=== PATIENT | male | born 1945 | race Caucasian/White ===

== ENCOUNTER 2018-10-06 09:46 | Emergency (ER) | payer MEDICARE, OTHER, SELFPAY ==
[2018-10-06 09:54] VITALS: BP 149/76; PULSE 76; RESP 16; TEMP 36.3; O2SAT 97
--- NOTE | 2018-10-06 09:59 | W.ED.GENAD ---
Discharge Plan Disposition Patient Disposition: HOME Condition: Fair Discharge Details Chief Complaint: Sorethroat Clinical Impression: URI (upper respiratory infection), Acute pharyngitis Primary Care Provider: Kei Gonzalez ED Provider: Fidelina Colón Home Meds and New Rx's Prescriptions: New benzonatate [Tessalon Perles] 100 mg capsule 100 mg PO QID PRN (Reason: cough) Qty: 10 RF: 0 Continued aspirin [Aspir-81] 81 MG tablet,delayed release (DR/EC) 81 mg PO DAILY RF: 0 gemfibrozil 600 MG tablet 600 mg PO BID RF: 0 magnesium oxide 250 MG tablet 250 mg PO DAILY RF: 0 cholecalciferol (vitamin D3) [Vitamin D3] 2,000 UNIT capsule 2,000 unit PO DAILY RF: 0 terazosin 5 MG capsule 5 mg PO HS RF: 0 levothyroxine 25 MCG tablet 75 mcg PO DAILY RF: 0 amlodipine 10 MG tablet 10 mg PO DAILY RF: 0 lisinopril-hydrochlorothiazide 1 EACH tablet 1 tab PO DAILY RF: 0 naproxen 500 MG tablet 500 mg PO DAILY RF: 0 Discharge Instructions Instructions: Pharyngitis (ED), Upper Respiratory Infection (ED) Additional Instructions: Encourage hydration. May continue with Aleve to help with discomfort. He may augment this with Tylenol. 500 mg every 6 hours as needed. He may also try warm water and honey to help with sore throat. Tessalon Perles as prescribed to help with cough. Afrin or nasal saline may help with congestion and postnasal drip. If you develop fevers, difficulty breathing, shortness of breath, inability to stay hydrated or other new/worsening symptoms please seek care urgently once again. If you have not improved next week please follow-up with primary care. Referrals: Kei Gonzalez [Primary Care Provider] - Discharge Data Discharge Date/Time-TO BE ENTERED AT DEPARTURE: 10/06/18 10:29 Medical Decision Making Patient 73-year-old male, accompanied by daughter, with chief complaint of sore throat. He reports that he initially began with upper respiratory symptoms such as a cold approximately 1 week ago. He reports that his cough has been improving. Denies any fevers or chills. Denies any shortness of breath. Primary concern at this time is sore throat which began 2 days ago. States that 2 days ago he also began noting more congestion and sinus discomfort. Has tried NyQuil which did help and get rest. Is endorsing postnasal drip. Has been able to hydrate well. On exam, patient appears nontoxic. Breathing comfortably. No respiratory distress. Lungs are clear. Vital signs concerning for slight hypotension which patient has a history of. He is afebrile, pulse is normal. Posterior oropharynx is notable for cobblestoning but no swelling or exudate. Patient has had surgery to remove tonsils and uvula. No lymphadenopathy. No sinus discomfort with palpation peer Advised likely viral etiology. Rapid strep testing was negative. I encouraged hydration. Will prescribe Tessalon Perles as cough seems to greatly exacerbate his sore throat. Advised Afrin or nasal saline to help with sinus congestion. We discussed home remedies and [id number] management of his sore throat and postnasal drip. We discussed new/worsening symptoms when to seek care urgently once again. All his questions and concerns were addressed and he is in agreement this plan. Advised that she not take Afrin more than 3 days HPI General Mode of arrival: ambulatory. Date/Time Provider Initiated Documentation: 10/06/18 09:54. Limitations to Documentation: no limitations. Information obtained by: patient and family (accompanied by daughter). History of Present Illness 73 year old M presents to the emergency department with the chief complaint of sore throat, described as moderate, with intensity rated at 9. Quality is described as burning, Patient reports no radiation. Patient started experiencing this day(s) (2) and it has been constant. No relieving factors improve symptom(s), No exacerbating factors reported . Patient notes cough; denies chest pain, diaphoresis, fever/chills, headaches, loss of appetite, nausea/vomiting, rash, shortness of breath and weakness. Patient did receive the following treatments prior to arrival, other (nyquil) Related Data Home Medications Medication Instructions Recorded Confirmed amlodipine 10 mg PO DAILY 11/18/13 10/06/18 levothyroxine 75 mcg PO DAILY 11/18/13 10/06/18 lisinopril-hydrochlorothiazide 1 tab PO DAILY 11/18/13 10/06/18 naproxen 500 mg PO DAILY 11/18/13 10/06/18 terazosin 5 mg PO HS 11/18/13 07/06/17 aspirin [Aspir-81] 81 mg PO DAILY tab-cap 10/10/16 10/06/18 cholecalciferol (vitamin D3) 2,000 unit PO DAILY tab-cap 10/10/16 10/06/18 [Vitamin D3] gemfibrozil 600 mg PO BID tab-cap 10/10/16 10/06/18 magnesium oxide 250 mg PO DAILY tab-cap 10/10/16 10/06/18 benzonatate [Tessalon Perles] 100 mg PO QID PRN #10 [facility] 10/06/18 Previous Rx's Medication Instructions Recorded benzonatate [Tessalon Perles] 100 mg PO QID PRN #10 [facility] 10/06/18 Allergies Allergy/AdvReac Type Severity Reaction Status Date / Time No Known Allergies Allergy Unverified 10/06/18 09:57 General Stated Complaint: Sorethroat SUE: 5 Review of Systems Constitutional Reports as per HPI, Denies chills, Denies fever(s), Denies headache(s) and Denies poor appetite Eyes Reports as per HPI, Denies eye discharge and Denies irritation ENT Denies ear discharge, Denies otalgia, Denies headache(s), Reports nasal congestion, Reports nasal discharge, Reports post nasal drip, Denies sinus pain, Reports sinus pressure, Reports sore throat and Denies throat swelling Cardiovascular Reports as per HPI, Denies chest pain and Denies dyspnea Respiratory Reports cough, Denies pain on inspiration, Denies pain with cough and Denies dyspnea Gastrointestinal Reports as per HPI, Denies abdominal pain, Denies change in bowel habits, Denies nausea and Denies vomiting Integumentary/Breasts Reports as per HPI and Denies rash Neurologic Denies headache(s) Allergic/Immunologic Denies throat swelling [facility] Social History Smoking/Tobacco Use Status: Never Exam Const General: cooperative, healthy appearing, comfortable, no acute distress, well developed and well groomed Nutritional Appearance: average body habitus and well nourished Orientation: alert and awake [facility] Head: normal to inspection, normocephalic and atraumatic Ears: hearing grossly normal bilaterally, external ears normal and TM's normal bilaterally General nose exam: external nose normal and nares normal Face and sinus: normal facial exam, sinuses nontender and face symmetric Mouth: oral mucosae normal, lip normal, tongue normal, oropharynx normal, moist mucous membranes, no muffled voice, no trismus and No restricted motion Teeth and gingiva: dentition normal Throat: uvula not midline (uvula absent), posterior oropharynx abnormal cobblestoning and tonsils absent Eyes General: appearance normal, both eyes and all related structures Neck Neck: normal visual inspection, full ROM, no lymphadenopathy and no meningeal signs Resp Effort & Inspection: normal respiratory effort, able to speak in complete sentences and no respiratory distress Auscultation: clear to auscultation bilaterally, no rales, no rhonchi and no wheezes Cardio Rate: regular rate Rhythm: regular rhythm Heart Sounds: murmur systolic Skin General skin exam: no rashes or lesions noted Neuro General: alert and awake Cognition: normal cognition Speech: speech normal Gait: normal gait Psych Appearance: grossly normal and well kempt Mental Status: mental status grossly normal Speech and Movement: speech and movement normal Course Vital Signs Temperature 36.3 C L 10/06/18 09:54 Pulse 76 10/06/18 09:54 Respiratory Rate 16 10/06/18 09:54 Blood Pressure 149/76 H 10/06/18 09:54 Pulse Oximetry 97 10/06/18 09:54 Temperature 36.3 C L 10/06/18 09:54 Temperature Source Skin 10/06/18 09:54 Pulse 76 10/06/18 09:54 Respiratory Rate 16 10/06/18 09:54 Respiratory Effort Non-Labored 10/06/18 09:54 Blood Pressure 149/76 H 10/06/18 09:54 Pulse Oximetry 97 10/06/18 09:54 Oxygen Delivery Method Room Air 10/06/18 09:54 Oxygen Flow Rate 0 10/06/18 09:54 Pain Level 9 10/06/18 09:54
--- NOTE | 2018-10-06 10:24 | ED.GENADUL_ITS ---
Discharge Plan Disposition Patient Disposition: HOME Condition: Fair Discharge Details Chief Complaint: Sorethroat Clinical Impression: URI (upper respiratory infection), Acute pharyngitis Primary Care Provider: Kei Gonzalez ED Provider: Fidelina Colón Home Meds and New Rx's Prescriptions: New benzonatate [Tessalon Perles] 100 mg capsule 100 mg PO QID PRN (Reason: cough) Qty: 10 RF: 0 Continued aspirin [Aspir-81] 81 MG tablet,delayed release (DR/EC) 81 mg PO DAILY RF: 0 gemfibrozil 600 MG tablet 600 mg PO BID RF: 0 magnesium oxide 250 MG tablet 250 mg PO DAILY RF: 0 cholecalciferol (vitamin D3) [Vitamin D3] 2,000 UNIT capsule 2,000 unit PO DAILY RF: 0 terazosin 5 MG capsule 5 mg PO HS RF: 0 levothyroxine 25 MCG tablet 75 mcg PO DAILY RF: 0 amlodipine 10 MG tablet 10 mg PO DAILY RF: 0 lisinopril-hydrochlorothiazide 1 EACH tablet 1 tab PO DAILY RF: 0 naproxen 500 MG tablet 500 mg PO DAILY RF: 0 Discharge Instructions Instructions: Pharyngitis (ED), Upper Respiratory Infection (ED) Additional Instructions: Encourage hydration. May continue with Aleve to help with discomfort. He may augment this with Tylenol. 500 mg every 6 hours as needed. He may also try warm water and honey to help with sore throat. Tessalon Perles as prescribed to help with cough. Afrin or nasal saline may help with congestion and postnasal drip. If you develop fevers, difficulty breathing, shortness of breath, inability to stay hydrated or other new/worsening symptoms please seek care urgently once again. If you have not improved next week please follow-up with primary care. Referrals: Kei Gonzalez [Primary Care Provider] - Discharge Data Discharge Date/Time-TO BE ENTERED AT DEPARTURE: 10/06/18 10:29 Medical Decision Making Patient 73-year-old male, accompanied by daughter, with chief complaint of sore throat. He reports that he initially began with upper respiratory symptoms such as a cold approximately 1 week ago. He reports that his cough has been improving. Denies any fevers or chills. Denies any shortness of breath. Primary concern at this time is sore throat which began 2 days ago. States that 2 days ago he also began noting more congestion and sinus discomfort. Has tried NyQuil which did help and get rest. Is endorsing postnasal drip. Has been able to hydrate well. On exam, patient appears nontoxic. Breathing comfortably. No respiratory distress. Lungs are clear. Vital signs concerning for slight hypotension which patient has a history of. He is afebrile, pulse is normal. Posterior oropharynx is notable for cobblestoning but no swelling or exudate. Patient has had surgery to remove tonsils and uvula. No lymphadenopathy. No sinus discomfort with palpation peer Advised likely viral etiology. Rapid strep testing was negative. I encouraged hydration. Will prescribe Tessalon Perles as cough seems to greatly exacerbate his sore throat. Advised Afrin or nasal saline to help with sinus congestion. We discussed home remedies and [id number] management of his sore throat and postnasal drip. We discussed new/worsening symptoms when to seek care u rgently once again. All his questions and concerns were addressed and he is in agreement this plan. Advised that she not take Afrin more than 3 days HPI General Mode of arrival: ambulatory . Date/Time Provider Initiated Documentation: 10/06/18 09:54 . Limitations to Documentation: no limitations . Information obtained by: patient and family (accompanied by daughter) . History of Present Illness 73 year old M presents to the emergency department with the chief complaint of sore throat, described as moderate, with intensity rated at 9. Quality is described as burning, Patient reports no radiation. Patient started experiencing this day(s) (2) and it has been constant. No relieving factors improve symptom(s), No exacerbating factors reported . Patient notes cough; denies chest pain, diaphoresis, fever/chills, headaches, loss of appetite, nausea/vomiting, rash, shortness of breath and weakness. Patient did receive the following treatments prior to arrival, other (nyquil) Related Data Home Medications Medication Instructions Recorded Confirmed amlodipine 10 mg PO DAILY 11/18/13 10/06/18 levothyroxine 75 mcg PO DAILY 11/18/13 10/06/18 lisinopril-hydrochlorothiazide 1 tab PO DAILY 11/18/13 10/06/18 naproxen 500 mg PO DAILY 11/18/13 10/06/18 terazosin 5 mg PO HS 11/18/13 07/06/17 aspirin [Aspir-81] 81 mg PO DAILY tab-cap 10/10/16 10/06/18 cholecalciferol (vitamin D3) 2,000 unit PO DAILY tab-cap 10/10/16 10/06/18 [Vitamin D3] gemfibrozil 600 mg PO BID tab-cap 10/10/16 10/06/18 magnesium oxide 250 mg PO DAILY tab-cap 10/10/16 10/06/18 benzonatate [Tessalon Perles] 100 mg PO QID PRN #10 [facility] 10/06/18 Previous Rx's Medication Instructions Recorded benzonatate [Tessalon Perles] 100 mg PO QID PRN #10 [facility] 10/06/18 Allergies Allergy/AdvReac Type Severity Reaction Status Date / Time No Known Allergies Allergy Unverified 10/06/18 09:57 General Stated Complaint: Sorethroat SUE: 5 Review of Systems Constitutional Reports as per HPI, Denies chills, Denies fever(s), Denies headache(s) and Denies poor appetite Eyes Reports as per HPI, Denies eye discharge and Denies irritation ENT Denies ear discharge, Denies otalgia, Denies headache(s), Reports nasal congestion, Reports nasal discharge, Reports post nasal drip, Denies sinus pain, Reports sinus pressure, Reports sore throat and Denies throat swelling Cardiovascular Reports as per HPI, Denies chest pain and Denies dyspnea Respiratory Reports cough, Denies pain on inspiration, Denies pain with cough and Denies dyspnea Gastrointestinal Reports as per HPI, Denies abdominal pain, Denies change in bowel habits, Denies nausea and Denies vomiting Integumentary/Breasts Reports as per HPI and Denies rash Neurologic Denies headache(s) Allergic/Immunologic Denies throat swelling [facility] Social History Smoking/Tobacco Use Status: Never Exam Const General: cooperative, healthy appearing, comfortable, no acute distress, well developed and well groomed Nutritional Appearance: average body habitus and well nourished Orientation: alert and awake [facility] Head: normal to inspection, normocephalic and atraumatic Ears: hearing grossly normal bilaterally, external ears normal and TM's normal bilaterally General nose exam: external nose normal and nares normal Face and sinus: normal facial exam, sinuses nontender and face symmetric Mouth: oral mucosae normal, lip normal, tongue normal, oropharynx normal, moist mucous membranes, no muffled voice, no trismus and No restricted motion Teeth and gingiva: dentition normal Throat: uvula not midline (uvula absent), posterior oropharynx abnormal cobblestoning and tonsils absent Eyes General: appearance normal, both eyes and all related structures Neck Neck: normal visual inspection, full ROM, no lymphadenopathy and no meningeal signs Resp Effort & Inspection: normal respiratory effort, able to speak in complete sentences and no respiratory distress Auscultation: clear to auscultation bilaterally, no rales, no rhonchi and no wheezes Cardio Rate: regular rate Rhythm: regular rhythm Heart Sounds: murmur systolic Skin General skin exam: no rashes or lesions noted Neuro General: alert and awake Cognition: normal cognition Speech: speech normal Gait: normal gait Psych Appearance: grossly normal and well kempt Mental Status: mental status grossly normal Speech and Movement: speech and movement normal Course Vital Signs Temperature 36.3 C L 10/06/18 09:54 Pulse 76 10/06/18 09:54 Respiratory Rate 16 10/06/18 09:54 Blood Pressure 149/76 H 10/06/18 09:54 Pulse Oximetry 97 10/06/18 09:54 Temperature 36.3 C L 10/06/18 09:54 Temperature Source Skin 10/06/18 09:54 Pulse 76 10/06/18 09:54 Respiratory Rate 16 10/06/18 09:54 Respiratory Effort Non-Labored 10/06/18 09:54 Blood Pressure 149/76 H 10/06/18 09:54 Pulse Oximetry 97 10/06/18 09:54 Oxygen Delivery Method Room Air 10/06/18 09:54 Oxygen Flow Rate 0 10/06/18 09:54 Pain Level 9 10/06/18 09:54
== END 2018-10-06 10:29 | disposition home or self-care (01) ==
PROVIDERS: Emergency Provider Physician Assistant; PCP Family Medicine
DX: J06.9 Acute upper respiratory infection, unspecified (principal)
CPT/HCPCS: 87880; 99283; 87081

== ENCOUNTER 2022-07-20 14:58 | Emergency (ER) | payer OTHER, SELFPAY ==
[2022-07-20] VITALS (64 sets, daily range): BP systolic 147–186; BP diastolic 78–95; PULSE 56–68; RESP 9–27; TEMP 36.6–36.8; O2SAT 98
--- NOTE | 2022-07-20 15:00 | RT.EKG_ITS ---
APPROVED REPORT Exam: Resting ECG Reason for Exam: chest pain Patient Location: E HR:61 bpm ECG Measurements Heart Rate 61 AXIS NE 212 P 47 QRSd 96 QRS 72 QT 425 T 119 QTc 428 Conclusion Sinus rhythm...normal P axis, V-rate 60- 99 Borderline prolonged NE interval...NE >212, V-rate 50- 90 Probable left atrial enlargement...P >50mS, <-0.10mV V1 Probable inferior infarct, age indeterminate...Q>35mS, T neg, II III aVF Nonspecific T abnormalities, lateral leads...T <-0.10mV, I aVL V5 V6 sinus rhtyhm, normal axis, normal intervals, nonischemic
--- NOTE | 2022-07-20 16:00 | DI.RAD_ITS ---
Exam(s) XR PORTABLE CHEST AP EXAM: XR PORTABLE CHEST AP CLINICAL HISTORY: chest pain TECHNIQUE: 2D digital imaging was performed of the chest. One image was obtained. An AP view was ob tained. COMPARISON: CR CHEST 2 VIEWS PA,LAT from 11/18/2013 FINDINGS: MEDIASTINUM: Normal. HEART: Normal. PULMONARY VASCULATURE: Normal. LUNGS: Clear. PLEURAL SPACE: No pleural effusion or pneumothorax. BONE:Within normal limits for the patient's age. OTHER FINDINGS:Normal. IMPRESSION: No acute pulmonary findings. DATA REPOSITORY: RADIATION DOSE DELIVERED:
--- NOTE | 2022-07-20 16:02 | ED.GENADUL_ITS ---
Discharge Plan Disposition Patient Disposition: HOME Condition: Improving Discharge Details Chief Complaint: Chest Pain Clinical Impression: Chest pain, Abnormal liver enzymes, Kidney lesion Primary Care Provider: Chan Martinez ED Provider: Magno Christensen Home Meds and New Rx's Prescriptions: No Action aspirin [Aspir-81] 81 MG tablet,delayed release (DR/EC) 81 mg PO DAILY gemfibrozil 600 MG tablet 600 mg PO BID terazosin 5 MG capsule 5 mg PO HS levothyroxine 25 MCG tablet 75 mcg PO DAILY amlodipine 10 MG tablet 10 mg PO DAILY lisinopril-hydrochlorothiazide 1 EACH tablet 1 tab PO DAILY naproxen 500 MG tablet 500 mg PO PRN PRN tamsulosin 0.4 mg Capsule 0.4 mg PO DAILY finasteride 1 mg Tablet Discharge Instructions Instructions: Chest Pain (ED) Additional Instructions: Please follow-up with your primary care physician. Please follow-up with cardiology referral. Please return to the emergency department for any worsening symptoms Medical Decision Making 77-year-old male presents with exertional chest pain and dyspnea over the several days. Resolved with rest. Currently asymptomatic, hemodynamically stable. No peripheral edema. Lungs clear bilaterally. EKG nonischemic. Consider ACS versus angina versus musculoskeletal inflammation versus less likely GERD versus unlikely PE or aortic pathology. Will obtain screening EKG, x-ray, labs, aspirin close reassessment of symptoms. Disposition pending lab results reassessment of symptoms 19: 21 patient resting intervally no acute distress chest pain-free no respiratory symptoms. Hemodynamically stable. Given LFT elevations and bilirubin elevations, CT abdomen pelvis was ordered which was negative for acute biliary process however incidental kidney cyst found. Counseled patient regarding this incidental finding. Also counseled regarding LFT elevations. Will follow with primary care physician. Will be given cardiology referral given exertional dyspnea and chest pain HPI General Date/Time Provider Initiated Documentation: 07/20/22 16:00 . HPI Narrative: 77-year-old presents with chief of the past several days worse with exertion. Associated with mild shortness of breath. Resolves with rest. Denies leg swelling or leg pain. Denies history of coronary artery disease or intervention. Asymptomatic currently Related Data Home Medications Medication Instructions Recorded Confirmed amlodipine 10 mg tablet 10 mg PO DAILY 11/18/13 07/20/22 levothyroxine 25 mcg tablet 75 mcg PO DAILY 11/18/13 07/20/22 lisinopril 20 1 tab PO DAILY 11/18/13 07/20/22 mg-hydrochlorothiazide 25 mg tablet naproxen 500 mg tablet 500 mg PO PRN PRN 11/18/13 07/20/22 terazosin 5 mg capsule 5 mg PO HS 11/18/13 07/06/17 aspirin 81 mg tablet,delayed 81 mg PO DAILY 10/10/16 07/20/22 release (Aspir-) gemfibrozil 600 mg tablet 600 mg PO BID 10/10/16 07/20/22 finasteride 1 mg tablet mg 07/20/22 tamsulosin 0.4 mg capsule 0.4 mg PO DAILY 07/20/22 07/20/22 Allergies Allergy/AdvReac Type Severity Reaction Status Date / Time No Known Allergies Allergy Unverified 07/20/22 16:00 General Stated Complaint: Chest Pain SUE: 2 Review of Systems Narrative: Review of Systems Constitutional: negative Eyes: negative ENT: negative Cardiovascular: Chest pain Respiratory: negative Gastrointestinal: negative : negative Musculoskeletal: negative Skin: negative Neurologic: negative Psych: negative PFSH All Active Problems (Updated 07/20/22 @ 19:26 by Magno Christensen MD) Chest pain (Acute) Abnormal liver enzymes (Acute) Kidney lesion (Acute) Social History Smoking/Tobacco Use Status: Never Smoking risk assessment performed?: Yes Alcohol Intake: current Alcohol Intake frequency: a few times a month Drug use: Never Substance use type: does not use Do you feel safe at home: Yes Do you feel safe in your relationship?: Yes Additional Social history: at bedside Exam Narrative Exam Narrative: Physical Examination General: alert, awake, cooperative, resting comfortably, no acute distress HEENT: normocephalic, atraumatic; PERRL, EOM intact, conjunctiva normal; no nasal discharge; moist mucous membranes, oral and pharyngeal mucosa normal, tolerating secretions Neck: supple, trachea midline; full ROM Chest: normal to inspection Respiratory: normal respiratory effort, speaking in full sentences, clear to auscultation, no wheezing, rales or rhonchi Cardiac: regular rate, regular rhythm, S1S2 intact, no murmurs rubs or gallops GI: abdomen soft, non-tender, non-distended; no palpable mass or hepatosplenomegaly Skin: no lesions, rashes or trauma appreciated Neuro: AAOx3, normal speech, moving all extremities Extremities: No peripheral edema Psych: Appropriate mood and affect Course Vital Signs Vital signs: Vital Signs Temperature 36.6 C 07/20/22 15:08 Pulse 67 07/20/22 15:08 Respiratory Rate 18 07/20/22 15:08 Blood Pressure 169/83 H 07/20/22 15:08 Pulse Oximetry 98 07/20/22 15:08 Temperature 36.6 C 07/20/22 15:08 Temperature Source Temporal Artery Scan 07/20/22 15:08 Pulse 67 07/20/22 15:08 Respiratory Rate 18 07/20/22 15:08 Blood Pressure 169/83 H 07/20/22 15:08 Blood Pressure Position Sitting 07/20/22 15:08 Pulse Oximetry 98 07/20/22 15:08 Oxygen Delivery Method Room Air 07/20/22 15:08 Oxygen Flow Rate 0 07/20/22 15:08
[2022-07-20] MEDS: Aspirin 81 MG CHEW 243 MG CH (16:08)
[2022-07-20 16:12] LABS: Abs Immature Grans 0.04 10^3/uL (0.0-0.06); Absolute Basophil Count 0.05 10^3/uL (0.0-0.2); Absolute Eosinophil Count 0.27 10^3/uL (0.0-0.7); Absolute Lymphocyte Count 0.92 10^3/uL (1.2-3.4); Absolute Monocyte Count 0.43 10^3/uL (0.1-0.8); Absolute Neutrophil Count 3.79 10^3/uL (1.2-6.7); Basophils % 0.9; Eosinophils % 4.9; HCT 39.1 % (40.0-50.0); HGB 13.7 g/dL (13.5-17.5); Immature Grans % 0.7; Lymphocytes % 16.7; MCH 31.2 pg (27.0-33.0); MCV 89 fL (80-95); MPV 9.9 fL (8.0-11.0); Monocytes % 7.8; Platelet Count 217 10^3/uL (130-400); RBC 4.39 10^6/uL (4.36-5.78); RDW 12.1 % (11.8-14.1); RDW-SD 39.6 fL
[2022-07-20 16:27] LABS: INR 1.1 (0.9-1.1); PTT Activated 25.2 sec (21.0-27.5); Prothrombin Time 10.7 sec (9.3-11.0)
--- NOTE | 2022-07-20 16:30 | DI.CT_ITS ---
Exam(s) CT ABDOMEN PELVIS W EXAM: CT ABDOMEN PELVIS W CLINICAL HISTORY: elevated bili and LFTs, chest pain TECHNIQUE: Imaging Protocol: Axial computed tomography images with coronal and sagittal reformatted images were created and reviewed CONTRAST MATERIAL: Intravenous: Omnipaque 350 Contrast volume:100 mL Oral: No COMPARISON: No exams were available for comparison FINDINGS: ABDOMEN: Lung Bases: Coronary artery calcifications are present. Calcified granuloma are present. Liver: There does appear to be decreased density of the liver suggesting fatty infiltration. No danitza urable mass. Portal, Superior Mesenteric, and Splenic Veins: Unremarkable. Gallbladder and Biliary Tract: Cholelithiasis is present. There is no biliary ductal dilatation. Pancreas: Normal density, no abnormal calcifications or inflammatory process. Spleen: Normal. Adrenals: No masses seen. Kidneys: Normal size, contour and axis. No radiodense stones or obstructive uropathy. There is a 1.2 cm simple cyst in the right kidney. There is a 1.1 cm hyperdense left renal cortical lesion. Abdominal Aorta: Abdominal portion non-dilated. Atherosclerosis is present. Bowel: No obstruction or bowel wall thickening. Appendix is unremarkable. There is colonic diverticul osis, but no evidence of acute diverticulitis. Peritoneal Cavity: There is a small amount of free fluid in the pelvis. No free air. Lymph Nodes: Within normal limits. Bones: Within normal limits for the patient's age. Soft Tissues: There are small bilateral fat containing inguinal hernias. PELVIS: Bladder: There is mild symmetric thickening of the wall of the urinary bladder. Reproductive Organs: There is an enlarged prostate gland. Lymph Nodes: Within normal limits. Bones: Within normal limits for the patient's age. IMPRESSION: 1. Fatty infiltration of the liver. 2. Cholelithiasis. No evidence of acute cholecystitis on this examination. 3. 1.1 cm hyperdense left renal lesion. This may represent a hemorrhagic or proteinaceous cyst versu s a solid lesion. Correlation with ultrasound or MRI is recommended. RADIATION DOSE DELIVERED: 1,331.81mGy.cm Total DLP DATA REPOSITORY: All CT scans at this facility are submitted to the National Radiology Data Registry (NRDR) Dose Index Registry (DIR) with the [employer] (ACR). RADIATION OPTIMIZATION: All CT scans at this facility use at least one of these dose optimization te chniques: automated exposure control; mA and/or kV adjustment per patient size (includes targeted exa ms where dose is matched to clinical indication); or iterative reconstruction.
[2022-07-20 16:31] LABS: ALT 541 U/L (16-63); AST 361 U/L (15-37); Albumin 4.3 g/dL (3.4-5.0); Alkaline Phosphatase 129 U/L (46-116); Anion Gap 7.3 mmol/L (3-11); BUN 21 mg/dL (7-18); Bilirubin, Total 2.9 mg/dL (0.2-1.0); CO2 31.7 mmol/L (21.0-32.0); CREATININE 1.1 mg/dL (0.70-1.30); Calcium 9.4 mg/dL (8.5-10.1); Chloride 102 mmol/L (98-107); Estimated GFR 69.14 (mL/min/1.73m2); Glucose 112 mg/dL (74-106); Potassium 3.6 mmol/L (3.5-5.1); Sodium 141 mmol/L (136-145); Total Protein 7.3 g/dL (6.4-8.2); Troponin I < 50 ng/L (<or=60)
[2022-07-20] MEDS: Omnipaque 350 MG/ML 100 ML BTL IJ (18:01)
[2022-07-20] MEDS: Normal Saline - Diluent 50 ML VIAL IV (18:02)
[2022-07-20 18:55] LABS: Lipase 157 U/L (73-393)
--- NOTE | 2022-07-20 18:55 | DI.VRAD_ITS ---
PROCEDURE INFORMATION: Exam: CT Abdomen And Pelvis With Contrast Exam date and time: 07/20/2022 5:56 PM Age: 77 years old Clinical indication: Other: Elevated bili and lfts, chest pain TECHNIQUE: Imaging protocol: Computed tomography of the abdomen and pelvis with contrast. Contrast material: OMNIPAQUE 350; Contrast volume: 100 ml; Contrast route: INTRAVENOUS (IV); COMPARISON: CR XR PORTABLE CHEST AP 07/20/2022 4:07 PM FINDINGS: Heart: Coronary artery calcifications. Liver: Diffuse decrease in hepatic parenchymal density, consistent with fatty infiltration. Gallbladder and bile ducts: Stones at the gallbladder. Pancreas: Normal. No ductal dilation. Spleen: Normal. No splenomegaly. Adrenal glands: Normal. No mass. Kidneys and ureters: 1.2 cm simple cyst right kidney. No hydronephrosis. No ureteral stones. 11 mm indeterminate hyperdense lesion left kidney, hemorrhagic or proteinaceous cyst versus solid lesion. Stomach and bowel: Colonic diverticula present. No evidence of acute diverticulitis at this time. Appendix: No evidence of appendicitis. Intraperitoneal space: Mild free fluid. Vasculature: Aorta demonstrates mild atherosclerotic calcification. Lymph nodes: Unremarkable. No enlarged lymph nodes. Urinary bladder: Unremarkable as visualized. Reproductive: Hypertrophy of the prostate. Bones/joints: Unremarkable. No acute fracture. Soft tissues: Bilateral fat containing inguinal hernias without incarceration. IMPRESSION: 1. 11 mm indeterminate hyperdense lesion left kidney, hemorrhagic or proteinaceous cyst versus solid lesion. 2. Cholelithiasis. Dictated and Authenticated by: Ronald Alexander MD. Ordering:CHRIS Kiran MD
[2022-07-20 19:03] LABS: Troponin I < 50 ng/L (<or=60)
--- NOTE | 2022-07-20 19:56 | NUR.NOTE ---
Referral to Care Management to help set up [facility] [place] [facility] [place].Nursing Note:
== END 2022-07-20 19:42 | disposition home or self-care (01) ==
PROVIDERS: Emergency Provider Emergency Medicine; PCP Internal Medicine
DX: R07.9 Chest pain, unspecified (principal); R17 Unspecified jaundice; N28.9 Disorder of kidney and ureter, unspecified; R06.00 Dyspnea, unspecified
CPT/HCPCS: 36415; 80053; 83690; 93005; 96360; 99285; 71045; 74177; 84484; 85025; 85610; 85730; 93010; J3490

== ENCOUNTER 2022-12-09 17:16 | Observation (INO) | payer OTHER, SELFPAY ==
[2022-12-09] VITALS (29 sets, daily range): BP systolic 145–190; BP diastolic 71–87; PULSE 59–86; RESP 10–20; TEMP 36.6; O2SAT 80–100
--- NOTE | 2022-12-09 17:26 | W.ED.GENAD ---
Discharge Plan Disposition Patient Disposition: Admit to [facility] Condition: Fair Discharge Details Clinical Impression: Closed head injury with concussion, Hematoma of left parietal scalp, Chest wall contusion Primary Care Provider: Chan Martinez ED Provider: Obinna Lopez [facility] and New Rx's Prescriptions: No Action aspirin [Aspir-81] 81 MG tablet,delayed release (DR/EC) 81 mg PO DAILY levothyroxine 25 MCG tablet 75 mcg PO DAILY amlodipine 10 MG tablet 10 mg PO DAILY lisinopril-hydrochlorothiazide 1 EACH tablet 1 tab PO DAILY tamsulosin 0.4 mg Capsule 0.4 mg PO DAILY Medical Decision Making Patient presents to ED status post trauma related loss of consciousness with no recollection of what actually occurred. His was present and states that his loss of consciousness was short lived. He has evidence of scalp hematoma, small superficial laceration behind the left ear, anterior chest wall pain, neck pain, back pain. He is hemodynamically stable. He is neurologically intact. IV established and CT scans of the head, cervical spine, chest, abdomen, pelvis ordered. Laboratory studies sent. Morphine given for pain. Patient's EKG is sinus rhythm with no acute changes. Laboratory studies are unremarkable. His hemoglobin is normal. CT scans preliminarily read by radiology are all negative for any significant acute traumatic findings. Collar is removed patient with good range of motion of the neck. Complaining of headache, nausea, continued anterior and left shoulder pain. Likely suffered concussion with his fall and loss of consciousness. Will give Zofran for the nausea. We will try lidocaine patch on the anterior chest wall. Will reevaluate for potential discharge. Patient is unable to even sit up in bed without extreme nausea and dizziness. Discussed with surgery, Dr. Torres, for admission for concussion. Patient accepted to surgical service for further observation and management of his closed head injury with concussion, chest wall contusion, scalp hematoma. Lab Data Lab results reviewed: Yes I reviewed the patient's lab results. ECG Data Attestation: I personally reviewed and interpreted this ECG (s) as follows: Prior ECG tracings: available for review Interpretation: see EKG HPI General Mode of arrival: ambulatory. Date/Time Provider Initiated Documentation: 12/09/22 17:26. Limitations to Documentation: no limitations. Information obtained by: patient. HPI Narrative: Patient presents to ED status post presumed fall off a ladder with loss of consciousness. was in the room but was not witness to exactly what happened. He was trying to remove a being and he has no recollection of whether he fell or whether the being struck him. His reports that she found him on the floor unconscious for short period of time. He has significant pain and swelling to the left side of his head with some blood behind his left ear. He has some neck pain. He denies any neurologic symptoms. He denies nausea or vomiting. He complains of left anterior chest pain that is worse with breathing. He does not feel short of breath. He denies abdominal pain but does have low back pain. Denies any extremity injury. Related Data Home Medications Medication Instructions Recorded Confirmed amlodipine 10 mg tablet 10 mg PO DAILY 11/18/13 12/09/22 levothyroxine 25 mcg tablet 75 mcg PO DAILY 11/18/13 12/09/22 lisinopril 20 1 tab PO DAILY 11/18/13 12/09/22 mg-hydrochlorothiazide 25 mg tablet aspirin 81 mg tablet,delayed 81 mg PO DAILY 10/10/16 12/09/22 release (Aspir-) tamsulosin 0.4 mg capsule 0.4 mg PO DAILY 07/20/22 12/09/22 Allergies Allergy/AdvReac Type Severity Reaction Status Date / Time [id number] Reductase AdvReac Unknown Unverified 12/09/22 17:30 Inhibitor General USE: 2 Review of Systems Narrative: per HPI PFSH All Active Problems (Updated 12/09/22 @ 21:23 by Obinna Lopez MD) Closed head injury with concussion (Acute) Hematoma of left parietal scalp (Acute) Chest wall contusion (Acute) Medical History (Updated 12/09/22 @ 21:23 by Obinna Lopez MD) BPH (benign prostatic hyperplasia) HTN (hypertension) Hypercholesterolemia Hypothyroid Social History Smoking/Tobacco Use Status: Never Smoking risk assessment performed?: Yes Alcohol Intake: current Alcohol Intake frequency: a few times a month Drug use: Never Substance use type: does not use Do you feel safe at home: Yes Do you feel safe in your relationship?: Yes Additional Social history: at bedside Exam Narrative Exam Narrative: Const: WDWN elderly male in NAD. HEENT: NC. Large scalp hematoma to left parietal region. Very small laceration behind his left ear presumably from his glasses. Eyes: PERRL and EOMI. Normal conjunctiva and sclera. Neck: Trachea midline. Mild tenderness posterior cervical spine. Collar applied. Lungs: Normal respiratory effort. Lungs are clear. Tenderness left anterior chest. Cor: RRR without murmur/gallop. Good radial pulses. GI: Soft. NT/ND. No guarding or rebound. Back: No spinal tenderness. Neuro: A+O x 3. Normal speech, mentation, gait. Cranial nerves II - XII grossly intact. No gross motor or sensory deficit. Ext: No C/C/E. No deformity or tenderness.
--- NOTE | 2022-12-09 17:30 | RT.EKG_ITS ---
APPROVED REPORT Exam: Resting ECG Reason for Exam: chest pain Patient Location: E HR:77 bpm ECG Measurements Heart Rate 77 AXIS NE 202 P 60 QRSd 90 QRS 46 QT 413 T 49 QTc 468 Conclusion Sinus rhythm...normal P axis, V-rate 60- 99 Probable left atrial enlargement...P >50mS, <-0.10mV V1 There are no significant changes compared to prior EKG performed on 07/20/2022 at 15:19.
--- NOTE | 2022-12-09 17:30 | DI.CT_ITS ---
Exam(s) CT HEAD CERVICAL SPINE WO EXAM: CT HEAD CERVICAL SPINE WO CLINICAL HISTORY: fall from ladder with LOC. TECHNIQUE: Imaging Protocol: Axial computed tomography images with coronal and sagittal reformatted images were created and reviewed COMPARISON: No exams were available for comparison FINDINGS: BRAIN: There is a prominent left side scalp hematoma over the left temporoparietal region. There are no skull fractures. There is almost complete opacification of the left maxillary sinus. N o obvious fracture. Right maxillary sinus is clear. Sphenoid sinuses are clear. Frontal sinuses ar e clear although there is some mucosal thickening at the frontoethmoidal recesses and ethmoid air jose ls bilaterally. Mastoid air cells are clear. No fluid in the middle ear cavities. No basal skull f racture. There is no evidence of intracranial hemorrhage, mass effect, or shift of midline structures. There are no extra-axial fluid collections. The ventricles are not enlarged or shifted and there is no blo od within the ventricular system nor within the basal cisterns. CERVICAL SPINE: There is no evidence of fracture nor listhesis. No significant prevertebral soft tissue swelling. Multilevel chronic multilevel degenerative disc disease as well as prominent anterior bony ridging C3 -4-5-6 levels. Some facet arthropathy. There is no significant facet joint malalignment. No significant osseous lesions evident. IMPRESSION: No acute intracranial findings on this noninfused CT scan of the brain.Large left sided scalp hematom a. No evidence of epidural nor subdural hematoma at this time. Opacified left maxillary sinus. Right maxillary sinus is clear. No evidence of cervical spine fracture, malalignment, nor acute compromise of the cervical spinal can al. First read by [facility]. RADIATION DOSE DELIVERED: 1,630.34mGy.cm Total DLP DATA REPOSITORY: All CT scans at this facility are submitted to the National Radiology Data Registry (NRDR) Dose Index Registry (DIR) with the [employer] (ACR). RADIATION OPTIMIZATION: All CT scans at this facility use at least one of these dose optimization te chniques: automated exposure control; mA and/or kV adjustment per patient size (includes targeted exa ms where dose is matched to clinical indication); or iterative reconstruction.
--- NOTE | 2022-12-09 17:39 | DI.CT_ITS ---
Exam(s) CT CHEST/ABD/PEL W EXAM: CT CHEST/ABD/PEL W CLINICAL HISTORY: fall from ladder with LOC, CP, Back pain. TECHNIQUE: Imaging Protocol: Axial computed tomography images with coronal and sagittal reformatted images were created and reviewed CONTRAST MATERIAL: Intravenous: Omnipaque 350 Contrast volume:100 ml Oral: None COMPARISON: CT CT ABDOMEN PELVIS W from 07/20/2022 FINDINGS: CHEST: LUNGS: No confluent infiltrates nor pleural effusions. No pneumothorax. Some mucus is noted in the posterior right side wall of the trachea. No mucus in the mainstem bronchi.. MEDIASTINUM: No evidence of sternal fracture or mediastinal hematoma. No incidental hilar nor medias tinal adenopathy. Innominate vein and visualized great vessels appear intact. Visualized thyroid un remarkable. CARDIAC: Heart size is normal. There is no pericardial effusion.Intrathoracic aorta appears age-appr opriate. No significant trauma nor dissection of the thoracic aorta evident. OSSEOUS: No rib fractures. No compression fractures of vertebral bodies.. ABDOMEN: There is no ascites. No evidence of mesenteric nor bowel wall hematoma. LIVER: Mild steatosis. No hepatic laceration nor other significant focal findings in the liver. GALLBLADDER/BILIARY: Coli lithiasis. Small gallstones noted. No gallbladder wall edema. CBD not di lated. PANCREAS: No evidence of pancreatic mass nor dilatation of the pancreatic duct. SPLEEN: Normal size. No laceration evident. Splenic and portal veins are patent. Splenic and jonas l veins are patent. ADRENALS: There are no significant adrenal masses. KIDNEYS: No evidence of renal laceration or subcapsular hematoma. No cysts nor solid masses. No vikram culi. No hydronephrosis. No hydroureter. No clots nor other significant focal findings in the urin nick bladder with the exception of enlarged prostate projecting. ABDOMINAL AORTA: Calcified but not enlarged.. Common iliac arteries are also calcified but not enlar ged. No dissection flaps. LYMPH NODES: There is no retroperitoneal nor paraaortic adenopathy. ABDOMINAL WALL: No evidence of significant anterior abdominal wall nor inguinal hernia. No subcutane ous bruising nor subcutaneous fluid collections. GI: There is no evidence of bowel obstruction.No bowel wall hematomas. PELVIS: LYMPH NODES: There is no intrapelvic nor inguinal adenopathy. GI: No evidence of appendicitis.No evidence of sigmoid diverticulitis. URINARY BLADDER: No calculi nor masses evident REPRODUCTIVE: Enlarged and lobulated prostate gland which indents the bladder base. OSSEOUS: Multilevel chronic degenerative disc disease in the lumbar spine. No fractures. No listhes is. Facet degenerative changes. No facet joint malalignment. No sacral fractures. IMPRESSION: 1. No acute posttraumatic findings in the chest, abdomen, and pelvis.. 2. Cholelithiasis. No evidence of acute cholecystitis. 3. Enlarged and lobulated prostate gland. No significant osseous lesions. 4. No acute fractures evident. RADIATION DOSE DELIVERED: 1,561.19mGy.cm Total DLP DATA REPOSITORY: All CT scans at this facility are submitted to the National Radiology Data Registry (NRDR) Dose Index Registry (DIR) with the [employer] (ACR). RADIATION OPTIMIZATION: All CT scans at this facility use at least one of these dose optimization te chniques: automated exposure control; mA and/or kV adjustment per patient size (includes targeted exa ms where dose is matched to clinical indication); or iterative reconstruction.
[2022-12-09 17:59] LABS: Abs Immature Grans 0.04 10^3/uL (0.0-0.06); Absolute Basophil Count 0.04 10^3/uL (0.0-0.2); Absolute Eosinophil Count 0.24 10^3/uL (0.0-0.7); Absolute Lymphocyte Count 1.23 10^3/uL (1.2-3.4); Absolute Monocyte Count 0.53 10^3/uL (0.1-0.8); Absolute Neutrophil Count 4.33 10^3/uL (1.2-6.7); Basophils % 0.6; Eosinophils % 3.7; HCT 41.3 % (40.0-50.0); HGB 14.7 g/dL (13.5-17.5); Immature Grans % 0.6; Lymphocytes % 19.2; MCH 30.8 pg (27.0-33.0); MCHC 35.6 % (32.0-36.0); MCV 87 fL (80-95); MPV 9.8 fL (8.0-11.0); Monocytes % 8.3; Neutrophils % 67.6; Platelet Count 168 10^3/uL (130-400); RBC 4.77 10^6/uL (4.36-5.78); RDW 12.2 % (11.8-14.1); RDW-SD 38.5 fL; WBC 6.41 10^3/uL (4.4-10.8)
[2022-12-09 18:15] LABS: ALT 65 U/L (16-63); AST 34 U/L (15-37); Albumin 4.6 g/dL (3.4-5.0); Alkaline Phosphatase 77 U/L (46-116); Anion Gap 8.3 mmol/L (3-11); BUN 28 mg/dL (7-18); Bilirubin, Total 0.7 mg/dL (0.2-1.0); CO2 28.7 mmol/L (21.0-32.0); Calcium 9.4 mg/dL (8.5-10.1); Chloride 100 mmol/L (98-107); Estimated GFR 77.52 (mL/min/1.73m2); Glucose 115 mg/dL (74-106); Potassium 3.5 mmol/L (3.5-5.1); Sodium 137 mmol/L (136-145); Total Protein 7.5 g/dL (6.4-8.2)
[2022-12-09] MEDS: MORPHine 10 MG/ML VIAL 2 MG IVP (18:23)
[2022-12-09] MEDS: Omnipaque 350 MG/ML 100 ML BTL IJ (18:35)
[2022-12-09] MEDS: Normal Saline - Diluent 50 ML VIAL IJ (18:36)
[2022-12-09] MEDS: MORPHine 10 MG/ML VIAL 6 MG IVP (18:39)
--- NOTE | 2022-12-09 19:12 | DI.VRAD_ITS ---
PROCEDURE INFORMATION: Exam: CT Head Without Contrast Exam date and time: 12/09/2022 6:42 PM Age: 77 years old Clinical indication: Injury or trauma; Fall; Concussion/head injury; Consciousness not specified; Additional info: Fall from ladder with loc, cp, back pain TECHNIQUE: Imaging protocol: Computed tomography of the head without contrast. Radiation optimization: All CT scans at this facility use at least one of these dose optimization techniques: automated exposure control; mA and/or kV adjustment per patient size (includes targeted exams where dose is matched to clinical indication); or iterative reconstruction. COMPARISON: No relevant prior studies available. FINDINGS: Brain: No intracranial hemorrhage or extra-axial fluid collection. No evidence of mass effect or midline shift. Odonnell-white matter differentiation is intact. Cerebral ventricles: No ventriculomegaly. Paranasal sinuses: Near complete opacification of the left maxillary sinus. Mastoid air cells: Unremarkable. Bones/joints: No acute calvarial fracture. Soft tissues: Left lateral scalp hematoma. IMPRESSION: 1. No acute intracranial pathology. 2. Left lateral scalp hematoma. 3. Near complete opacification of the left maxillary sinus. PROCEDURE INFORMATION: Exam: CT Cervical Spine Without Contrast Exam date and time: 12/09/2022 6:42 PM Age: 77 years old Clinical indication: Injury or trauma; Fall; Concussion/head injury; Consciousness not specified; Additional info: Fall from ladder with loc, cp, back pain TECHNIQUE: Imaging protocol: Computed tomography of the cervical spine without contrast. Radiation optimization: All CT scans at this facility use at least one of these dose optimization techniques: automated exposure control; mA and/or kV adjustment per patient size (includes targeted exams where dose is matched to clinical indication); or iterative reconstruction. COMPARISON: CR XR PORTABLE CHEST AP 07/20/2022 4:07 PM FINDINGS: Bones/joints: Vertebral body heights are maintained. No locked or perched facets. Multilevel facet arthropathy. No acute cervical spine fracture. The dens is intact. Atlanto-axial intervals are normal. Multilevel degenerative changes with intervertebral disc height loss and osteophyte formation, with multilevel areas of mild to moderate canal stenosis. Lungs: Lung apices are clear. Soft tissues: Unremarkable. IMPRESSION: No acute cervical spine fracture. Dictated and Authenticated by: Ridge Elizalde MD. Ordering:LAURENCE Yeboah MD
--- NOTE | 2022-12-09 19:30 | DI.VRAD_ITS ---
PROCEDURE INFORMATION: Exam: CT Chest With Contrast; Diagnostic Exam date and time: 12/09/2022 6:58 PM Age: 77 years old Clinical indication: Other: Fall from ladder with loc; Additional info: Fall from ladder with loc, cp, back pain TECHNIQUE: Imaging protocol: Diagnostic computed tomography of the chest with contrast. 3D rendering (Not supervised by radiologist): MIP and/or 3D reconstructed images were created by the technologist. Contrast material: 350; Contrast volume: 100 ml; Contrast route: INTRAVENOUS (IV); COMPARISON: CR XR PORTABLE CHEST AP 07/20/2022 4:07 PM FINDINGS: Lungs: Unremarkable. No consolidation. No masses. Pleural spaces: Unremarkable. No pneumothorax. No pleural effusion. Heart: Unremarkable. No cardiomegaly. No pericardial effusion. Coronary arteries: Moderate coronary artery calcification noted. Lymph nodes: Unremarkable. No enlarged lymph nodes. Vasculature: Moderate atherosclerotic calcification noted throughout the aorta. No evidence of aortic aneurysm or dissection. Bones/joints: Moderate degenerative changes are noted throughout the thoracic spine. Soft tissues: Unremarkable. IMPRESSION: No acute posttraumatic changes in the chest. Chronic osseous and atherosclerotic changes noted. PROCEDURE INFORMATION: Exam: CT Abdomen And Pelvis With Contrast Exam date and time: 12/09/2022 6:58 PM Age: 77 years old Clinical indication: Other: Fall from ladder with loc; Additional info: Fall from ladder with loc, cp, back pain TECHNIQUE: Imaging protocol: Computed tomography of the abdomen and pelvis with contrast. 3D rendering (Not supervised by radiologist): MIP and/or 3D reconstructed images were created by the technologist. Contrast material: 350; Contrast volume: 100 ml; Contrast route: INTRAVENOUS (IV); COMPARISON: CT ABDOMEN PELVIS W 07/20/2022 5:56 PM FINDINGS: Liver: Normal. No mass. Gallbladder and bile ducts: A single small calcified gallstone noted in the gallbladder. Gallbladder is otherwise unremarkable. Pancreas: Normal. No ductal dilation. Spleen: Normal. No splenomegaly. Adrenal glands: Normal. No mass. Kidneys and ureters: Normal. No hydronephrosis. Stomach and bowel: Unremarkable. No obstruction. No mucosal thickening. Appendix: No evidence of appendicitis. Intraperitoneal space: Unremarkable. No free air. No significant fluid collection. Vasculature: Dense atherosclerotic calcification noted in the aorta and its branches. No evidence of aortic aneurysm or dissection. Lymph nodes: Unremarkable. No enlarged lymph nodes. Urinary bladder: Bladder is mildly distended but otherwise unremarkable. Reproductive: Prostate gland is enlarged, measuring 5.5 cm in diameter and producing moderate mass effect upon the bladder base. Bones/joints: Unremarkable. No acute fracture. Soft tissues: Unremarkable. IMPRESSION: 1. No acute posttraumatic changes. 2. Moderate prostatomegaly 3. Mild findings of cholelithiasis 4. Chronic osseous and atherosclerotic changes as described Dictated and Authenticated by: Des Haywood MD. Ordering:LAURENCE Yeboah MD
[2022-12-09] MEDS: Lidocaine 5% Patch 1 PATCH TP (20:11)
[2022-12-09] MEDS: Ondansetron 4 MG/2 ML VIAL IVP (20:12)
[2022-12-09] MEDS: Lactated Ringers 1,000 ML 150 ML IV (20:21)
[2022-12-09] MEDS: ACETAMINOPHEN 1,000 MG/100 ML BTL 400 MG IVPB (21:21)
[2022-12-09 21:50] LABS: Source Nasal/Nares
[2022-12-09 22:21] LABS: COVID-19 PCR Negative (Negative)
[2022-12-10] MEDS: ACETAMINOPHEN 1,000 MG/100 ML BTL 400 MG IVPB ×2 (00:02→08:05)
[2022-12-10] MEDS: Lactated Ringers 1,000 ML 150 ML IV ×2 (03:34→09:51)
[2022-12-10 06:31] VITALS: BP 148/78; PULSE 62; RESP 16; TEMP 36.7; O2SAT 95
--- NOTE | 2022-12-10 10:04 | INITIAL_ITS ---
- If Service Date Differs Date of service: 12/10/22 Time of Service: 10:04 Care Management Initial Assess REASON FOR HOSPITALIZATION:: Concussion, Scalp hematoma, Chest contusion. PAST MEDICAL HISTORY/PAST SURGICAL HISTORY:: All Active Problems: Closed head injury with concussion (Acute),. Hematoma of left parietal scalp (Acute), and Chest wall contusion (Acute). Medical History: BPH (benign prostatic hyperplasia), HTN (hypertension),. Hypercholesterolemia, and Hypothyroid. No surgical history noted in chart. PREVIOUS FUNCTIONAL STATUS/SOCIAL/FAMILY SUPPORTS:: Michael lives in [place] with his , Kasie. Their daughter, Blanca, lives on the property and is supportive of the couple. 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 He drives and is independent with ADLs at baseline. CURRENT FUNCTIONAL STATUS:: Michael is lying in bed when CM comes to meet with him. His Kasie and daughter Blanca are present in the room. He shares he was made NPO upon arrival at the hospital last evening and was quite happy this morning when the kitchen notified him he could have food. ADVANCE DIRECTIVES:: None on file but patient says he has one and believes his is the appointed Health Care Agent. Has patient been provided with info about the portal/API?: Yes Did the patient sign up for the portal?: No CODE STATUS:: Full Code INSURANCE COVER[place] / FINANCIAL [place]UES[place] CURRENT HOME/COMMUNITY SERVICES/EQUIPMENT:: None. PRIMARY CARE PHYSICIAN:: Chan Martinez MD ([place]) POTENTIAL DISCHARGE NEEDS:: Follow up appointment with PCP. PATIENT/FAMILY EDUCATION NEEDS:: Review discharge instructions and discuss Ask Me Three. ANTICIPATED BARRIERS TO DISCHARGE:: None anticipated at this time. TRANSPORTATION:: Via private vehicle with family. PLAN:: Michael will likely discharge home with no services when medically cleared by provider. He will follow up with his PCP and plan of care as instructed. He will be transported home by his daughter via private vehicle when ready. CM will continue to follow.
--- NOTE | 2022-12-10 10:40 | HPE_ITS ---
Date of service: 12/10/22 Time of Service: 10:41 Assessment and Plan Assessment and plan (1) Closed head injury with concussion: Status: Acute Assessment and plan: Patient still with some mild dizziness. Will get PT to see patient and assess to see if he is safe to go home If safe to go home then will D/C with concussion precautions (2) Hematoma of left parietal scalp: Status: Acute (3) Chest wall contusion: Status: Acute Assessment and plan: tender over the left clavicle. No fracture noted on CT scan (4) Shoulder pain: Status: Acute Assessment and plan: Acute on chronic Doing PT already May benefit from Orthopaedic referral. ? MRI prior to referral History of Present Illness Narrative: Mr. Aguilar is a pleasant 77 year old who fell last night from a latter. He doesn't remember the fall itself and his states that he was unconscious for a few seconds. He was brought to the ER were he was mei scanned. He was noted to have a left lateral scalp hematoma. NO other injuries noted on his chest, abdo/pelvis CT scan. Incidentaly noted was near complete opacification of the left maxillary sinus. Patient has no complaints of nasal congestion. He was nauseous and dizzy in the ER so admission was done for observation. This morning he complains of headache, right neck pain and left shoulder pain. He has some mild dizziness if he bends forward. He was able to tolerate a regular breakfast. He has not been up to walk. Patient tells me that he is seeing PT for bilateral shoulder pain. I reviewed the CT scans myself Review of Systems Constitutional Constitutional: Denies fatigue, Denies fever(s), Reports headache(s), Denies weakness and Denies weight loss Eyes Eyes: Denies blurry vision, Denies change in vision, Denies loss of vision and Denies photophobia ENT Ears, Nose, Mouth, and Throat: Denies dysphagia, Reports headache(s), Denies nasal congestion and Denies odynophagia Cardiovascular Cardiovascular: Denies chest pain, Denies chest pain at rest, Denies irregular heart rhythm, Denies dyspnea and Denies dyspnea on exertion Respiratory Respiratory: Denies cough, Denies dyspnea and Denies dyspnea on exertion Gastrointestinal Gastrointestinal: Denies abdominal pain, Denies dysphagia, Denies dyspepsia, Denies heartburn and Denies odynophagia Genitourinary Genitourinary: Denies hematuria, Denies oliguria and Denies dysuria Musculoskeletal Musculoskeletal: Reports arthralgias and Denies muscle weakness Integumentary/Breasts Skin/Breast: Reports system reviewed and no additional complaints, except as documented Neurologic Neurologic: Reports headache(s), Denies loss of vision and Denies weakness Psychiatric Psychiatric: Reports system reviewed and no additional complaints, except as documented Endocrine Endocrine: Reports system reviewed and no additional complaints, except as documented and Denies fatigue Hematologic/Lymphatic Hematologic/Lymphatic: Reports system reviewed and no additional complaints, except as documented Allergic/Immunologic Allergic/Immunologic: Reports system reviewed and no additional complaints, except as documented PFSH All Active Problems (Updated 12/10/22 @ 11:02 by Lou Torres MD) Shoulder pain (Acute) Closed head injury with concussion (Acute) Hematoma of left parietal scalp (Acute) Chest wall contusion (Acute) Medical History BPH (benign prostatic hyperplasia) HTN (hypertension) Hypercholesterolemia Hypothyroid Social History Smoking/Tobacco Use Status: Never Smoking risk assessment performed?: Yes Alcohol Intake: current Alcohol Intake frequency: a few times a month Drug use: Never Substance use type: does not use Do you feel safe at home: Yes Do you feel safe in your relationship?: Yes Additional Social history: at bedside Meds Allergies and Home Medications Allergies Allergy/AdvReac Type Severity Reaction Status Date / Time Patweyy-MOA-NpC Reductase AdvReac Unknown Unverified 12/09/22 17:30 Inhibitor Home Medications Medication Instructions Recorded Confirmed Type amlodipine 10 mg tablet 10 mg PO DAILY 11/18/13 12/09/22 History levothyroxine 25 mcg tablet 75 mcg PO DAILY 11/18/13 12/09/22 History lisinopril 20 1 tab PO DAILY 11/18/13 12/09/22 History mg-hydrochlorothiazide 25 mg tablet aspirin 81 mg tablet,delayed 81 mg PO DAILY 10/10/16 12/09/22 History release (Aspir-) tamsulosin 0.4 mg capsule 0.4 mg PO DAILY 07/20/22 12/09/22 History Exam Const General: cooperative, healthy appearing, comfortable and no acute distress Nutritional Appearance: average body habitus Orientation: alert, awake and oriented x3 [facility] Head: scalp tenderness (left lateral scalp hematoma) Ears: other (some dried blood behind the ear on the left. Small cut.) Mouth: oral mucosae normal, lip normal and tongue normal Eyes Pupils: PERRL Neck Neck: normal visual inspection, no lymphadenopathy, trachea midline and tender (along the right sternocleidomastoid) Chest Chest: normal inspection of the chest Resp Effort & Inspection: normal respiratory effort Auscultation: clear to auscultation bilaterally Cardio Rate: regular rate Rhythm: regular rhythm Heart Sounds: no gallops, no murmurs and no rubs GI Palpation: soft, no hepatosplenomegaly and nontender Auscultation: normal bowel sounds General: deferred Back/Spine/Pelvis Cervical Spine: normal cervical lordosis, cervical muscular tenderness and No cervical spinal tenderness Thoracic/Lumbar Spine: thoracic and lumbar spine normal to inspection and No thoracic spinal tenderness Neuro General: patient alert, patient awake, patient oriented x3, moves all extremities, normal light touch, pain and propioception and no focal motor deficits Extrem Left upper extremity: normal to inspection Other: tenderness over the left clavicle and over the deltoid Results Imaging Abdomen CT scan report/results: report reviewed and image reviewed CT scan - chest: report reviewed and image reviewed CT scan - pelvis: report reviewed and image reviewed Additional studies: CT head and neck- report reviewed and images reviewed Labs 12/09/22 17:15 12/09/22 17:15 Labs: Laboratory Results - last 24 hr 12/09/22 12/09/22 12/09/22 17:15 17:15 21:40 WBC 6.41 RBC 4.77 Hgb 14.7 Hct 41.3 MCV 87 MCH 30.8 MCHC 35.6 RDW 12.2 Plt Count 168 MPV 9.8 Immature Gran % 0.6 Neutrophils % 67.6 Lymphocytes % 19.2 Monocytes % 8.3 Eosinophils % 3.7 Basophils % 0.6 Nucleated RBC % 0.0 Absolute Neutrophils 4.33 Absolute Lymphocytes 1.23 Absolute Monocytes 0.53 Absolute Eosinophils 0.24 Absolute Basophils 0.04 Sodium 137 Potassium 3.5 Chloride 100 Carbon Dioxide 28.7 Anion Gap 8.3 BUN 28 H Creatinine 1.0 Est GFR (CKD-EPI 2020) 77.52 Glucose 115 H Calcium 9.4 Total Bilirubin 0.7 AST 34 ALT 65 H Alkaline Phosphatase 77 Total Protein 7.5 Albumin 4.6 COVID-19 Source Nasal/Nares SARS-CoV-2 (PCR) Negative Last Vital Signs Temp 98.1 F 12/10/22 06:31 Pulse 62 12/10/22 06:31 Resp 16 12/10/22 06:31 BP 148/78 H 12/10/22 06:31 Pulse Ox 95 12/10/22 06:31 Time Spent Time spent with Patient: 40-54 minutes Time was spent: preparing to see the patient(eg.review tests), obtaining and/or reviewing separately otained hiistory, ordering medications,tests, procedures, indepentently interpreting results and counseling the patient
--- NOTE | 2022-12-10 11:06 | W.PM.DS.N ---
Date of service: 12/10/22 Time of Service: 11:06 DS: Diagnosis Discharge Diagnosis (1) Closed head injury with concussion: Status: Acute (2) Hematoma of left parietal scalp: Status: Acute (3) Chest wall contusion: Status: Acute (4) Shoulder pain: Status: Acute Discharge Plan Disposition Patient Disposition: Home Condition: Stable Discharge Details Reason For Visit: Concussion,Scalp hematoma,Chest contusion Admit Date/Time: 12/09/22 22:04 Admit Provider: Lou Torres Attending Provider: Lou Torres Primary Care Provider: Chan Martinez [facility] Course Hospital Course: Mr. Aguilar is a pleasant 77 year old male who suffered a fall. He has a concussion, scalp hematoma. neck pain, headache and shoulder pain. CT scans showed no fractures. His dizziness and Nausea have subsided. He has been able to tolerate a regular diet. PT saw him and he was able to safely get up and ambulate. We will D/C home with concussion precautions. I think he would benefit from Orthopaedic consult for his acute on chronic shoulder pain. He is a [facility] patient so I have asked the patient to ask his PCP down at the [facility] for a referal. Home Meds and New Rx's Prescriptions: Continued aspirin [Aspir-81] 81 MG tablet,delayed release (DR/EC) 81 mg PO DAILY levothyroxine 25 MCG tablet 75 mcg PO DAILY@0600 amlodipine 10 MG tablet 10 mg PO DAILY lisinopril-hydrochlorothiazide 1 EACH tablet 1 tab PO DAILY Rx Instructions: Lisinopril 20mg/HCTZ 25mg tamsulosin 0.4 mg Capsule 0.4 mg PO DAILY Discharge Instructions Instructions: Concussion (GEN), Post Concussion Syndrome (GEN) Additional Instructions: Please take it easy Do not climb ladders Please take Tylenol 1000 mg every 8 hours as needed for pain. May alternate with Ibuprofen 600 mg every 6 hours. Use ice and heat alternating for pain Please go to the ER if you develop: nausea/vomiting Worsening headache Visual changes Stand Alone Forms: Nursing Discharge Form Activity:: Activity as Tolerated Equipment/Supplies:: No Equipment Needed Diet:: As Tolerated Discharge Orders Discharge Orders: Discharge Order (Routine); Ordered 12/10/22 Ordered By: Lou Torres DS: Summary Time Spent with Patient providing and/or coordinating discharge services: Greater than 30 minutes Status at Discharge Functional status at discharge: independent ambulation Overall status at discharge: patient is back to baseline Mental Status: mental status grossly normal Speech and Movement: speech and movement normal Mood: congruent mood Affect: normal affect Exam Psych Mental Status: mental status grossly normal Speech and Movement: speech and movement normal Mood: congruent mood Affect: normal affect DS: Data Vitals/I&O Vitals and I&O: Vital Signs Temperature 98.1 F 12/10/22 06:31 Temperature Source Tympanic 12/10/22 06:31 Pulse 62 12/10/22 06:31 Pulse Rhythm Irregular 12/09/22 22:40 Pulse 79 12/09/22 22:00 Respiratory Rate 16 12/10/22 06:31 Respiratory Effort Normal, Non-Labored 12/09/22 22:40 Respiratory Depth Shallow 12/09/22 22:40 Respiratory Pattern Normal 12/09/22 22:40 Blood Pressure 148/78 H 12/10/22 06:31 Blood Pressure Mean 101 12/09/22 21:46 Blood Pressure Position Sitting 12/09/22 17:21 Pulse Oximetry 95 12/10/22 06:31 Oxygen Delivery Method Room Air 12/10/22 06:31 Oxygen Flow Rate 0 12/10/22 06:31 Pain Level 8 12/10/22 07:25 Intake & Output 12/09/22 12/09/22 12/10/22 11:59 23:59 11:59 Intake Total 100 / 100 2142.5 / 2142.5 Output Total 400 / 400 2550 / 2550 Balance -300 / -300 -407.5 / -407.5 Weight 237 lb 7.005 oz Intake: IV 100 / 100 2142.5 / 2142.5 Output: Urine 400 / 400 2550 / 2550 Other: Urine Color Yellow Yellow Urine Appearance Cloudy Clear Urine Odor Normal Voiding Methods Urinal Urinal Data Completed and Pending Labs on day of discharge: Labs from last 24 hours 12/09/22 12/09/22 12/09/22 21:40 17:15 17:15 WBC 6.41 RBC 4.77 Hgb 14.7 Hct 41.3 MCV 87 MCH 30.8 MCHC 35.6 RDW 12.2 Plt Count 168 MPV 9.8 Immature Gran % 0.6 Neutrophils % 67.6 Lymphocytes % 19.2 Monocytes % 8.3 Eosinophils % 3.7 Basophils % 0.6 Nucleated RBC % 0.0 Absolute Neutrophils 4.33 Absolute Lymphocytes 1.23 Absolute Monocytes 0.53 Absolute Eosinophils 0.24 Absolute Basophils 0.04 Sodium 137 Potassium 3.5 Chloride 100 Carbon Dioxide 28.7 Anion Gap 8.3 BUN 28 H Creatinine 1.0 Est GFR (CKD-EPI 2020) 77.52 Glucose 115 H Calcium 9.4 Total Bilirubin 0.7 AST 34 ALT 65 H Alkaline Phosphatase 77 Total Protein 7.5 Albumin 4.6 COVID-19 Source Nasal/Nares SARS-CoV-2 (PCR) Negative PFSH All Active Problems Shoulder pain (Acute) Closed head injury with concussion (Acute) Hematoma of left parietal scalp (Acute) Chest wall contusion (Acute) Medical History BPH (benign prostatic hyperplasia) HTN (hypertension) Hypercholesterolemia Hypothyroid Social History Smoking/Tobacco Use Status: Never Smoking risk assessment performed?: Yes Alcohol Intake: current Alcohol Intake frequency: a few times a month Drug use: Never Substance use type: does not use Do you feel safe at home: Yes Do you feel safe in your relationship?: Yes Additional Social history: at bedside Time Spent with Patient Time Spent with Patient: <45 minutes Time was spent: obtaining and/or reviewing separately otained hiistory, ordering medications,tests, procedures, indepentently interpreting results and counseling the patient
--- NOTE | 2022-12-10 11:33 | PT.INIE ---
PT Notes Visit Reasons: Concussion,Scalp hematoma,Chest contusion Inpatient Physical Therapy Evaluation Date: December 10, 2022 Referring Doctor: Dr. Lou Torres PT Orders: PT CONSULT: Limited ability, safety eval for home discharge Precautions: Standard Patient Profile/Admitting Diagnosis: Patient is a pleasant 77-year-old male who presented to the ED 12/09/2022 secondary to a fall sustained at home. He was on a ladder approximately 3 feet off the ground working on some home renovations when he fell striking his left shoulder and head with brief loss of consciousness. He doesn't remember the fall itself and his states that he was unconscious for a few seconds. He was noted to have a left lateral scalp hematoma. NO other injuries noted on his chest, abdo/pelvis CT scan.He was nauseous and dizzy in the ER so admission was done for observation. PMHX: PFSH All Active Problems?(Updated 12/10/22 @ 11:02 by Lou Torres MD) Shoulder pain (Acute) Closed head injury with concussion (Acute) Hematoma of left parietal scalp (Acute) Chest wall contusion (Acute) Medical History? BPH (benign prostatic hyperplasia) HTN (hypertension) Hypercholesterolemia Hypothyroid Social History/Home Situation: Lives in a multilevel home with and 1 stair upon entry. Current Functional Limitations: Cervical mobility, bilateral shoulder pain Equipment Owned/DME: None Subjective: Patient states that he is feeling much better today compared to yesterday. Denies any hypersensitivity to light. No nausea. No lightheadedness or dizziness. Does have complaints of left greater than right shoulder pain. Has been receiving physical therapy for both shoulders. Also complaining of cervical pain with active motion particularly left rotation. Does state he has increased headache when he flexes his neck. Objective: General Observation: IV right arm. Very pleasant. No pain behaviors. Sitting up in bed with head of bed 60 degrees. Mental Status: Alert and oriented x3, Ice pack left shoulder, Lidoderm patch left shoulder Pain: 3/10 frontal lobe which increases to 6/10 with cervical flexion. 3/10 left shoulder ROM: Right Upper Extremity: Glenohumeral joint flexion 160 with painful arc. Good initiation. Elbow flexion and extension within normal limits Left Upper Extremity: Glenohumeral joint flexion 150 degrees with pain throughout range. Elbow flexion and extension within normal limits. Right Lower Extremity: Hip, knee and ankle within normal limits Left Lower Extremity: Hip knee and ankle within normal limits Cervical: Rotation left 40 degrees with pain versus 60 degrees right minimal pain. Flexion 25 degrees with pain, extension 20 degrees with pain, sidebending 15 degrees bilaterally. Strength: Right Upper Extremity: 4/5 glenohumeral joint flexion, abduction, internal and external rotation. 5/5 elbow flexion and extension. Good square cutter Left Upper Extremity: 4 -/5 glenohumeral joint flexion and abduction with pain, 4/5 internal rotation and external rotation with mild pain. 5/5 elbow flexion and extension. Good square cutter Right Lower Extremity: 4+/5 throughout Left Lower Extremity: 4+/5 throughout Sensation: Intact light touch bilateral upper and lower extremities] Bed Mobility/Transfers: Patient independent in all bed mobility, transfers sit to stand, stand to sit, bed to chair Gait: Patient ambulated 50 feet with front wheeled walker and contact-guard x1. Ambulated to PT treatment room and perform stair negotiation up and down with use of railing and standby assist. Walked back to his room without assistive device and standby assist. No dizziness, lightheadedness or loss of balance. Balance: Static Sitting: Good Dynamic Sitting: Good Static Standing: good Dynamic Standing: good Special Tests: Mobility Limitations Standardized Measure [facility] AM-PAC 6 clicks Basic Mobility Inpatient Short Form: Raw Score: 0 Standardized Score: 61.14 CMS Score: 0% Informed Consent/Education: Patient instructed in purpose of PT consult and plan of care. Assessment: Patient is a 77year old male referred to physical therapy services with the diagnosis of concussion, chest contusion. Patient presents with clinical signs and symptoms consistent with above diagnosis. Patient independent in all functional mobility, transfers, ambulation and stair negotiation. Safe ambulation with no assistive device. Appropriate from a physical standpoint for discharge. Do recommend discharge from hospital when medically cleared by physician. Patient is assessed as a X low [id number] [] Moderate 78568 [] High 50529 complexity based on the following: History: See above Examination: See above Presentation: Stable Decision Making: Low Goals: Not needed as patient discharged from PT services Plan of Care/Treatment Plan: Discharge to home when cleared medically by physician DISCHARGE RECOMMENDATIONS: X Home with no services [] Home with services [specify] [] Home with outpatient PT [] [] SNF for continued rehabilitation [] [] Licensed Practical Nurse Clinic Nurse Care [] [] SNF versus LTC based on ability to participate and progress [] TREATMENT CODE/TIME: 25 minutes initial evaluation 80147 Thank you for this referral. Chan Farley PT, DPT Disclaimer: This note was created using [employer] voice recognition software. It was reviewed for major content. However, there may be multiple small discrepancies and errors due to the voice recognition aspects of the software.
--- NOTE | 2022-12-10 16:05 | PDOC.CMDIS ---
- If Service Date Differs Date of service: 12/10/22 Time of Service: 16:05 LACE Index Scoring Tool - Questions: Length of Stay (in days): 1 Acuity (Admit via E.D.?): Yes E.D. Visits: 2 - Answers: Total Score: 6 Risk of Readmission: Low Risk Care Management Discharge Reason for Hospitalization: Concussion, Scalp hematoma, Chest contusion. Discharge Plan: Michael is discharged home with no services. He will follow up with his PCP and plan of care as instructed. He is driven home via private vehicle by family. Patient/Family Education Needs: Review of discharge instructions including medications and limitations, and discussion of Ask Me Three.
== END 2022-12-10 14:50 | disposition home or self-care (01) ==
LOC: ER 21:42 → MS 12-10 11:07
PROVIDERS: Admitting Provider Surgery; Emergency Provider Emergency Medicine; PCP Internal Medicine; Visit Provider Surgery
DX: S06.0XAA Concussion with loss of consciousness status unknown, initial encounter (principal); S00.03XA Contusion of scalp, initial encounter; S20.212A Contusion of left front wall of thorax, initial encounter; M25.512 Pain in left shoulder; Z20.822 Contact with and (suspected) exposure to COVID-19; W11.XXXA Fall on and from ladder, initial encounter; M54.2 Cervicalgia; M54.9 Dorsalgia, unspecified; R42 Dizziness and giddiness; R11.0 Nausea; R51.9 Headache, unspecified; N40.0 Benign prostatic hyperplasia without lower urinary tract symptoms; I10 Essential (primary) hypertension; E78.00 Pure hypercholesterolemia, unspecified; E03.9 Hypothyroidism, unspecified
CPT/HCPCS: 36415; 74177; 80053; 87635; 93005; 96361; 96365; 96374; 96375; 97161; 99222; 99285; 70450; 71260; 72125; 85025; 93010; G0378; J0131; J2270; J2405; J3490

== ENCOUNTER 2023-01-04 10:57 | Outpatient (CLI) | payer OTHER, SELFPAY ==
--- NOTE | 2023-01-04 10:44 | DI.RAD_ITS ---
Exam(s) XR SHOULDER LT COMPLETE 2+V XR CLAVICLE LT EXAM: XR SHOULDER LT COMPLETE 2+V CLINICAL HISTORY: Left shoulder pain. TECHNIQUE: 2D digital imaging was performed. Three views. COMPARISON: CR XR CLAVICLE LT from 01/04/2023 FINDINGS: BONES: No acute fracture is present. No bony destructive lesion is seen.Spurring from tip of acromion . Spurring and subchondral cysts at greater and lesser tuberosities. JOINTS: No dislocation present. SOFT TISSUE: Normal. IMPRESSION: Degenerative changes. DATA REPOSITORY: RADIATION DOSE DELIVERED:
== END 2023-01-04 10:58 | disposition home or self-care (01) ==
LOC: DIORS 10:57
PROVIDERS: PCP Internal Medicine; Visit Provider Student in an Organized Health Care Education/Training Program
DX: M25.512 Pain in left shoulder (principal); M25.812 Other specified joint disorders, left shoulder
CPT/HCPCS: 73000; 73030

== ENCOUNTER 2023-12-13 03:20 | Inpatient (IN) | payer OTHER, SELFPAY ==
[2023-12-13] VITALS (88 sets, daily range): BP systolic 113–239; BP diastolic 48–180; PULSE 55–100; RESP 3–28; TEMP 36–37.6; O2SAT 90–100
--- NOTE | 2023-12-13 03:15 | RT.EKG_ITS ---
APPROVED REPORT Exam: Resting ECG Reason for Exam: chest pain Patient Location: E HR:72 bpm ECG Measurements Heart Rate 72 AXIS SC 200 P 43 QRSd 91 QRS 64 QT 440 T 64 QTc 472 Conclusion Sinus rhythm...normal P axis, V-rate 60- 99 Atrial premature complexes...SV complexes w/ short R-R intvls Probable left atrial enlargement...P >50mS, <-0.10mV V1 sinus rhtyhm, normal axis, normal interval, PAC
--- NOTE | 2023-12-13 03:30 | DI.CT_ITS ---
Exam(s) CT THORAX ABD/PEL CTA EXAM: CT THORAX ABD/PEL CTA CLINICAL HISTORY: chest pain to back and abd, concern for aorta. TECHNIQUE: Imaging Protocol: Axial CT angiography was performed with multi-slice acquisition and m ulti-planar and/or 3D reconstructions. CONTRAST MATERIAL: Intravenous: Omnipaque 350 contrast volume:100 mL Oral: No COMPARISON: CT CT CHEST/ABD/PEL W from 12/09/2022 FINDINGS: CHEST: Tracheobronchial tree: Patent where visualized. Pulmonary parenchyma: No consolidation or dominant measurable mass. No architectural distortion. Calc ified granuloma are present. Pulmonary Arteries: Due to the timing of the bolus peripheral pulmonary artery evaluation is suboptim al. No large central pulmonary embolus is present. Mediastinum and Huong: No dominant adenopathy or fluid collection. The esophagus is unremarkable. Visualized thyroid: Unremarkable. Pleura: No effusion or pneumothorax. Heart: The heart is not dilated. Coronary artery calcification and/or stents are present. No pericar dial effusion. Aorta: Thoracic aorta non-dilated. There is no evidence of dissection. Atherosclerotic calcification is present. Soft Tissues: Unremarkable. Bones: Within normal limits for the patient's age. ABDOMEN AND PELVIS: Abdomen: Celiac axis/mesenteric arteries: No evidence of occlusion or significant stenosis. Mild atherosclero tic calcification is present. Renal Arteries: No evidence of occlusion or significant stenosis. Mild atherosclerotic calcification is seen at the origins of the renal arteries. Aorta: No evidence of occlusion or significant stenosis. No aneurysm or dissection. There is ather osclerotic calcification present. Pelvis: Iliac Arteries: No evidence of occlusion or significant stenosis. Atherosclerotic calcification is present. Common Femoral Arteries: No evidence of occlusion or significant stenosis. Atherosclerotic calcific ation is present. ABDOMEN: Liver: Normal density. No measurable mass. Gallbladder and Biliary Tract: Cholelithiasis. No biliary ductal dilatation. Pancreas: Normal density, no abnormal calcifications or inflammatory process. Spleen: Normal. Adrenals: No masses seen. Kidneys: Normal size, contour and axis. No radiodense stones or obstructive uropathy. There is a 1 cm hypodensity in the anterior aspect of the left kidney. Bowel: There is diverticulosis seen in the colon but no evidence of acute diverticulitis. There is n o evidence of bowel obstruction or bowel wall thickening. The stomach is incompletely distended limi ting evaluation. No evidence of appendicitis. Peritoneal Cavity: There is a small amount of perisplenic and perihepatic ascites. There is a small amount of free fluid in the pelvis. No free air. Lymph Nodes: Within normal limits. Bones: Within normal limits for the patient's age. Soft Tissues: There are bilateral fat containing inguinal hernias. PELVIS: Bladder: Symmetric distention, no gross wall thickening. Reproductive Organs: The prostate gland is enlarged. Lymph Nodes: Within normal limits. Bones: Within normal limits for the patient's age. IMPRESSION: 1. No evidence of aortic dissection or aneurysm. 2. Cholelithiasis. No biliary ductal dilatation. 3. Colonic diverticulosis without evidence of acute diverticulitis. 4. Indeterminate 1 cm left renal lesion. Further evaluation with nonemergent MRI of the kidneys shou ld be considered. It does not meet the criteria for simple cyst. Unexpected findings RADIATION DOSE DELIVERED: Total DLP DATA REPOSITORY: All CT scans at this facility are submitted to the National Radiology Data Registry (NRDR) Dose Index Registry (DIR) with the [employer] (ACR). RADIATION OPTIMIZATION: All CT scans at this facility use at least one of these dose optimization te chniques: automated exposure control; mA and/or kV adjustment per patient size (includes targeted exa ms where dose is matched to clinical indication); or iterative reconstruction.
--- NOTE | 2023-12-13 03:37 | ED.GENADUL_ITS ---
Discharge Plan Discharge Details Chief Complaint: Chest Pain Primary Care Provider: Chan Martinez ED Provider: Magno Christensen Home Meds and New Rx's Prescriptions: No Action aspirin [Aspir-81] 81 MG tablet,delayed release (DR/EC) 81 mg PO DAILY ezetimibe 10 mg tablet 10 mg PO DAILY finasteride 5 mg tablet 5 mg PO DAILY tadalafil 20 mg tablet 20 mg PO DAILY PRN Rx Instructions: administer approximately 30min before sexual activity; do not use more than 1 dose per 24hrs levothyroxine 25 MCG tablet 75 mcg PO DAILY@0600 amlodipine 10 MG tablet 10 mg PO DAILY lisinopril-hydrochlorothiazide 1 EACH tablet 1 tab PO DAILY Rx Instructions: Lisinopril 20mg/HCTZ 25mg tamsulosin [Flomax] 0.4 mg capsule 0.4 mg PO QHS HPI General Date/Time Provider Initiated Documentation: 12/13/23 03:30 . HPI Narrative: 78-year-old male history of hypertension presents with acute onset back discomfort that began around 2 AM, and epigastrium. Related Data Home Medications Medication Instructions Recorded Confirmed amlodipine 10 mg tablet 10 mg PO DAILY 11/18/13 12/13/23 levothyroxine 25 mcg tablet 75 mcg PO DAILY@0600 11/18/13 12/13/23 lisinopril 20 1 tab PO DAILY 11/18/13 12/13/23 mg-hydrochlorothiazide 25 mg tablet aspirin 81 mg tablet,delayed 81 mg PO DAILY 10/10/16 12/13/23 release (Aspir-) ezetimibe 10 mg tablet 10 mg PO DAILY 12/27/22 12/13/23 finasteride 5 mg tablet 5 mg PO DAILY 12/27/22 12/13/23 tadalafil 20 mg tablet 20 mg PO DAILY PRN 12/27/22 12/13/23 tamsulosin 0.4 mg capsule (Flomax) 0.4 mg PO QHS 12/13/23 12/13/23 Allergies Allergy/AdvReac Type Severity Reaction Status Date / Time [id number] Reductase AdvReac Unknown Other (See Unverified 12/13/23 03:29 Inhibitor Comment) General Stated Complaint: Chest Pain SUE: 2 Review of Systems Narrative: Review of Systems Constitutional: negative Eyes: negative ENT: negative Cardiovascular: Chest pain Respiratory: negative Gastrointestinal: Abdominal pain : negative Musculoskeletal: negative Skin: negative Neurologic: negative Psych: negative Exam Narrative Exam Narrative: Physical Examination General: alert, awake, cooperative, resting comfortably, no acute distress HEENT: normocephalic, atraumatic; PERRL, EOM intact, conjunctiva normal; no nasal discharge; moist mucous membranes, oral and pharyngeal mucosa normal, tolerating secretions Neck: supple, trachea midline; full ROM Chest: normal to inspection Respiratory: normal respiratory effort, speaking in full sentences, clear to auscultation, no wheezing, rales or rhonchi Cardiac: regular rate, regular rhythm, S1S2 intact, no murmurs rubs or gallops; slightly decreased left radial pulse compared to normal right radial pulse GI: abdomen soft, non-tender, non-distended; no palpable mass or hepatosplenomegaly Skin: no lesions, rashes or trauma appreciated Neuro: AAOx3, normal speech, moving all extremities Extremities: Warm well-perfused Psych: Appropriate mood and affect Course Vital Signs Vital signs: Vital Signs Temperature 36.8 C 12/13/23 03:24 Pulse 85 12/13/23 03:24 Respiratory Rate 20 12/13/23 03:24 Blood Pressure 239/133 H 12/13/23 03:24 Pulse Oximetry 98 12/13/23 03:24 Temperature 36.8 C 12/13/23 03:24 Temperature Source Temporal Artery Scan 12/13/23 03:24 Pulse 85 12/13/23 03:24 Pulse 85 12/13/23 03:25 Respiratory Rate 19 12/13/23 03:30 Respiratory Effort Normal, Non-Labored 12/13/23 03:26 Blood Pressure 239/133 H 12/13/23 03:24 Blood Pressure Position Supine 12/13/23 03:24 Pulse Oximetry 98 12/13/23 03:24 Pain Level 9 12/13/23 03:24 Medical Decision Making 78-year-old male history of hypertension presents with acute onset back pain radiating to his chest and abdomen beginning around 2 AM, noted to be hypertensive on arrival. Slightly diminished left radial pulse compared to right abdomen soft, nonperitoneal. Nausea without vomiting. Must consider aortic dissection versus aortic aneurysm versus ACS lower suspicion for PE, must also consider biliary pathology such as biliary colic versus early cholecystitis v gastritis 4: 45 patient resting comfortably. No evidence of aortic dissection on CTA chest abdomen pelvis. Consider component of gastritis given location in the epigastrium. GI cocktail added. Patient loaded with aspirin. First troponin negative pending second. 7: 03 pain improving, pain in his back has completely resolved, still with epig astric discomfort. No vomiting. No respiratory distress. Blood pressure has normalized. Second troponin negative labs unremarkable. Per family patient had similar episode a couple years ago with inconclusive testing, self resolution of symptoms. 7: 38 will have radiologist review imaging given patient's persistent epigastric discomfort, consider gastritis versus duodenitis versus biliary colic versus early cholecystitis Quality:SDOH Health Related Social Needs: No Data to Display PFSH All Active Problems (Updated 03/01/23 @ 11:21 by PARK Espino) Arthritis of right shoulder region (Acute) Left rotator cuff tear (Acute ~12/09/22) Shoulder pain (Acute) Closed head injury with concussion (Acute) Hematoma of left parietal scalp (Acute) Chest wall contusion (Acute) Medical History BPH (benign prostatic hyperplasia) HTN (hypertension) Hypercholesterolemia Hypothyroid Social History Smoking/Tobacco Use Status: Never Smoking risk assessment performed?: Yes Alcohol Intake: current Alcohol Intake frequency: a few times a month Drug use: Never Substance use type: does not use Current gender identity: male Do you feel safe at home: Yes Do you feel safe in your relationship?: Yes Additional Social history: at bedside
[2023-12-13 03:44] LABS: Abs Immature Grans 0.04 10^3/uL (0.0-0.06); Absolute Basophil Count 0.05 10^3/uL (0.0-0.2); Absolute Eosinophil Count 0.28 10^3/uL (0.0-0.7); Absolute Monocyte Count 0.64 10^3/uL (0.1-0.8); Absolute Neutrophil Count 3.02 10^3/uL (1.2-6.7); Basophils % 0.9; Eosinophils % 4.8; HCT 43.4 % (40.0-50.0); HGB 15.3 g/dL (13.5-17.5); Immature Grans % 0.7; Lymphocytes % 30.9; MCH 30.8 pg (27.0-33.0); MCHC 35.3 % (32.0-36.0); MCV 88 fL (80-95); MPV 9.7 fL (8.0-11.0); Neutrophils % 51.7; Platelet Count 179 10^3/uL (130-400); RBC 4.96 10^6/uL (4.36-5.78); RDW 12.2 % (11.8-14.1); RDW-SD 39.5 fL; WBC 5.83 10^3/uL (4.4-10.8)
[2023-12-13] MEDS: Normal Saline Flush 10 ML SYR IVP ×2 (03:44→20:17)
[2023-12-13] MEDS: Omnipaque 350 MG/ML 100 ML BTL IJ (03:45)
[2023-12-13] MEDS: Normal Saline - Diluent 50 ML VIAL IJ (03:46)
[2023-12-13] MEDS: fentaNYL 100 MCG/2 ML VIAL 50 MCG IVP (03:50)
[2023-12-13] MEDS: Ondansetron 4 MG/2 ML VIAL IVP ×2 (03:52→13:10)
[2023-12-13 04:00] LABS: Lipase 40 U/L (16-77)
[2023-12-13 04:01] LABS: PTT Activated 26.7 sec (23.6-32.8); Prothrombin Time 9.7 sec (9.1-11.1)
[2023-12-13 04:10] LABS: ALT 39 U/L (16-63); AST 22 U/L (15-37); Albumin 4.1 g/dL (3.4-5.0); Alkaline Phosphatase 87 U/L (46-116); Anion Gap 10.2 mmol/L (3-11); BUN 22 mg/dL (7-18); Bilirubin, Total 0.7 mg/dL (0.2-1.0); CO2 28.8 mmol/L (21.0-32.0); CREATININE 1.1 mg/dL (0.70-1.30); Calcium 9.6 mg/dL (8.5-10.1); Chloride 102 mmol/L (98-107); Estimated GFR 68.71 (mL/min/1.73m2); Glucose 129 mg/dL (74-106); NT-proBNP 74 pg/mL (<300); Potassium 3.3 mmol/L (3.5-5.1); Sodium 141 mmol/L (136-145); Total Protein 7.5 g/dL (6.4-8.2); Troponin I < 50 ng/L (< or =60)
--- NOTE | 2023-12-13 04:35 | DI.VRAD_ITS ---
PROCEDURE INFORMATION: Exam: CTA Chest With Contrast CTA Abdomen and Pelvis With Contrast Exam date and time: 12/13/2023 3:48 AM Age: 78 years old Clinical indication: Abdominal pain; Generalized; Patient HX: Chest pain radiating into back and abd, concern for aorta TECHNIQUE: Imaging protocol: Computed tomographic angiography of the chest with contrast. Exam focused on the arteries. Computed tomographic angiography of the abdomen and pelvis with contrast. Exam focused on the arteries. 3D rendering (Not supervised by radiologist): MIP and/or 3D reconstructed images were created by the technologist. Radiation optimization: All CT scans at this facility use at least one of these dose optimization techniques: automated exposure control; mA and/or kV adjustment per patient size (includes targeted exams where dose is matched to clinical indication); or iterative reconstruction. Contrast material: OMNIPAUE 350; Contrast volume: 100 ml; Contrast route: INTRAVENOUS (IV); COMPARISON: CT CHEST/ABD/PEL W 12/09/2022 6:58 PM FINDINGS: VASCULATURE: Pulmonary arteries: No acute pulmonary emboli within the visualized main, lobar, and proximal segmental pulmonary arteries. Evaluation of the subsegmental pulmonary arteries is nondiagnostic, secondary to lack of satisfactory contrast opacification. Aorta: Atherosclerotic disease of the thoracic aorta, without aneurysm or dissection. Atherosclerotic disease of the abdominal aorta and iliac arteries, without aneurysm or dissection. Celiac trunk and mesenteric arteries: No occlusion or significant stenosis. Renal arteries: No occlusion or significant stenosis. Right iliac arteries: No occlusion or significant stenosis. Left iliac arteries: No occlusion or significant stenosis. CHEST: Lungs: Unremarkable. No consolidation. No masses. Pleural spaces: Unremarkable. No pneumothorax. No pleural effusion. Heart: Unremarkable. No cardiomegaly. No pericardial effusion. Coronary arteries: Mild three-vessel coronary artery atherosclerotic disease. ABDOMEN AND PELVIS: Liver: No mass. Gallbladder and bile ducts: Cholelithiasis. Pancreas: Unremarkable. No mass. No ductal dilation. Spleen: Unremarkable. No splenomegaly. Adrenal glands: Unremarkable. No mass. Kidneys and ureters: 10 mm left anterior renal midpole partially exophytic indeterminate hypodense nodule (series 7, image 850). Stomach and bowel: Colonic diverticulosis. Appendix: Appendix normal. Intraperitoneal space: Small amount of intraperitoneal free fluid. Urinary bladder: Unremarkable. No mass. Reproductive: Prostate gland is enlarged, measuring approximately 4.9 cm in AP diameter. Lymph nodes: Unremarkable. No enlarged lymph nodes. Bones/joints: Degenerative changes of the hips and sacroiliac joints. Multilevel lumbar spine degenerative disc space narrowing and osteophyte formation, with associated central canal and neural foraminal narrowing at the L2-L3 through L5-S1 levels. Soft tissues: Unremarkable. IMPRESSION: 1. 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 2. 10 mm left anterior renal midpole partially exophytic indeterminate hypodense nodule (series 7, image 850). Dictated and Authenticated by: Taj Spencer MD. Ordering:CHRIS Kiran MD
[2023-12-13] MEDS: ACETAMINOPHEN 1,000 MG/100 ML BTL 400 MG IVPB (04:48)
[2023-12-13] MEDS: hydrALAZINE 20 MG/ML VIAL 10 MG IVP (04:49)
[2023-12-13] MEDS: Famotidine 20 MG/2 ML VIAL IVP (04:50)
[2023-12-13] MEDS: Aspirin 325 MG TAB PO (04:52)
[2023-12-13] MEDS: HYDROmorphone 2 MG/ML SYR 0.5 MG IVP (06:00)
[2023-12-13 06:50] LABS: Troponin I < 50 ng/L (< or =60)
[2023-12-13] MEDS: LORazepam 2 MG/ML VIAL 0.5 MG IVP (07:16)
[2023-12-13 08:12] LABS: Lactate 1.2 mmol/L (0.6-1.4)
--- NOTE | 2023-12-13 09:30 | RT.EKG_ITS ---
APPROVED REPORT Exam: Resting ECG Reason for Exam: cardiac eval Patient Location: E HR:80 bpm ECG Measurements Heart Rate 80 AXIS OR 190 P 74 QRSd 92 QRS 69 QT 363 T 103 QTc 407 Conclusion Sinus rhythm...normal P axis, V-rate 60- 99 Atrial premature complexes...SV complexes w/ short R-R intvls Probable inferior infarct, age indeterminate...Q>35mS, T neg, II III aVF Nonspecific T abnormalities, lateral leads...T <-0.10mV, I aVL V5 V6
--- NOTE | 2023-12-13 09:46 | W.EDPROG ---
Date of service: 12/13/23 Time of Service: 10:07 Medical Decision Making Care signed out by Dr. Chritsensen with plan to reassess patient, delta troponin and repeat EKG. CT of the abdomen pelvis was interpreted by radiology:1. No evidence of aortic dissection or aneurysm. 2. Cholelithiasis. No biliary ductal dilatation. 3. Colonic diverticulosis without evidence of acute diverticulitis. 4. Indeterminate 1 cm left renal lesion. Further evaluation with nonemergent MRI of the kidneys should be considered. It does not meet the criteria for simple cyst. A bedside [id number] ultrasound of the right upper quadrant was performed by me: No signs of acute cholecystitis, no free fluid in the right upper quadrant. Repeat EKG was reviewed and interpreted by me: Please report, sinus rhythm, atrial premature complexes, subtle ST depression to, V5 V6 which is a subtle change from prior EKG earlier today. Patient has received acetaminophen IV, Dilaudid IV, fentanyl IV, Pepcid IV, and aspirin. He continues to have significant although improved pain. Unclear etiology for pain at this point. ACS remains on the differential. Plan to repeat troponin. Given HEART score, ongoing pain and EKG changes, plan to hospitalize patient for further diagnostic workup. --Will give nitroglycerin sublingual. 1000 --I spoke with Dr. Conrad, on-call hospitalist, discussed ED presentation course, he will admit the patient. Lab Data Lab results reviewed: Yes I reviewed the patient's lab results. Labs: Laboratory Tests Range/Units 12/13/23 12/13/23 12/13/23 03:32 06:25 08:07 WBC (4.4-10.8) 10^3/uL 5.83 RBC (4.36-5.78) 10^6/uL 4.96 Hgb (13.5-17.5) g/dL 15.3 Hct (40.0-50.0) % 43.4 MCV (80-95) fL 88 MCH (27.0-33.0) pg 30.8 MCHC (32.0-36.0) % 35.3 RDW (11.8-14.1) % 12.2 Plt Count (130-400) 10^3/uL 179 MPV (8.0-11.0) fL 9.7 Immature Gran % 0.7 Neutrophils % 51.7 Lymphocytes % 30.9 Monocytes % 11.0 Eosinophils % 4.8 Basophils % 0.9 Nucleated RBC % (0.0-0.3) % 0.0 Absolute Neutrophils (1.2-6.7) 10^3/uL 3.02 Absolute Lymphocytes (1.2-3.4) 10^3/uL 1.80 Absolute Monocytes (0.1-0.8) 10^3/uL 0.64 Absolute Eosinophils (0.0-0.7) 10^3/uL 0.28 Absolute Basophils (0.0-0.2) 10^3/uL 0.05 PT (9.1-11.1) sec 9.7 INR (0.9-1.1) 1.0 APTT (23.6-32.8) sec 26.7 VBG Lactate (0.6-1.4) mmol/L 1.2 Sodium (136-145) mmol/L 141 Potassium (3.5-5.1) mmol/L 3.3 L Chloride (98-107) mmol/L 102 Carbon Dioxide (21.0-32.0) mmol/L 28.8 Anion Gap (3-11) mmol/L 10.2 BUN (7-18) mg/dL 22 H Creatinine (0.70-1.30) mg/dL 1.1 Est GFR (CKD-EPI 2020) (mL/min/1.73m2) 68.71 Glucose (74-106) mg/dL 129 H Calcium (8.5-10.1) mg/dL 9.6 Total Bilirubin (0.2-1.0) mg/dL 0.7 AST (15-37) U/L 22 ALT (16-63) U/L 39 Alkaline Phosphatase (46-116) U/L 87 Troponin I (< or =60) ng/L < 50 < 50 NT-Pro-B Natriuret Pep (<300) pg/mL 74 Total Protein (6.4-8.2) g/dL 7.5 Albumin (3.4-5.0) g/dL 4.1 Lipase (16-77) U/L 40 Patient ABO/Rh O Positive Antibody Screen NEGATIVE Quality:SDOH Health Related Social Needs: No Data to Display Sign Out Sign Out Data: Sign Out Comment: epigastric/chest pain radiating to back; negative CTA chest abd pelvis; consider gastritis v duodenitis v biliary; cardiac workup negative; consider review of images with daytime radiology given persistent discomfort Last updated by Magno Christensen MD at 12/13/23 07:41 Discharge Plan Disposition Patient Disposition: Admit to [facility] Condition: Serious Discharge Details Chief Complaint: Chest Pain Clinical Impression: Chest pain Primary Care Provider: Chan Martinez ED Provider: Paul Mackey Home Meds and New Rx's Prescriptions: No Action aspirin [Aspir-81] 81 MG tablet,delayed release (DR/EC) 81 mg PO DAILY ezetimibe 10 mg tablet 10 mg PO DAILY finasteride 5 mg tablet 5 mg PO DAILY tadalafil 20 mg tablet 20 mg PO DAILY PRN Rx Instructions: administer approximately 30min before sexual activity; do not use more than 1 dose per 24hrs levothyroxine 25 MCG tablet 75 mcg PO DAILY@0600 amlodipine 10 MG tablet 10 mg PO DAILY lisinopril-hydrochlorothiazide 1 EACH tablet 1 tab PO DAILY Rx Instructions: Lisinopril 20mg/HCTZ 25mg tamsulosin [Flomax] 0.4 mg capsule 0.4 mg PO QHS
[2023-12-13] MEDS: nitroGLYcerin 0.4 MG TAB SL ×4 (10:16→12:07)
[2023-12-13 10:31] LABS: Troponin I < 50 ng/L (< or =60)
--- NOTE | 2023-12-13 12:15 | RT.EKG_ITS ---
APPROVED REPORT Exam: Resting ECG Reason for Exam: chest pain Patient Location: I HR:79 bpm ECG Measurements Heart Rate 79 AXIS VA 196 P 63 QRSd 98 QRS 69 QT 422 T 60 QTc 484 Conclusion Sinus rhythm...normal P axis, V-rate 50- 99 Atrial premature complexes...SV complexes w/ short R-R intvls Abnormal inferior Q waves...Qs add to 80 mS in II III aVF Borderline T wave abnormalities...T/QRS ratio < 1/20 or flat T Borderline prolonged QT interval...QTc >475mS
[2023-12-13] MEDS: fentaNYL 100 MCG/2 ML VIAL 25 MCG IVP (12:32)
--- NOTE | 2023-12-13 12:39 | NUR.NOTE ---
Nursing Note: Patient complained of 7/10 substernal chest pain radiating to the back associated with nausea. This RN administered nitroglycerin q5m as directed. ENGRAVER JEWELRY Katiuska Dong was notified. The third dose wass held due to decrease is blood pressure. Patient complained of worsening pain with no relief. EKG was performed and fentanyl was given as directed. Patient reported relief with fentanyl. Katiuska Dong was at bedside and remains at bedside.
--- NOTE | 2023-12-13 12:49 | HPE_ITS ---
Date of service: 12/13/23 Time of Service: 10:30 Assessment and Plan Assessment and plan (1) Chest pain: Status: Acute Assessment and plan: EKG in ED showed ST changes in V5-6, less in EKG repeated on the floor Telemetry Trend troponins Nitroglycerin PRN (2) Epigastric abdominal pain: Status: Acute Assessment and plan: Reproducible pain on palpation with guarding most likely conveying a GI origin GI cocktail pepcid Carafate morphine PRN (3) Nausea: Status: Acute Assessment and plan: Ondansetron PRN (4) On deep vein thrombosis (DVT) prophylaxis: Status: Acute Assessment and plan: Lovenox sc (5) Discharge planning issues: Status: Acute Assessment and plan: CM to F/u History of Present Illness History of Present Illness Chief Complaint: Chest pain Narrative: This 78 years old male patient with a past medical history of hypertension, presented to the ED at [facility] today for evaluation of back pain radiating to his chest and abdomen beginning around 2 PM. On arrival the patient was noted to be hypertensive with slightly diminished left radial pulse compared to the right. The patient abdomen was soft without signs and symptoms of acute peritonitis. A CTA of the chest, abdomen and pelvis was completed without evidence of aortic dissection or aneurysm but showing atherosclerotic disease of the thoracoabdominal aorta and iliac arteries, without bowel obstruction or abdominal wall thickening. The CT also showed evidence of cholelithiasis without biliary dilation. Colonic diverticulosis without acute diverticulitis was observed as well as a 1 cm left renal lesion with further evaluation on a nonemergent MRI suggested. POCUS of the right upper abdominal quadrant performed in the ED showed no evidence of acute cholecystitis and no free fluid. . EKG in the ED showed sinus rhythm with PAC and subtle ST depression to V5 V6 which represented an acute change from the prior EKG completed earlier as per the ED provider interpretation. In the ED the patient was treated with IV Dilaudid, IV fentanyl, IV Pepcid, aspirin and sublingual nitroglycerin. The patient continued to have significant pain despite improvement. Troponins in the ED were negative. The ED provider mentioned that given the heart score, ongoing pain and EKG changes hospitalization was warranted for further diagnostic workup. The hospitalist was consulted and the patient was admitted to the medical surgical floor inpatient with telemetry with the plan to complete a stress test on the following day. When seen on the floor, the patient reported reproducible epigastric pain, guarding on right upper quadrant approach palpation, nausea. The patient denies change in vision, difficulty swallowing, vomiting, hematemesis, constipation, diarrhea, hematochezia or dysuria. Nitroglycerin sublingual was administered on arrival to the floor and SBP around 140 went to 110's while the patient reported increased epigastric pain. EKG was completed and no acute changes were noted. Review of Systems All systems reviewed & are unremarkable except as noted in HPI and below Cardiovascular Cardiovascular: Reports chest pain (more epigastric, no furhter radiation to back ) Gastrointestinal Gastrointestinal: Reports abdominal pain (epigastric ,) [facility] All Active Problems (Updated 12/13/23 @ 13:16 by Katiuska Dong APRN) Nausea (Acute) Epigastric abdominal pain (Acute) Discharge planning issues (Acute) On deep vein thrombosis (DVT) prophylaxis (Acute) Chest pain (Acute) Arthritis of right shoulder region (Acute) Left rotator cuff tear (Acute ~12/09/22) Shoulder pain (Acute) Closed head injury with concussion (Acute) Hematoma of left parietal scalp (Acute) Chest wall contusion (Acute) Medical History BPH (benign prostatic hyperplasia) HTN (hypertension) Hypercholesterolemia Hypothyroid Social History Smoking/Tobacco Use Status: Never Smoking risk assessment performed?: Yes Alcohol Intake: current Alcohol Intake frequency: a few times a month Drug use: Never Substance use type: does not use Housing: house Current gender identity: male Do you feel safe at home: Yes Do you feel safe in your relationship?: Yes Additional Social history: at bedside Meds Allergies and Home Medications Allergies Allergy/AdvReac Type Severity Reaction Status Date / Time [id number] Reductase AdvReac Unknown Other (See Unverified 12/13/23 03:29 Inhibitor Comment) Home Medications Medication Instructions Recorded Confirmed Type amlodipine 10 mg tablet 10 mg PO DAILY 11/18/13 12/13/23 History levothyroxine 25 mcg tablet 75 mcg PO DAILY@0600 11/18/13 12/13/23 History lisinopril 20 1 tab PO DAILY 11/18/13 12/13/23 History mg-hydrochlorothiazide 25 mg tablet aspirin 81 mg tablet,delayed 81 mg PO DAILY 10/10/16 12/13/23 History release (Aspir-) ezetimibe 10 mg tablet 10 mg PO DAILY 12/27/22 12/13/23 History finasteride 5 mg tablet 5 mg PO DAILY 12/27/22 12/13/23 History tadalafil 20 mg tablet 20 mg PO DAILY PRN 12/27/22 12/13/23 History tamsulosin 0.4 mg capsule (Flomax) 0.4 mg PO QHS 12/13/23 12/13/23 History Exam Narrative Exam Narrative: Constitutional The patient is lying in bed uncomfortable but cooperative during the intervie, spouse at bedside. The patient an obese body habitus HENMT: Facial structures with normal appearance Eyes: Well aligned Neuro:alert and oriented to self, person, place., time and situation. No neurological focal deficit Chest:Chest is symmetrical and normal appearance Resp: clear lung bilaterally Cardio: Tele: SR ,HR 79 S1, S2, no murmur, capillary refill<3 sec., bilateral radial and dorsalis pedis pulses are positive GI: Abdomen is not distended, soft w RUQ temderness with epigastric pain w/o radiation to the back, bowel sounds are present : Negative Costovertebral angle tenderness Back/spine/Pelvis: No back tenderness, normal alignment Integumentary: No skin lesions or rash Extremities: strength 5/5 to bilateral lower and upper extremities Psych: RASS 0, congruent mood and normal affect. Results Labs 12/13/23 03:32 12/13/23 03:32 Labs: Laboratory Results - last 24 hr 12/13/23 12/13/23 12/13/23 03:32 06:25 08:07 WBC 5.83 RBC 4.96 Hgb 15.3 Hct 43.4 MCV 88 MCH 30.8 MCHC 35.3 RDW 12.2 Plt Count 179 MPV 9.7 Immature Gran % 0.7 Neutrophils % 51.7 Lymphocytes % 30.9 Monocytes % 11.0 Eosinophils % 4.8 Basophils % 0.9 Nucleated RBC % 0.0 Absolute Neutrophils 3.02 Absolute Lymphocytes 1.80 Absolute Monocytes 0.64 Absolute Eosinophils 0.28 Absolute Basophils 0.05 PT 9.7 INR 1.0 APTT 26.7 VBG Lactate 1.2 Sodium 141 Potassium 3.3 L Chloride 102 Carbon Dioxide 28.8 Anion Gap 10.2 BUN 22 H Creatinine 1.1 Est GFR (CKD-EPI 2020) 68.71 Glucose 129 H Calcium 9.6 Total Bilirubin 0.7 AST 22 ALT 39 Alkaline Phosphatase 87 Troponin I < 50 < 50 NT-Pro-B Natriuret Pep 74 Total Protein 7.5 Albumin 4.1 Lipase 40 Patient ABO/Rh O Positive Antibody Screen NEGATIVE 12/13/23 09:45 WBC RBC Hgb Hct MCV MCH MCHC RDW Plt Count MPV Immature Gran % Neutrophils % Lymphocytes % Monocytes % Eosinophils % Basophils % Nucleated RBC % Absolute Neutrophils Absolute Lymphocytes Absolute Monocytes Absolute Eosinophils Absolute Basophils PT INR APTT VBG Lactate Sodium Potassium Chloride Carbon Dioxide Anion Gap BUN Creatinine Est GFR (CKD-EPI 2020) Glucose Calcium Total Bilirubin AST ALT Alkaline Phosphatase Troponin I < 50 NT-Pro-B Natriuret Pep Total Protein Albumin Lipase Patient ABO/Rh Antibody Screen Last Vital Signs Temp 36 C L 12/13/23 11:46 Pulse 93 H 12/13/23 12:10 Resp 16 12/13/23 12:10 BP 113/74 12/13/23 12:10 Pulse Ox 95 12/13/23 12:10 Time Spent Time spent with Patient: >75 minutes Time was spent: preparing to see the patient(eg.review tests), obtaining and/or reviewing separately otained hiistory, ordering medications,tests, procedures, referring, communicating with other health manager intensive care unit, indepentently interpreting results, counseling the patient and care coordination
[2023-12-13 12:53] LABS: Lab Add On Test DONE
[2023-12-13 13:06] LABS: ALT 40 U/L (16-63); AST 25 U/L (15-37); Albumin 3.8 g/dL (3.4-5.0); Alkaline Phosphatase 70 U/L (46-116); Bilirubin, Direct 0.1 mg/dL (0.0-0.2); Bilirubin, Total 0.6 mg/dL (0.2-1.0); Total Protein 7.2 g/dL (6.4-8.2)
[2023-12-13] MEDS: Magic Mouthwash 119 ML BTL 10 ML MM ×2 (13:08→18:41)
[2023-12-13] MEDS: Lactated Ringers 1,000 ML 100 ML IV (13:24)
[2023-12-13 14:36] LABS: Troponin I < 50 ng/L (< or =60)
[2023-12-13] MEDS: MORPHine 2 MG/ML SYR IVP (15:33)
--- NOTE | 2023-12-13 16:01 | PHA.REVIEW2 ---
Pharmacy Admission Review Admission Clinical Review Admission Pharmacy Review: Nausea (Acute) Epigastric abdominal pain (Acute) Discharge planning issues (Acute) On deep vein thrombosis (DVT) prophylaxis (Acute) Chest pain (Acute) [id number] Reductase Inhibitor Adverse Reaction (Unknown, Unverified 12/13/23 03:29) Other (See Comment) Resuscitation Status Full Code Weight 104.326 kg Pharmacy Admission Review Renal Dosing Renal Dosing: BUN 22 mg/dL (7-18) H 12/13/23 03:32 Creatinine 1.1 mg/dL (0.70-1.30) 12/13/23 03:32 Medications needing adjustments: Reviewed (CrCl 70.2 mL/min) List of meds needing interventions: Current medications are okay. Added patients height to chart using more recent one. Anticoagulation Anticoagulation: Hgb 15.3 g/dL (13.5-17.5) 12/13/23 03:32 Hct 43.4 % (40.0-50.0) 12/13/23 03:32 Plt Count 179 10^3/uL (130-400) 12/13/23 03:32 INR 1.0 (0.9-1.1) 12/13/23 03:32 Creatinine 1.1 mg/dL (0.70-1.30) 12/13/23 03:32 DVT Prophylaxis: Intervened (H+P is still a draft, but does say Lovenox for DVT. No order has been put in yet so I reached out to provider to make them aware.) Opiate Usage Evaluate Pain Scale/Pains Meds: Reviewed (PRN morphine (1 dose given)) Scheduled Bowel Reg ordered if on Opiates?: No Relevant Labs Relevant Labs: Sodium 141 mmol/L (136-145) 12/13/23 03:32 Potassium 3.3 mmol/L (3.5-5.1) L 12/13/23 03:32 Chloride 102 mmol/L (98-107) 12/13/23 03:32 Electrolytes, C-Reactive P, ESR: Reviewed (K 3.3, BUN 22, glucose 129 at 0332 this morning) Cardiac Review Cardiac Review: Troponin I < 50 ng/L (< or =60) 12/13/23 14:12 NT-Pro-B Natriuret Pep 74 pg/mL (<300) 12/13/23 03:32 Blood Pressure 141/79 1305 Blood Pressure 113/74 1210 Blood Pressure 149/83 1146 Blood Pressure 149/83 1145 Blood Pressure 132/49 1101 Blood Pressure 126/53 1046 Blood Pressure 122/48 1036 Blood Pressure 125/52 1032 Blood Pressure 146/67 1026 Blood Pressure 141/72 1023 Blood Pressure 169/74 1017 BP, HR, EF%: Reviewed (HR WNL, BP 141/79) QTc Review QTc: Reviewed (407 from 12/13/23) IV to PO Switch IV Medications: Reviewed (Morphine, ondansetron) Home Meds Home Med List reviewed: Intervened Relevent Home Meds Not ordered & why?: Patient is a new admin, 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 Reached out to provider to make sure they were aware. Current Meds Current Medication Order Review: Reviewed
[2023-12-13] MEDS: FAMOTIDINE 20 MG in Normal Saline 100 ML 400 MG IVPB (18:20)
--- NOTE | 2023-12-13 18:28 | NUR.NOTE ---
Nursing Note: Patient is resting in bed and denies pain at current time. However, patient reports that he has increased pain with movement and has increased pain after eating, from no pain to 5/10 pain. Per patient, the pain resolved without intervention.
[2023-12-13] MEDS: Sucralfate 1 GM TAB PO ×2 (18:46→21:28)
[2023-12-13] MEDS: Tamsulosin 0.4 MG CAPCR PO (20:16)
[2023-12-14] MEDS: Lactated Ringers 1,000 ML 100 ML IV (00:53)
[2023-12-14 03:15] VITALS: BP 138/77; PULSE 88; RESP 16; TEMP 37.4; O2SAT 93
--- NOTE | 2023-12-14 05:59 | W.PM.DS.N ---
Date of service: 12/14/23 Time of Service: 05:59 DS: Diagnosis Discharge Diagnosis (1) Chest pain: Status: Acute (2) Epigastric abdominal pain: Status: Acute (3) Nausea: Status: Acute Discharge Plan Disposition Patient Disposition: Home Condition: Fair Discharge Details Reason For Visit: chest pain Admit Date/Time: 12/13/23 10:17 Admit Provider: Adi Conrad Attending Provider: Adi Conrad Primary Care Provider: Chan Martinez Hospital Course Hospital Course: This 78 years old male patient with a past medical history of hypertension, benign prostatic hypertrophy, arthritis, presented on 12/13/2023 to the ED at [facility] via private vehicle for evaluation of chest pain. On arrival the patient was noted to be hypertensive with slightly diminished left radial pulse compared to the right. The patient abdomen was soft without signs and symptoms of acute peritonitis. The CTA of the chest abdomen and pelvis was completed without evidence of aortic dissection, aneurysm but showed atherosclerotic disease of the thoracoabdominal aorta and iliac arteries. 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 The ED provider performed a POCUS of the right upper abdominal quadrant without evidence of acute cholecystitis or free fluid. The ED provider reported that the EKG in the ED showed sinus rhythm with premature atrial contraction complexes, subtle ST depression in V6 V5n the ED, the patient was treated with IV Dilaudid, IV fentanyl, IV Pepcid, aspirin and sublingual nitro. The patient continued to have significant pain despite improvement. Troponins in the ED were negative. The ED provider mentioned that given the heart score and ongoing pain with EKG changes that hospitalization was warranted for further diagnostic workup. The hospitalist was called and the patient was admitted to the medical surgical floor with telemetry with the plan to complete a stress test on the following day. During the stay, the patient pointed that the chest pain was mostly in the epigastric region with slight tenderness to the right upper quadrant approach on palpation, with slight nausea. The pain was reproducible, and the patient no longer felt the initial radiation to the back reported in the ED. 1 additional nitro was given to the patient on the floor and the pain worsened as blood pressure dropped from 140s to 110's. The patient experienced improvement in pain with the administration of Magic mouthwash, fentanyl 25 mcg IV push as well as as needed IV morphine later on. The patient later experienced postprandial pain. The pain was described as occurring an hour after dinner, was transient and subsided independently. The patient continued to receive IV Pepcid treatment, oral Carafate was added to the treatment plan. The patient continued to receive his home medicine regiment for his chronic conditions. Today the patient had a stress test without evidence of ischemia. Based on this negative stress test, negative troponins, reproducible epigastric pain and resolution of pain after administration of Pepcid Carafate and pain management, the patient will be discharged home. The patient will need to follow-up with gastroenterology (GI) as it is most likely that the patient experience an episode of pain linked to GI pathology. The patient will have to follow-up with his primary care provider within a week of discharge. The patient mentioned that he was [facility]. After discussion with care management, the discharge summary will be [facility] to the [facility] as it is most likely that approval is needed for GI referral. The patient will go home on Pepcid, Carafate, and Colace. Patient is aware that should will return to the emergency room if he was to start to have coffee-ground emesis, pass melena or have hematochezia. Discussed with Dr. Conrad Home Meds and New Rx's Prescriptions: New docusate sodium [Colace] 100 mg Capsule 100 mg PO BID Qty: 30 0RF famotidine 20 mg Tablet 20 mg PO BID Qty: 60 0RF sucralfate 1 gram Tablet 1 g PO AC & HS Qty: 120 0RF Continued aspirin [Aspir-81] 81 MG tablet,delayed release (DR/EC) 81 mg PO DAILY ezetimibe 10 mg tablet 10 mg PO DAILY finasteride 5 mg tablet 5 mg PO DAILY tadalafil 20 mg tablet 20 mg PO DAILY PRN Rx Instructions: administer approximately 30min before sexual activity; do not use more than 1 dose per 24hrs levothyroxine 25 MCG tablet 75 mcg PO DAILY@0600 amlodipine 10 MG tablet 10 mg PO DAILY lisinopril-hydrochlorothiazide 1 EACH tablet 1 tab PO DAILY Rx Instructions: Lisinopril 20mg/HCTZ 25mg tamsulosin [Flomax] 0.4 mg capsule 0.4 mg PO QHS Discharge Instructions Stand Alone Forms: Nursing Discharge Form Referrals: Chan Martinez [Primary Care Provider] - (Office will call you to set up follow up appointment. If you do not hear from them within 24 hours please call to make appointment. ) Activity:: Activity as Tolerated Equipment/Supplies:: No Equipment Needed Diet:: heart healthy Discharge Orders Discharge Orders: Discharge Order (Routine); Ordered 12/14/23 Ordered By: Katiuska Dong DS: Summary Time Spent with Patient providing and/or coordinating discharge services: Greater than 30 minutes Status at Discharge Functional status at discharge: independent ambulation Overall status at discharge: patient is back to baseline Mental Status: mental status grossly normal Speech and Movement: speech and movement normal Mood: congruent mood Affect: normal affect Quality:SDOH Health Related Social Needs: No Data to Display Exam Narrative Exam Narrative: Constitutional The patient is lying in bed comfortable, no acute distress ,no further symptoms HENMT: Facial structures with normal appearance Neuro:alert and oriented to self, person, place., time and situation. No neurological focal deficit Chest:Chest is symmetrical and normal appearance Resp: clear lung bilaterally Cardio: Tele, SR, S1, S2, no murmur, capillary refill<3 sec., GI: Abdomen is soft , non tender, not distended, bowel sounds are present : Negative Costovertebral angle tenderness Back/spine/Pelvis: No back tenderness, normal alignment Integumentary: No skin lesions or rash Extremities: strength 5/5 to bilateral lower and upper extremities Psych: RASS 0, congruent mood and normal affect. Psych Mental Status: mental status grossly normal Speech and Movement: speech and movement normal Mood: congruent mood Affect: normal affect DS: Data Vitals/I&O Vitals and I&O: Vital Signs Temperature 37.4 C 12/14/23 03:15 Temperature Source Tympanic 12/14/23 03:15 Pulse 88 12/14/23 03:15 Pulse Rhythm Regular 12/13/23 20:40 Pulse 92 H 12/13/23 11:01 Respiratory Rate 16 12/14/23 03:15 Respiratory Effort Normal, Non-Labored 12/13/23 20:40 Respiratory Depth Normal 12/13/23 20:40 Respiratory Pattern Normal 12/13/23 20:40 Blood Pressure 138/77 12/14/23 03:15 Blood Pressure Mean 73 12/13/23 11:01 Blood Pressure Position Supine 12/13/23 03:24 Pulse Oximetry 93 12/14/23 03:15 Oxygen Delivery Method Room Air 12/14/23 03:15 Oxygen Flow Rate 0 12/14/23 03:15 Pain Level 0 12/13/23 23:36 Comment BP after second SL nitro 12/13/23 10:32 Intake & Output 12/13/23 12/13/23 12/14/23 11:59 23:59 11:59 Intake Total 100 / 1652 1552 / 1652 Output Total 650 / 650 Balance 100 / 1002 902 / 1002 Weight 104.326 kg 104.326 kg Intake: IV 100 / 1202 1102 / 1202 Oral 450 / 450 Output: Urine 650 / 650 Other: Urine Color Light Ashley Urine Appearance Clear Urine Odor Normal Voiding Methods Urinal Data Completed and Pending Labs on day of discharge: Labs from last 24 hours 12/13/23 12/13/23 12/13/23 14:12 12:53 09:45 VBG Lactate Total Bilirubin 0.6 Conjugated Bilirubin 0.1 AST 25 ALT 40 Alkaline Phosphatase 70 Troponin I < 50 < 50 Total Protein 7.2 Albumin 3.8 Add-On Test Request DONE 12/13/23 12/13/23 08:07 06:25 VBG Lactate 1.2 Total Bilirubin Conjugated Bilirubin AST ALT Alkaline Phosphatase Troponin I < 50 Total Protein Albumin Add-On Test Request PFSH All Active Problems (Updated 12/13/23 @ 13:16 by Katiuska Dong APRN) Nausea (Acute) Epigastric abdominal pain (Acute) Discharge planning issues (Acute) On deep vein thrombosis (DVT) prophylaxis (Acute) Chest pain (Acute) Arthritis of right shoulder region (Acute) Left rotator cuff tear (Acute ~12/09/22) Shoulder pain (Acute) Closed head injury with concussion (Acute) Hematoma of left parietal scalp (Acute) Chest wall contusion (Acute) Medical History BPH (benign prostatic hyperplasia) HTN (hypertension) Hypercholesterolemia Hypothyroid Social History Smoking/Tobacco Use Status: Never Smoking risk assessment performed?: Yes Alcohol Intake: current Alcohol Intake frequency: a few times a month Drug use: Never Substance use type: does not use Housing: house Current gender identity: male Do you feel safe at home: Yes Do you feel safe in your relationship?: Yes Additional Social history: at bedside Time Spent with Patient Time Spent with Patient: >85 minutes Time was spent: preparing to see the patient(eg.review tests), obtaining and/or reviewing separately otained hiistory, ordering medications,tests, procedures, referring, communicating with other health wild animal caretaker, indepentently interpreting results, counseling the patient and care coordination
[2023-12-14] MEDS: FAMOTIDINE 20 MG in Normal Saline 100 ML 400 MG IVPB (06:09)
[2023-12-14] MEDS: Levothyroxine 75 MCG TAB PO (06:10)
[2023-12-14 07:43] VITALS: BP 133/80; PULSE 78; RESP 18; TEMP 36.4; O2SAT 94
[2023-12-14] MEDS: Sucralfate 1 GM TAB PO ×3 (07:43→15:45)
[2023-12-14] MEDS: Lisinopril 20 MG TAB PO (07:43)
[2023-12-14] MEDS: amLODIPine 10 MG TAB PO (07:43)
[2023-12-14] MEDS: hydroCHLOROthiazide 25 MG TAB PO (07:43)
[2023-12-14] MEDS: Finasteride 5 MG TAB PO (07:43)
[2023-12-14] MEDS: Normal Saline Flush 10 ML SYR IVP (07:44)
[2023-12-14] MEDS: Aspirin E.C. 81 MG TABEC PO (07:44)
--- NOTE | 2023-12-14 08:00 | DI.NM_ITS ---
APPROVED REPORT Exam: Exercise Treadmill Patient Location: Out-Patient Room/Bed: Stress Nurse: Anne-Marie Barbosa RN Ordering Provider:DONNA DENIS, Contact Number: BMI: 30.20 Baseline Rhythm: Sinus Rhythm Comment: Occasional PVC's Indications: Chest pain Medical History Medical History: HLD, HTN, chest pain Cardiac Medications: Amlodipine, aspirin, ezetimide, lisinopril, hydrochlorathiazide, pepcid, nitro Allergies: Statins Cardiac Risk Factors: HTN, HLD Previous Cardiac Procedures: None Pretest Chest Pain Characteristics: None Exercise History: Indeterminate Physical Disabilities: Bilat LE's Lung Sounds: Clear to auscultation Heart Sounds: Regular Stress Test Details Test: Pharmacologic stress testing performed using 0.4 mg of regadenoson per 5 mL given IV over 10 s econds. Reason for pharmacologic stress test: physical limitation. Nuclear Acquisition: Rest Tc-99m/Stress Tc-99m 1 day Rest Isotope: Tc-99m Sestamibi. Dose: 10.0 Date: 12/14/2023 Injection Time: 1115 Stress Isotope: Tc-99m Sestamibi. Dose: 31.0 Date: 12/14/2023 Injection Time: 1320 HR Resting HR Supine: 76 bpm Max Heart Rate (APMHR): 142.591527 bpm Target HR (85% APMHR): 120.548744 bpm Max HR Achieved: 105 bpm % of APMHR: 73.94 Recovery HR: 98 bpm BP Resting BP Supine: 160/72 mmHg Max BP: 180/80 mmHg Recovery BP: 170/84 mmHg BP response to stress: Normal blood pressure response to stress. ECG Resting ECG: Sinus Rhythm Ectopy: Occasional PAC's, Occasional PVC's Stress ECG: Sinus Tachycardia ST Change: Nondiagnostic low heart rate, Downsloping ST depression, Horizontal ST depression Lead(s): inferior leads Maximum ST Deviation: 1-2 mm Arrhythmia: Occasional PAC's, occasional PVC's Recovery ECG: Sinus Rhythm Recovery ST Change: Nondiagnostic low heart rate, Downsloping ST depression, Horizontal ST depression Lead(s): inferior leads Recovery ST Deviation: 1-2 mm Recovery Arrhythmia: Occasional PAC's Clinical Stress Symptoms: Mild SOB, 5/10 chest pressure Angina Score: Non-Limiting Rate Pressure Product: 36204 Stress ECG Conclusion 1. Resting EKG showed nondiagnostic ST abnormalities 2. Patient underwent testing using pharmacologic stress with regadenosan 3. Peak heart rate achieved was 74% of predicted for age 4. The electrocardiographic portion of the test was nondiagnostic 5. See MPI report Stress Test Summary STAGE HR BP SpO2 Symptoms NOTES Supine 76 160/76 93 1 min post Lexiscan injection 92 180/80 3 min post Lexiscan injection 94 152/78 98 5/10 chest pain 6 min post Lexiscan injection 92 150/74 9 min post Lexiscan injection 99 178/70 12 min post Lexiscan injection 92 170/84 95 1/[address] depressions noted and not returning to baseline by 12 minutes post lexiscan injection. Patient not es 1/10 chest pressure at this time and is in no apparent distress. Dr. Nicole notified and ok for aracelis ent to proceed to imaging. MPI Conclusion Myocardial perfusion is normal. There is no ischemia or evidence of prior infarction EF is 60%. Wall motion is normal Radiologist Interpretation Radiologist agrees with [employer]'s Interpretation. Radiologist Interpretation by: Sybil Esteban MD Interpretation Date/Time: 12/15/2023 08:21:59
[2023-12-14] MEDS: Ezetimibe 10 MG TAB PO (08:36)
[2023-12-14 11:28] VITALS: BP 135/75; PULSE 79; RESP 18; TEMP 36.8; O2SAT 94
[2023-12-14] MEDS: Regadenoson 0.4 MG/5 ML SYR IVP (14:10)
[2023-12-14] MEDS: Docusate Sodium 100 MG CAP PO (14:23)
--- NOTE | 2023-12-14 15:16 | CHAPLAIN ---
Michael was resting in bed when I visited. I explained my role and offered support. Michael said he'd had some testing done and was waiting to speak with the hospitalists about results and hoping to be discharged home this afternoon.
[2023-12-14 15:21] VITALS: BP 144/90; PULSE 82; RESP 15; TEMP 37.2; O2SAT 97
[2023-12-14 15:34] VITALS: BP 150/80
== END 2023-12-14 17:20 | disposition home or self-care (01) | DRG 392 ==
LOC: ER 10:07 → MS 11:31
PROVIDERS: Emergency Medicine; Nurse Practitioner Acute Care; Admitting Provider Family Medicine; Emergency Provider Student in an Organized Health Care Education/Training Program; PCP Internal Medicine; Visit Provider Family Medicine
DX: R10.13 Epigastric pain (principal); R07.89 Other chest pain; R11.0 Nausea; Z79.899 Other long term (current) drug therapy; Z79.82 Long term (current) use of aspirin; I10 Essential (primary) hypertension; M54.9 Dorsalgia, unspecified; M19.011 Primary osteoarthritis, right shoulder; N40.0 Benign prostatic hyperplasia without lower urinary tract symptoms; E78.00 Pure hypercholesterolemia, unspecified; E03.9 Hypothyroidism, unspecified; K57.30 Diverticulosis of large intestine without perforation or abscess without bleeding; N28.89 Other specified disorders of kidney and ureter
CPT/HCPCS: 00123; 36415; 71275; 78452; 80053; 80076; 83690; 86850; 86900; 86901; 93005; 96365; 96375; 99285; 74174; 83605; 83880; 84484; 85025; 85610; 85730; 93010; 93017; 99223; 99239; J0131; J0360; J1170; J2060; J2270; J2405; J2785; J3010; J3490

== ENCOUNTER 2024-04-21 20:25 | Inpatient (IN) | payer OTHER, SELFPAY ==
[2024-04-21] VITALS (22 sets, daily range): BP systolic 139–167; BP diastolic 53–77; PULSE 56–74; RESP 10–20; TEMP 36.3; O2SAT 84–98
--- NOTE | 2024-04-21 20:15 | RT.EKG_ITS ---
APPROVED REPORT Exam: Resting ECG Reason for Exam: CP Patient Location: E HR:59 bpm ECG Measurements Heart Rate 59 AXIS VT 184 P 27 QRSd 95 QRS 71 QT 448 T 106 QTc 445 Conclusion Sinus bradycardia...rate< 60 Probable inferior infarct, old...Q>35mS, II III aVF Abnrm T, consider ischemia, anterolateral lds...T <-0.20mV, I aVL V2-V6 Narrow complex sinus bradycardia rate of 59. Normal axis. Intervals within normal limits. New inve rted T wave in V2 and in aVL and lead I. New compared to prior dated earlier this year. No ST segme nt abnormalities. Inferior Q waves similar to prior.
[2024-04-21] MEDS: Mylanta Suspension 30 ML CUP (20:48)
[2024-04-21] MEDS: Lidocaine 2% Viscous 15 ML CUP (20:48)
--- NOTE | 2024-04-21 21:00 | DI.RAD_ITS ---
Exam(s) XR PORTABLE CHEST AP EXAM: XR PORTABLE CHEST AP CLINICAL HISTORY: Chest pain. TECHNIQUE: 2D digital imaging was performed. COMPARISON: CR XR PORTABLE CHEST AP from 07/20/2022 FINDINGS: Single AP portable view. Heart size is upper normal. The mediastinum is not widened. Lungs are clear. No infiltrates nor obvious pleural effusions. IMPRESSION: No acute pulmonary findings on this single AP portable view of the chest. DATA REPOSITORY: RADIATION DOSE DELIVERED:
--- NOTE | 2024-04-21 21:10 | ED.GENADUL_ITS ---
Discharge Plan Discharge Details Chief Complaint: Abd Prob Primary Care Provider: Chan Martinez ED Provider: Michael Martin Home Meds and New Rx's Prescriptions: No Action aspirin [Aspir-81] 81 MG tablet,delayed release (DR/EC) 81 mg PO DAILY ezetimibe 10 mg tablet 10 mg PO DAILY finasteride 5 mg tablet 5 mg PO DAILY tadalafil 20 mg tablet 20 mg PO DAILY PRN Rx Instructions: administer approximately 30min before sexual activity; do not use more than 1 dose per 24hrs levothyroxine 25 MCG tablet 75 mcg PO DAILY@0600 amlodipine 10 MG tablet 10 mg PO DAILY lisinopril-hydrochlorothiazide 1 EACH tablet 1 tab PO DAILY Rx Instructions: Lisinopril 20mg/HCTZ 25mg tamsulosin [Flomax] 0.4 mg capsule 0.4 mg PO QHS docusate sodium [Colace] 100 mg Capsule 100 mg PO BID Qty: 30 0RF famotidine 20 mg Tablet 20 mg PO BID Qty: 60 0RF gabapentin 100 mg capsule 100 mg PO DAILY HPI General Date/Time Provider Initiated Documentation: 04/21/24 21:09 . HPI Narrative: MDM This is an uncomfortable appearing afebrile and not tachycardic 78-year-old male with risk factors of hypertension hyperlipidemia concerning possibility of ACS versus pancreatitis versus aortic dissection for which patient will receive ECG lipase assessment CT angiogram of his chest abdomen pelvis. No pain out of pr oportion to suggest necrotizing soft tissue infection. Given tearing we will assess for dissection. No rash to chest to suggest zoster. No right upper quadrant tenderness to suggest acute cholecystitis. No recent vomiting to suggest increased risk for esophageal rupture. No fevers nor cough to suggest pneumonia. Not hypotensive nor dialysis patient so doubt tamponade. No trauma and equal breath sounds without pneumothorax. 10:30 PM Markedly elevated lipase consistent with pancreatitis. Normal reassuring magnesium. CBC lacks anemia thrombocytopenia and leukocytosis. Negative reassuring troponin. Negative reassuring proBNP. Comprehensive metabolic panel showing markedly elevated LFTs. No MATEO. No anion gap. 12 AM Patient is improved pain. He was found to have pancreatitis on imaging but no acute complications- no pseudocysts and no necrotizing features nor abscess. On CT angiogram patient had no signs of aortic dissection. 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 No history of atrial fibrillation nor pain out of proportion to I was not concerned for mesenteric ischemia. Patient will benefit from right upper quadrant ultrasound given cholelithiasis. I started him on maintenance fluids. Will keep him n.p.o. He will likely benefit from repeat assessment of his lipids given his elevated BMI. Chronic conditions affecting the care of the patient: Elevated BMI hypertension hyperlipidemia History obtained from an outside historian: N/A External record review: N/A Diagnostic interpretations performed by me: Per my independent interpretation chest x-ray shows: No acute cardiopulmonary process No acute cardiopulmonary process. Per my independent interpretation EKG shows: Narrow complex sinus bradycardia rate of 59. Normal axis. Intervals within normal limits. New inverted T wave in V2 and in aVL and lead I. New compared to prior dated earlier this year. No ST segment abnormalities. Inferior Q waves similar to prior. ]Medications: Morphine Social determinants of health affecting disposition: N/A Management discussed with: Overnight ED attending Treatment/interventions considered: N/A Response to therapies provided: Improved symptoms in the ED HPI This is a 78-year-old male with history of hypertension hyperlipidemia arrived to the emergency department via private vehicle in setting of abdominal pain. Patient describes a ripping sensation in his epigastrium that radiates into his chest. He has a prior history of gastric ulcer reports that symptoms feel similar. He denies black or bloody stools. No dysuria nor frequency. No loss of consciousness. No shortness of breath. Patient denies routine ethanol use. He has never had any surgeries to his abdomen. He has never had a PE nor DVT. No recent cough nor diarrhea. Patient has no history of known coronary artery disease nor history of diabetes. He has not taken any recent falls. Patient is nauseous but has not been vomiting. Exam General: Well-appearing in no acute distress speaking in complete sentences. Head: Normocephalic, atraumatic. Eye: Extraocular eye movements intact. No conjunctival injection. No scleral icterus. Ear, nose, mouth, throat: Grossly normal inspection. Normal voice, handling secretions normally. Neck: Trachea midline. Cardiovascular: Well-perfused distal extremities. Regular rate and rhythm. Respiratory: Nonlabored respiration. Clear lungs bilaterally. Gastrointestinal: Nondistended abdomen. Soft. Epigastric tenderness. No rebound. No guarding. Musculoskeletal: No significant lower extremity pitting edema. Moving all 4 extremities spontaneously. Skin: Normal for age and race, grossly normal temperature and turgor. No acute rash. Neurologic: Alert and appropriate, no apparent acute deficits. Psychiatric: Mood and manner are appropriate. Grooming and personal hygiene are appropriate. Related Data Home Medications ?Medication ?Instructions ?Recorded ?Confirmed amlodipine 10 mg tablet 10 mg PO DAILY 11/18/13 04/21/24 levothyroxine 25 mcg tablet 75 mcg PO DAILY@0600 11/18/13 04/21/24 lisinopril 20 1 tab PO DAILY 11/18/13 04/21/24 mg-hydrochlorothiazide 25 mg tablet aspirin 81 mg tablet,delayed 81 mg PO DAILY 10/10/16 04/21/24 release (Aspir-) ezetimibe 10 mg tablet 10 mg PO DAILY 12/27/22 04/21/24 finasteride 5 mg tablet 5 mg PO DAILY 12/27/22 04/21/24 tadalafil 20 mg tablet 20 mg PO DAILY PRN 12/27/22 04/21/24 tamsulosin 0.4 mg capsule (Flomax) 0.4 mg PO QHS 12/13/23 04/21/24 docusate sodium 100 mg capsule 100 mg PO BID #30 caps 12/14/23 04/21/24 (Colace) famotidine 20 mg tablet 20 mg PO BID #60 tabs 12/14/23 04/21/24 gabapentin 100 mg capsule 100 mg PO DAILY 04/21/24 04/21/24 Previous Rx's ?Medication ?Instructions ?Recorded docusate sodium 100 mg capsule 100 mg PO BID #30 caps 12/14/23 (Colace) famotidine 20 mg tablet 20 mg PO BID #60 tabs 12/14/23 Allergies Allergy/AdvReac Type Severity Reaction Status Date / Time [id number] Reductase AdvReac Unknown Other (See Unverified 04/21/24 20:37 Inhibitor Comment) General Stated Complaint: Abd Prob SUE: 3 Course Vital Signs Vital signs: Vital Signs Temperature 36.3 C L 04/21/24 20:28 Pulse 63 04/21/24 20:28 Respiratory Rate 18 04/21/24 20:28 Blood Pressure 165/66 H 04/21/24 20:28 Pulse Oximetry 98 04/21/24 20:28 Temperature 36.3 C L 04/21/24 20:28 Temperature Source Temporal Artery Scan 04/21/24 20:28 Pulse 63 04/21/24 20:28 Respiratory Rate 18 04/21/24 20:28 Blood Pressure 165/66 H 04/21/24 20:28 Blood Pressure Position Sitting 04/21/24 20:28 Pulse Oximetry 98 04/21/24 20:28 Oxygen Delivery Method Room Air 04/21/24 20:28 Oxygen Flow Rate 0 04/21/24 20:28 Pain Level 10 04/21/24 20:28 Medical Decision Making Quality:SDOH Health Related Social Needs: No Data to Display PFSH All Active Problems (Updated 01/12/24 @ 00:05 by AMARI FINN) Epigastric abdominal pain (Acute) Arthritis of right shoulder region (Acute) Left rotator cuff tear (Acute ~12/09/22) Shoulder pain (Acute) Closed head injury with concussion (Acute) Hematoma of left parietal scalp (Acute) Chest wall contusion (Acute) Medical History BPH (benign prostatic hyperplasia) HTN (hypertension) Hypercholesterolemia Hypothyroid Social History Smoking/Tobacco Use Status: Never Smoking risk assessment performed?: Yes Alcohol Intake: current Alcohol Intake frequency: a few times a month Drug use: Never Substance use type: does not use Housing: house Current gender identity: male Do you feel safe at home: Yes Do you feel safe in your relationship?: Yes Additional Social history: at bedside
[2024-04-21] MEDS: nitroGLYcerin 0.4 MG TAB SL (21:34)
[2024-04-21] MEDS: Aspirin 81 MG CHEW 324 MG CH (21:34)
[2024-04-21 21:36] LABS: Abs Immature Grans 0.05 10^3/uL (0.0-0.06); Absolute Basophil Count 0.06 10^3/uL (0.0-0.2); Absolute Eosinophil Count 0.08 10^3/uL (0.0-0.7); Absolute Lymphocyte Count 0.77 10^3/uL (1.2-3.4); Absolute Monocyte Count 0.57 10^3/uL (0.1-0.8); Absolute Neutrophil Count 9.14 10^3/uL (1.2-6.7); Basophils % 0.6 %; Eosinophils % 0.7 %; HCT 43.2 % (40.0-50.0); HGB 15.2 g/dL (13.5-17.5); Immature Grans % 0.5 %; Lymphocytes % 7.2 %; MCH 31.3 pg (27.0-33.0); MCHC 35.2 % (32.0-36.0); MCV 89 fL (80-95); MPV 9.9 fL (8.0-11.0); Monocytes % 5.3 %; Neutrophils % 85.7 %; Platelet Count 172 10^3/uL (130-400); RBC 4.85 10^6/uL (4.36-5.78); RDW 12.1 % (11.8-14.1); RDW-SD 39.6 fL; WBC 10.67 10^3/uL (4.4-10.8)
--- NOTE | 2024-04-21 21:45 | DI.CT_ITS ---
Exam(s) CT THORAX ABD/PEL CTA EXAM: CT THORAX ABD/PEL CTA CLINICAL HISTORY: Tearing epigastric pain. TECHNIQUE: Imaging Protocol: Axial CT angiography was performed with multi-slice acquisition and m ulti-planar and/or 3D reconstructions. CONTRAST MATERIAL: Intravenous: Omnipaque 350 contrast volume:100 mL Oral: No COMPARISON: CT CT THORAX ABD/PEL CTA from 12/13/2023 CT,NM,TMT NM MPI REST STRESS GRP from 12/14/2023 FINDINGS: CHEST: Tracheobronchial tree: Patent where visualized. Pulmonary parenchyma: Atelectasis is seen in the lung bases. No architectural distortion. Pulmonary Arteries: No evidence of filling defect to suggest pulmonary emboli. Mediastinum and Huong: No dominant adenopathy or fluid collection. Visualized thyroid: Unremarkable. Pleura: No effusion or pneumothorax. Heart: Mild cardiomegaly. Coronary artery calcifications are present. No coronary artery calcificat ions are seen. No pericardial effusion. Aorta: Thoracic aorta non-dilated. No evidence of dissection. Atherosclerotic calcification is prese nt. Soft Tissues: Unremarkable. Bones: Within normal limits for the patient's age. ABDOMEN AND PELVIS: Abdomen: Celiac axis/mesenteric arteries: On the lateral view, there is severe stenosis seen at the origin of the celiac artery adjacent to a large calcification. There is also severe stenosis 1 cm distally in t he celiac artery. Atherosclerotic calcification is present. Renal Arteries: No evidence of occlusion or significant stenosis. Atherosclerotic calcification is p resent. Aorta: No evidence of occlusion or significant stenosis. No aneurysm or dissection. Atheroscleroti c calcification is present. Pelvis: Iliac Arteries: No evidence of occlusion or significant stenosis. Atherosclerotic calcification is present. Common Femoral Arteries: No evidence of occlusion or significant stenosis. Atherosclerotic calcific ation is present. ABDOMEN: Liver: Normal density. No measurable mass. Gallbladder and Biliary Tract: Cholelithiasis. No biliary ductal dilatation. Splenic, portal and superior mesenteric veins: Unremarkable. Pancreas: There is stranding seen around the pancreas. The findings are suspicious for acute pancrea titis. No focal fluid collection is seen to suggest an abscess. Spleen: Normal. Adrenals: No masses seen. Kidneys: Normal size, contour and axis. No radiodense stones or obstructive uropathy. No masses seen. Bowel: There is mild wall thickening seen in the horizontal portion of the duodenum likely secondary to the adjacent pancreatitis. There is no evidence of bowel obstruction. There is diverticulosis of t he colon without evidence of acute diverticulitis. Appendix is unremarkable. Peritoneal Cavity: There is a small amount of pelvic and abdominal ascites. No free air. Lymph Nodes: Within normal limits. Bones: Within normal limits for the patient's age. Soft Tissues: Bilateral fat containing inguinal hernias are present. PELVIS: Bladder: The urinary bladder is incompletely distended. Reproductive Organs: The prostate gland is mildly enlarged. Lymph Nodes: Within normal limits. Bones: Within normal limits for the patient's age. IMPRESSION: 1. No evidence of aortic dissection. 2. 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 3. Findings of acute pancreatitis. 4. Cholelithiasis. No biliary ductal dilatation. RADIATION DOSE DELIVERED: Total DLP DATA REPOSITORY: All CT scans at this facility are submitted to the National Radiology Data Registry (NRDR) Dose Index Registry (DIR) with the [employer] (ACR). RADIATION OPTIMIZATION: All CT scans at this facility use at least one of these dose optimization te chniques: automated exposure control; mA and/or kV adjustment per patient size (includes targeted exa ms where dose is matched to clinical indication); or iterative reconstruction.
[2024-04-21 21:48] LABS: Prothrombin Time 10.4 sec (9.1-11.1)
[2024-04-21 22:05] LABS: ALT 378 U/L (16-63); AST 399 U/L (15-37); Albumin 3.8 g/dL (3.4-5.0); Alkaline Phosphatase 90 U/L (46-116); BUN 22 mg/dL (7-18); Bilirubin, Total 2.39 mg/dL (0.2-1.0); CREATININE 1.2 mg/dL (0.70-1.30); Calcium 9.4 mg/dL (8.5-10.1); Chloride 101 mmol/L (98-107); Glucose 211 mg/dL (74-106); Lipase > 375 U/L (16-77); Magnesium 1.9 mg/dL (1.8-2.4); NT-proBNP 45 pg/mL (<300); Potassium 3.4 mmol/L (3.5-5.1); Sodium 141 mmol/L (136-145); Troponin I < 50 ng/L (< or =60)
[2024-04-21] MEDS: MORPHine 4 MG/ML SYR IVP (22:07)
[2024-04-21] MEDS: Normal Saline 500 ML IV (22:33)
[2024-04-21] MEDS: Omnipaque 350 MG/ML 100 ML BTL IJ (22:43)
[2024-04-21] MEDS: Normal Saline - Diluent 50 ML VIAL IJ (22:50)
--- NOTE | 2024-04-21 23:37 | DI.VRAD_ITS ---
PROCEDURE INFORMATION: Exam: XR Chest Exam date and time: 04/21/2024 10:02 PM Age: 78 years old Clinical indication: Other: Unspecified; Patient HX: Chest pain TECHNIQUE: Imaging protocol: Radiologic exam of the chest. Views: 1 view. COMPARISON: CT THORAX ABD/PEL CTA 12/13/2023 3:48 AM FINDINGS: Lungs: Unremarkable. No consolidation. Pleural spaces: Unremarkable. No pleural effusion. No pneumothorax. Heart/Mediastinum: Unremarkable. No cardiomegaly. Bones/joints: Unremarkable. IMPRESSION: 1. No acute findings. 2. Clear lungs and pleural space bilaterally. 3. Normal cardiac contour and mediastinal silhouette. Dictated and Authenticated by: Kenny Alamo MD. Ordering:MARIBEL Rodriguez MD
--- NOTE | 2024-04-21 23:49 | DI.VRAD_ITS ---
PROCEDURE INFORMATION: Exam: CTA Chest With Contrast CTA Abdomen and Pelvis With Contrast Exam date and time: 04/21/2024 10:42 PM Age: 78 years old Clinical indication: Pain; Other: Epigastric tearing TECHNIQUE: Imaging protocol: Computed tomographic angiography of the chest with contrast. Exam focused on the arteries. Computed tomographic angiography of the abdomen and pelvis with contrast. Exam focused on the arteries. 3D rendering (Not supervised by radiologist): MIP and/or 3D reconstructed images were created by the technologist. Contrast material: OMNIPAQUE 350; Contrast volume: 100 ml; Contrast route: INTRAVENOUS (IV); COMPARISON: CT THORAX ABD/PEL CTA 12/13/2023 3:48 AM FINDINGS: VASCULATURE: Pulmonary arteries: Pulmonary arterial opacification is of good technical quality. No embolism. Aorta: Thoracic aorta atherosclerotic calcium. No aneurysm. No dissection. Atherosclerotic abdominal aorta. No aneurysm. Celiac trunk and mesenteric arteries: Atherosclerotic calcium at the origin of the celiac artery with severe stenosis. There is also a non osteal proximal celiac artery severe stenosis which has an appearance consistent with median arcuate ligament crossing. See series 6: Image 44. Superior mesenteric artery origin is widely patent. Renal arteries: Right renal artery origin with mild atherosclerotic stenosis at 30% diameter. Left renal artery proximal mild atherosclerotic stenosis at 20% diameter. Right iliac arteries: No occlusion or significant stenosis. Left iliac arteries: No occlusion or significant stenosis. CHEST: Lungs: Lungs are clear bilaterally. No consolidation. No edema. Minimal posterior dependent atelectasis. Pleural spaces: No pleural effusion. No pneumothorax. Heart: Normal heart size. No pericardial effusion. Severe right and left coronary artery atherosclerotic calcium. ABDOMEN AND PELVIS: Liver: Diffuse moderate fatty liver change. Gallbladder and biliary ducts: Gallstone. No acute biliary tract findings. Pancreas: Pancreatic edema and peripancreatic inflammatory features consistent with acute pancreatitis. No necrotizing features. No pseudocyst or abscess evident. Spleen: The spleen is normal in size, contour and attenuation. Adrenal glands: The adrenal glands are normal in size and contour bilaterally. Kidneys and ureters: The kidneys bilaterally are unremarkable. Normal attenutation. No hydronephrosis. No calculi. Right renal lateral cortical 10 x 5 mm hyperdense focus most consistent with a cyst. This is also present 12/13/2023 on prior study without interval change. Anterior left renal cortical cyst measuring 12 mm. Stomach and bowel: Gastric morphology is unremarkable. No edema. No gastric outlet obstruction. Small bowel loops are normal in course. There is mild distension of the duodenal sweep and proximal to mid jejunum without distinct obstructing lesion. This may represent a developing ileus related to the pancreatitis. Large bowel is unremarkable in course and caliber. No obstructive features. No edema. Scattered diverticulosis without acute diverticulitis. Appendix: No evidence of appendicitis. Intraperitoneal space: Small volume free fluid in the abdomen and pelvis. Urinary bladder: Urinary bladder is unremarkable in appearance. No wall thickening. No intravesicular calculi. No intravesicular gas. Reproductive: Moderate prostate enlargement. Recommend clinical correlation. Lymph nodes: Unremarkable. No enlarged lymph nodes. Bones/joints: Degenerative thoracic spine changes. No acute skeletal findings. Lumbar spine degenerative disease. Soft tissues: Chest wall soft tissues are unremarkable. IMPRESSION: 1. Acute pancreatitis. 2. Gallstones. No acute biliary tract findings. 3. Fatty liver features. 4. Mild distension of duodenal sweep and proximal jejunal loops may represent a developing ileus secondary to the intra-abdominal inflammation. There is no distinct obstructing focus. 5. Small volume free fluid in the abdomen. 6. Prostate enlargement. 7. Degenerative thoracic and lumbar spine changes. 8. No evidence of aortic dissection or aneurysm. 9. Severe coronary artery atherosclerotic calcium. 10. Minor posterior lung base atelectasis. No acute infiltrates or edema. 11. No acute pleural change. 12. 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 See above. Dictated and Authenticated by: Kenny Alamo MD. Ordering:MARIBEL Rodriguez MD
[2024-04-22] VITALS (22 sets, daily range): BP systolic 163–206; BP diastolic 72–94; PULSE 58–87; RESP 14–20; TEMP 36.6–37.5; O2SAT 91–99
--- NOTE | 2024-04-22 | DI.MRI_ITS ---
Exam(s) MR ABDOMEN WO EXAM: MR ABDOMEN WO CLINICAL HISTORY: acute pancreatitis TECHNIQUE: Multiplanar multisequence MRI was performed. MRCP also performed. No IV contrast COMPARISON: CT CT THORAX ABD/PEL CTA from 04/21/2024 FINDINGS: VISUALIZED LUNG BASES: No pleural effusions evident. There is some ascites both sides of the abdomen which is related to pancreatitis evident on yesterday 's CT scan. The amount of fluid appears increased from yesterday's CT scan. LIVER: Normal size. No focal hepatic lesions nor obvious dilatation of intrahepatic ducts evident. BILIARY/MRCP: There are very many the calculi in the gallbladder lumen which are more evident than on CT scan. Some fluid is seen around the gallbladder but difficult to determine if this is from the p ancreatitis or gallbladder pathology. The CBD is not dilated but appears to contain multiple tiny ca lculi. The maximum diameter of the CBD is 5 mm. PANCREAS: Peripancreatic fluid noted, consistent with acute pancreatitis. The pancreatic duct is not dilated. There is no pancreatic mass evident. No evidence of obvious pancreatic necrosis. No form ed pseudocyst within the pancreas and surrounding tissues at this time. SPLEEN: Spleen is not enlarged and there are no intrasplenic lesions. ADRENALS: There are no significant adrenal masses. KIDNEYS: No solid renal masses. No hydronephrosis.There is a 2 cm septated cyst in the anterior aspe ct of the right kidney. Tiny cyst in the inferior pole of the right kidney noted. Small nodule ante riorly in the left kidney noted which is probably hemorrhagic cyst. ABDOMINAL AORTA: Not enlarged and there is no significant para-aortic adenopathy. ANTERIOR ABDOMINAL WALL/GI: There is no evidence of significant anterior abdominal wall hernia in the field of view of this study.Is no evidence of obvious bowel obstruction. OSSEOUS: There are no lytic osseous lesions in the field of view of this study. IMPRESSION: 1. Findings are consistent with acute pancreatitis in the setting of cholelithiasis. There are multi ple tiny calculi in the gallbladder lumen which are better seen on MRI than on CT scan, and indeed th ere appear to be tiny calculi in the nondistended CBD, as seen on the MRCP images. Therefore suspect gallstone pancreatitis. 2. Pancreatic duct is not dilated. There is no pancreatic mass. There is increasing peripancreatic fluid but no evidence of intrapancreatic pseudocyst and there is no formed pseudocyst in the adjacent soft tissues at this time. Also no evidence of obvious pancreatic necrosis evident on this noninfus ed MRI study. DATA REPOSITORY:
[2024-04-22] MEDS: Normal Saline 1,000 ML 150 ML IV (00:10)
--- NOTE | 2024-04-22 00:12 | W.EDPROG ---
Date of service: 04/22/24 Time of Service: 00:12 Medical Decision Making I spoke with Dr. Posey who agreed graciously to accept the patient for hospitalization. Quality:SDOH Health Related Social Needs: No Data to Display Sign Out Sign Out Data: Sign Out Comment: 78-year-old male with hypertension hyperlipidemia found to have acute pancreatitis with cholelithiasis and LFT abnormalities. Please follow-up repeat troponin. Hospitalist has been paged but has not yet been made aware of this patient's need for MedSur level hospitalization for IV fluids and likely a upper quadrant ultrasound tomorrow. CT angiogram reassuring against aortic dissection. Last updated by Michael Martin MD at 04/22/24 00:06 Discharge Plan Disposition Patient Disposition: Admit to [facility] Discharge Details Chief Complaint: Abd Prob Clinical Impression: Acute pancreatitis Primary Care Provider: Chan Martinez ED Provider: Michael Martin Home Meds and New Rx's Prescriptions: No Action aspirin [Aspir-81] 81 MG tablet,delayed release (DR/EC) 81 mg PO DAILY ezetimibe 10 mg tablet 10 mg PO DAILY finasteride 5 mg tablet 5 mg PO DAILY tadalafil 20 mg tablet 20 mg PO DAILY PRN Rx Instructions: administer approximately 30min before sexual activity; do not use more than 1 dose per 24hrs levothyroxine 25 MCG tablet 75 mcg PO DAILY@0600 amlodipine 10 MG tablet 10 mg PO DAILY lisinopril-hydrochlorothiazide 1 EACH tablet 1 tab PO DAILY Rx Instructions: Lisinopril 20mg/HCTZ 25mg tamsulosin [Flomax] 0.4 mg capsule 0.4 mg PO QHS docusate sodium [Colace] 100 mg Capsule 100 mg PO BID Qty: 30 0RF famotidine 20 mg Tablet 20 mg PO BID Qty: 60 0RF gabapentin 100 mg capsule 100 mg PO DAILY
[2024-04-22] MEDS: MORPHine 4 MG/ML SYR (00:33)
--- NOTE | 2024-04-22 00:45 | HPE_ITS ---
Date of service: 04/22/24 Time of Service: 00:45 Assessment and Plan Assessment and plan (1) Acute pancreatitis: Start date: 04/22/24 Status: Acute Assessment and plan: This is a 78-year-old gentleman who presented to the ED with acute onset of abdominal epigastric pain radiating into his chest with negative troponins and no evidence of ischemic heart disease but acute pancreatitis with cholelithiasis and probable gallstone pancreatitis though there does not appear to be ongoing common bile duct obstruction. Patient will have ultrasound of the gallbladder being n.p.o. with IV hydration and potassium repletion through the IV hydration. 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 He does have elevated glucose on lab with no history of diabetes and will be followed with glucometer measurements ACHS and sensitive sliding scale coverage with insulin. Surgical consultation will be sought in the morning after ultrasound of the abdomen. Patient is a full code. Qualifiers: Acute pancreatitis complication: no infection or necrosis Pancreatitis type: biliary Qualified Code(s): K85.10 - Biliary acute pancreatitis without necrosis or infection (2) Elevated liver function tests: Start date: 04/22/24 Status: Acute Assessment and plan: Alkaline phosphatase is normal with elevated liver enzymes and total bilirubin with no evidence of common bile duct obstruction or dilated hepatic tree. Patient does have a fatty liver. (3) Cholelithiasis: Start date: 04/22/24 Status: Acute Assessment and plan: Patient will have ultrasound the gallbladder and abdomen in the morning with surgical consultation and follow-up. Consider MRCP if indicated. Qualifiers: Biliary obstruction: with biliary obstruction Cholecystitis presence: w ithout cholecystitis Cholelithiasis location: gallbladder Qualified Code(s): K 80.21 - Calculus of gallbladder without cholecystitis with obstruction (4) Hypokalemia: Status: Acute Assessment and plan: Replete with IV potassium while IV hydration is taking place overnight. Recheck in the morning and adjust supplement accordingly. Patient is n.p.o. and will not be given oral potassium. He is on chronic hydrochlorothiazide. (5) Hypertriglyceridemia: Status: Chronic Assessment and plan: By history with patient not on treatment and lipid profile will be checked in the morning. Hypertriglyceridemia could cause acute pancreatitis the patient does have gallstones and this is more likely gallstone pancreatitis. (6) HTN (hypertension): Assessment and plan: Slightly elevated with outpatient medical therapy to be continued the same. Patient may need daily oral potassium supplementation long-term been on hydrochlorothiazide with lisinopril. An option would be having increased potassium in his diet. Qualifiers: Hypertension type: primary hypertension Qualified Code(s): I10 - Essential (primary) hypertension (7) Hypothyroid: Assessment and plan: Continue supplement and follow-up TSH. Qualifiers: Hypothyroidism type: acquired Qualified Code(s): E03.9 - Hypothyroidism, unspecified (8) BPH (benign prostatic hyperplasia): Assessment and plan: Continue outpatient medical therapy. 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 Check lipid profile and initiate statins if needed and patient may need vascular follow-up. General surgery can comment on this finding. History of Present Illness History of Present Illness Chief Complaint: Acute onset epigastric abdominal pain radiating into chest Narrative: This is a 78-year-old male patient who presented to the ED with an acute onset epigastric pain just after lunch which eventually radiated up into his chest retrosternally but at the time I saw the patient was mostly abdominal discomfort over the epigastrium. This similar episode December 13, 2023 and was not hospitalized but did note by CT exam at that time that he had cholelithiasis. At that time he did not have elevation of his liver function test and CTA did not reveal celiac artery stenosis as today. He denies any colicky type pain in between these visits. He is overweight. He has had previous episodes but this was years ago. He does speak with a raspy hoarse voice which is an intermittent since a severe viral pharyngitis a couple years ago. He is a non-smoker but does have an occasional beer. He goes to the [facility] for his chronic care. He has never had a heart event and has had no abdominal surgery. Evaluation in ED at this time reveals cholelithiasis with acute pancreatitis by imaging and increased lipase. His white count is not elevated and is not febrile. There is no evidence of cholecystitis by CT exam. CT did reveal severe stenosis of the celiac artery may be causing some ischemic bowel disease would need to be further investigated. At the time I saw the patient was having persistent abdominal discomfort but no chest pain. His troponin was negative. He was not jaundiced. Patient was admitted to remain n.p.o. with pain management and consider surgical consultation morning. Ultrasound the gallbladder and consideration of MRCP if recommended by surgery. Labs will be trended. Patient is a full code. Review of Systems Narrative: 13 point review of systems otherwise unrevealing or stable. PFSH All Active Problems (Updated 04/22/24 @ 01:29 by Ronald Posey) Arteriosclerotic vascular disease (Chronic) Hypokalemia (Acute) Hypertriglyceridemia (Chronic) Cholelithiasis (Acute) Elevated liver function tests (Acute) Acute pancreatitis (Acute) Epigastric abdominal pain (Acute) Arthritis of right shoulder region (Acute) Left rotator cuff tear (Acute ~12/09/22) Shoulder pain (Acute) Closed head injury with concussion (Acute) Hematoma of left parietal scalp (Acute) Chest wall contusion (Acute) Medical History Hypercholesterolemia Hypothyroid HTN (hypertension) BPH (benign prostatic hyperplasia) Social History Smoking/Tobacco Use Status: Never Smoking risk assessment performed?: Yes Alcohol Intake: current Alcohol Intake frequency: a few times a month Drug use: Never Substance use type: does not use Housing: house Current gender identity: male Do you feel safe at home: Yes Do you feel safe in your relationship?: Yes Additional Social history: at bedside Meds Allergies and Home Medications Allergies Allergy/AdvReac Type Severity Reaction Status Date / Time [id number] Reductase AdvReac Unknown Other (See Unverified 04/21/24 20:37 Inhibitor Comment) Home Medications ?Medication ?Instructions ?Recorded ?Confirmed ?Type amlodipine 10 mg tablet 10 mg PO DAILY 11/18/13 04/21/24 History levothyroxine 25 mcg tablet 75 mcg PO DAILY@0600 11/18/13 04/21/24 History lisinopril 20 1 tab PO DAILY 11/18/13 04/21/24 History mg-hydrochlorothiazide 25 mg tablet aspirin 81 mg tablet,delayed 81 mg PO DAILY 10/10/16 04/21/24 History release (Aspir-) ezetimibe 10 mg tablet 10 mg PO DAILY 12/27/22 04/21/24 History finasteride 5 mg tablet 5 mg PO DAILY 12/27/22 04/21/24 History tadalafil 20 mg tablet 20 mg PO DAILY PRN 12/27/22 04/21/24 History tamsulosin 0.4 mg capsule (Flomax) 0.4 mg PO QHS 12/13/23 04/21/24 History docusate sodium 100 mg capsule 100 mg PO BID #30 caps 12/14/23 04/21/24 Rx (Colace) famotidine 20 mg tablet 20 mg PO BID #60 tabs 12/14/23 04/21/24 Rx gabapentin 100 mg capsule 100 mg PO DAILY 04/21/24 04/21/24 History Exam Narrative Exam Narrative: General: Patient appears appropriate for age, slightly anxious, alert and oriented x 3 and in no acute distress. HEENT: Normocephalic, eyes with pupils equal and react to light symmetrically, extraocular movement intact and sclera anicteric. Oropharynx with moist mucosa and fair dentition. Patient does speak with a hoarse voice. Neck: Supple without JVD. Back: Stooped posture without CVA tenderness. Heart: Regular rate and rhythm with quiet systolic murmur left sternal border, otherwise no gallops or rubs. Abdomen: Obese contour, soft but tender to palpation diffusely of the epigastrium with positive Carr sign but no palpable hepatosplenomegaly. Severe guarding epigastrium without rebound. Bowel sounds decreased but positive in all quadrants. Genitalia/rectal: Exam deferred. Extremities: Without clubbing, cyanosis or grossly pitting edema. Good capillary refill. Skin: Normal color, warm and dry. Neuro: Cranial 2 to focal status, no focalizing motor deficits. No tremor. Psych: Normal affect and mood. No abnormal thought processes. Remote and recent memory intact. Results Imaging Imaging Studies: Exam: XR Chest Exam date and time: 04/21/2024 10:02 PM Age: 78 years old Clinical indication: Other: Unspecified; Patient HX: Chest pain TECHNIQUE: Imaging protocol: Radiologic exam of the chest. Views: 1 view. COMPARISON: CT THORAX ABD/PEL CTA 12/13/2023 3:48 AM FINDINGS: Lungs: Unremarkable. No consolidation. Pleural spaces: Unremarkable. No pleural effusion. No pneumothorax. Heart/Mediastinum: Unremarkable. No cardiomegaly. Bones/joints: Unremarkable. IMPRESSION: 1. No acute findings. 2. Clear lungs and pleural space bilaterally. 3. Normal cardiac contour and mediastinal silhouette. Exam: CTA Chest With Contrast CTA Abdomen and Pelvis With Contrast Exam date and time: 04/21/2024 10:42 PM Age: 78 years old Clinical indication: Pain; Other: Epigastric tearing will likely COMPARISON: CT THORAX ABD/PEL CTA 12/13/2023 3:48 AM FINDINGS: VASCULATURE: Pulmonary arteries: Pulmonary arterial opacification is of good technical quality. No embolism. Aorta: Thoracic aorta atherosclerotic calcium. No aneurysm. No dissection. Atherosclerotic abdominal aorta. No aneurysm. Celiac trunk and mesenteric arteries: Atherosclerotic calcium at the origin of the celiac artery with severe stenosis. There is also a non osteal proximal celiac artery severe stenosis which has an appearance consistent with median arcuate ligament crossing. See series 6: Image 44. Superior mesenteric artery origin is widely patent. Renal arteries: Right renal artery origin with mild atherosclerotic stenosis at 30% diameter. Left renal artery proximal mild atherosclerotic stenosis at 20% diameter. Right iliac arteries: No occlusion or significant stenosis. Left iliac arteries: No occlusion or significant stenosis. CHEST: Lungs: Lungs are clear bilaterally. No consolidation. No edema. Minimal posterior dependent atelectasis. Pleural spaces: No pleural effusion. No pneumothorax. Heart: Normal heart size. No pericardial effusion. Severe right and left coronary artery atherosclerotic calcium. ABDOMEN AND PELVIS: Liver: Diffuse moderate fatty liver change. Gallbladder and biliary ducts: Gallstone. No acute biliary tract findings. Pancreas: Pancreatic edema and peripancreatic inflammatory features consistent with acute pancreatitis. No necrotizing features. No pseudocyst or abscess evident. Spleen: The spleen is normal in size, contour and attenuation. Adrenal glands: The adrenal glands are normal in size and contour bilaterally. Kidneys and ureters: The kidneys bilaterally are unremarkable. Normal attenutation. No hydronephrosis. No calculi. Right renal lateral cortical 10 x 5 mm hyperdense focus most consistent with a cyst. This is also present 12/13/2023 on prior study without interval change. Anterior left renal cortical cyst measuring 12 mm. Stomach and bowel: Gastric morphology is unremarkable. No edema. No gastric outlet obstruction. Small bowel loops are normal in course. There is mild distension of the duodenal sweep and proximal to mid jejunum without distinct obstructing lesion. This may represent a developing ileus related to the pancreatitis. Large bowel is unremarkable in course and caliber. No obstructive features. No edema. Scattered diverticulosis without acute diverticulitis. Appendix: No evidence of appendicitis. Intraperitoneal space: Small volume free fluid in the abdomen and pelvis. Urinary bladder: Urinary bladder is unremarkable in appearance. No wall thickening. No intravesicular calculi. No intravesicular gas. Reproductive: Moderate prostate enlargement. Recommend clinical correlation. Lymph nodes: Unremarkable. No enlarged lymph nodes. Bones/joints: Degenerative thoracic spine changes. No acute skeletal findings. Lumbar spine degenerative disease. Soft tissues: Chest wall soft tissues are unremarkable. IMPRESSION: 1. Acute pancreatitis. 2. Gallstones. No acute biliary tract findings. 3. Fatty liver features. 4. Mild distension of duodenal sweep and proximal jejunal loops may represent a developing ileus secondary to the intra-abdominal inflammation. There is no distinct obstructing focus. 5. Small volume free fluid in the abdomen. 6. Prostate enlargement. 7. Degenerative thoracic and lumbar spine changes. 8. No evidence of aortic dissection or aneurysm. 9. Severe coronary artery atherosclerotic calcium. 10. Minor posterior lung base atelectasis. No acute infiltrates or edema. 11. No acute pleural change. 12. 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 See above. Labs 04/22/24 06:33 04/22/24 06:33 Labs: Laboratory Results - last 24 hr 04/21/24 21:32 WBC 10.67 RBC 4.85 Hgb 15.2 Hct 43.2 MCV 89 MCH 31.3 MCHC 35.2 RDW 12.1 Plt Count 172 MPV 9.9 Immature Gran % 0.5 Neutrophils % 85.7 Lymphocytes % 7.2 Monocytes % 5.3 Eosinophils % 0.7 Basophils % 0.6 Nucleated RBC % 0.0 Absolute Neutrophils 9.14 H Absolute Lymphocytes 0.77 L Absolute Monocytes 0.57 Absolute Eosinophils 0.08 Absolute Basophils 0.06 PT 10.4 INR 1.0 Sodium 141 Potassium 3.4 L Chloride 101 Carbon Dioxide 33.0 H Anion Gap 7.0 BUN 22 H Creatinine 1.2 Est GFR (CKD-EPI 2020) 61.90 Glucose 211 H Calcium 9.4 Magnesium 1.9 Total Bilirubin 2.39 H AST 399 H ALT 378 H Alkaline Phosphatase 90 Troponin I < 50 NT-Pro-B Natriuret Pep 45 Total Protein 7.0 Albumin 3.8 Lipase > 375 H Last Vital Signs Temp 36.3 C L 04/21/24 20:28 Pulse 58 L 04/22/24 00:01 Resp 18 04/22/24 00:10 BP 165/75 H 04/22/24 00:01 Pulse Ox 98 04/22/24 00:10 Time Spent Time spent with Patient: >75 minutes Time was spent: preparing to see the patient(eg.review tests), obtaining and/or reviewing separately otained hiistory, ordering medications,tests, procedures, indepentently interpreting results, counseling the patient and care coordination
[2024-04-22 00:50] LABS: Troponin I < 50 ng/L (< or =60)
[2024-04-22 01:36] LABS: Lipase > 375 U/L (16-77)
--- NOTE | 2024-04-22 01:57 | W.PC.ACHO ---
Registration Status: Primary Language: Preferred Language: ED Information & Data Chief Complaint Abd Prob 04/21/24 21:56 Chief Complaint Abd Prob 04/21/24 21:10 Triage Note Pt reports it feels like 04/21/24 20:28 someone is trying to rip my guts out. Pt states this feels the same as a previous episode when he was dx with a gastric ulcer. Denies black/tarry stools, denies urinary sx. Pain localized to epigastric area with some c/o abd bloating. Medical / Surgical History (Last Reviewed 04/22/24 @ 00:50 by Roanld Posey) Hypercholesterolemia Hypothyroid HTN (hypertension) BPH (benign prostatic hyperplasia) Most Recent Vital Signs Temperature 36.3 C L 04/21/24 20:28 Temperature Source Tympanic 04/21/24 22:32 Pulse 72 04/22/24 01:31 Pulse 80 04/22/24 01:40 Respiratory Rate 20 04/22/24 01:40 Respiratory Effort Normal 04/21/24 21:56 Blood Pressure 163/78 H 04/22/24 01:31 Blood Pressure Mean 106 04/22/24 01:31 Blood Pressure Position Sitting 04/21/24 20:28 Pulse Oximetry 97 04/22/24 01:40 Oxygen Delivery Method Room Air 04/21/24 20:28 Oxygen Flow Rate 0 04/21/24 20:28 Pain Level 5 04/22/24 00:33 Allergies [id number] Reductase Inhibitor Adverse Reaction (Unknown, Unverified 04/21/24 20:37) Other (See Comment) Active Medications Generic Name Dose Route Start Last Admin Trade Name Leleq PRN Reason Stop Dose Admin Iohexol 100 ml 04/21/24 22:45 04/21/24 22:43 Omnipaque 350 Mg/Ml 100 Ml Btl IJ 05/21/24 23:59 100 ml DIRECTED MARCELINO Administration Sodium Chloride 50 ml 04/21/24 23:00 04/21/24 22:50 Normal Saline - Diluent 50 Ml Vial IJ 50 ml .FOR DI USE MARCELINO Administration IV IV Catheter Type [Right Peripheral IV Antecubital] IV Catheter Gauge [Right 18 Antecubital] Diet Orders Category Date Time Status Nothing Per Oral [DIET] Nutrition 04/22/24 Breakfast Active Diagnostics 04/22/24 04/22/24 04/22/24 Range/Units 05:35 01:04 00:22 WBC Pending (4.4-10.8) 10^3/uL RBC Pending (4.36-5.78) 10^6/uL Hgb Pending (13.5-17.5) g/dL Hct Pending (40.0-50.0) % MCV Pending (80-95) fL MCH Pending (27.0-33.0) pg MCHC Pending (32.0-36.0) % RDW Pending (11.8-14.1) % Plt Count Pending (130-400) 10^3/uL MPV Pending (8.0-11.0) fL Immature Gran % % Neutrophils % % Lymphocytes % % Monocytes % % Eosinophils % % Basophils % % Nucleated RBC % (0.0-0.3) % Absolute Neutrophils (1.2-6.7) 10^3/uL Absolute Lymphocytes (1.2-3.4) 10^3/uL Absolute Monocytes (0.1-0.8) 10^3/uL Absolute Eosinophils (0.0-0.7) 10^3/uL Absolute Basophils (0.0-0.2) 10^3/uL PT Pending (9.1-11.1) sec INR Pending (0.9-1.1) Sodium Pending (136-145) mmol/L Potassium Pending (3.5-5.1) mmol/L Chloride Pending (98-107) mmol/L Carbon Dioxide Pending (21.0-32.0) mmol/L Anion Gap Pending (3-11) mmol/L BUN Pending (7-18) mg/dL Creatinine Pending (0.70-1.30) mg/dL Est GFR (CKD-EPI 2020) Pending (mL/min/1.73m2) Glucose Pending (74-106) mg/dL Calcium Pending (8.5-10.1) mg/dL Magnesium Pending (1.8-2.4) mg/dL Total Bilirubin Pending (0.2-1.0) mg/dL Conjugated Bilirubin Pending AST Pending (15-37) U/L ALT Pending (16-63) U/L Alkaline Phosphatase Pending (46-116) U/L Troponin I Pending < 50 (< or =60) ng/L NT-Pro-B Natriuret Pep (<300) pg/mL Total Protein Pending (6.4-8.2) g/dL Albumin Pending (3.4-5.0) g/dL Triglycerides Pending Total Cholesterol Pending LDL Cholesterol, Calc Pending HDL Cholesterol Pending Lipase Pending (16-77) U/L TSH Pending 04/21/24 04/21/24 Range/Units 21:32 21:32 WBC 10.67 (4.4-10.8) 10^3/uL RBC 4.85 (4.36-5.78) 10^6/uL Hgb 15.2 (13.5-17.5) g/dL Hct 43.2 (40.0-50.0) % MCV 89 (80-95) fL MCH 31.3 (27.0-33.0) pg MCHC 35.2 (32.0-36.0) % RDW 12.1 (11.8-14.1) % Plt Count 172 (130-400) 10^3/uL MPV 9.9 (8.0-11.0) fL Immature Gran % 0.5 % Neutrophils % 85.7 % Lymphocytes % 7.2 % Monocytes % 5.3 % Eosinophils % 0.7 % Basophils % 0.6 % Nucleated RBC % 0.0 (0.0-0.3) % Absolute Neutrophils 9.14 H (1.2-6.7) 10^3/uL Absolute Lymphocytes 0.77 L (1.2-3.4) 10^3/uL Absolute Monocytes 0.57 (0.1-0.8) 10^3/uL Absolute Eosinophils 0.08 (0.0-0.7) 10^3/uL Absolute Basophils 0.06 (0.0-0.2) 10^3/uL PT 10.4 (9.1-11.1) sec INR 1.0 (0.9-1.1) Sodium 141 (136-145) mmol/L Potassium 3.4 L (3.5-5.1) mmol/L Chloride 101 (98-107) mmol/L Carbon Dioxide 33.0 H (21.0-32.0) mmol/L Anion Gap 7.0 (3-11) mmol/L BUN 22 H (7-18) mg/dL Creatinine 1.2 (0.70-1.30) mg/dL Est GFR (CKD-EPI 2020) 61.90 (mL/min/1.73m2) Glucose 211 H (74-106) mg/dL Calcium 9.4 (8.5-10.1) mg/dL Magnesium 1.9 (1.8-2.4) mg/dL Total Bilirubin 2.39 H (0.2-1.0) mg/dL Conjugated Bilirubin AST 399 H (15-37) U/L ALT 378 H (16-63) U/L Alkaline Phosphatase 90 (46-116) U/L Troponin I < 50 (< or =60) ng/L NT-Pro-B Natriuret Pep 45 (<300) pg/mL Total Protein 7.0 (6.4-8.2) g/dL Albumin 3.8 (3.4-5.0) g/dL Triglycerides Total Cholesterol LDL Cholesterol, Calc HDL Cholesterol Lipase > 375 H > 375 H (16-77) U/L TSH Intake and Output - 24 Hour Total 04/21/24 20:25 thru 04/21/24 23:22 Intake Total 500 Balance 500 Weight 104.326 kg Intake: IV 500 Falls Risk Assessment History of Falls No History 04/21/24 21:56 Contributing Factors No Factors 04/21/24 21:56 Ambulatory Aids Independent 04/21/24 21:56 Tubes/Lines None 04/21/24 21:56 Gait Evaluation No gait disturbance 04/21/24 21:56 Cognition No cognitive impairment 04/21/24 21:56 Fall Total Score 0 04/21/24 21:56 Level of Risk Standard/Low Risk 04/21/24 21:56 Problems (Last Reviewed 04/22/24 @ 00:50 by Ronald Posey) Arteriosclerotic vascular disease (Chronic) Hypokalemia (Acute) Hypertriglyceridemia (Chronic) Cholelithiasis (Acute) Elevated liver function tests (Acute) Acute pancreatitis (Acute) v v v v v v v v v Sending and/or Receiving Nurses: Please use comment section below to note any information pertinent to the patient hand-off not included above. Information / Comments: Pt presented to ED in severe pain 8/10 radiating to his back and chest; nauseated, no vomiting. LBM 04/21/24, current pain is 4/10 following morphine administration and fluid bolus. Report received from:Grayson Brooks RN
[2024-04-22] MEDS: POTASSIUM CHLORIDE/0.9% NACL 1,000 ML 150 MEQ IV ×3 (02:58→21:42)
[2024-04-22] MEDS: MORPHine 4 MG/ML SYR IVP ×3 (02:58→07:53)
[2024-04-22] MEDS: Heparin 5,000 UNITS/ML VIAL 5000 UNITS SC ×2 (05:48→21:49)
[2024-04-22 06:42] LABS: HGB 14.3 g/dL (13.5-17.5); MCH 31.4 pg (27.0-33.0); MCHC 35.8 % (32.0-36.0); MCV 88 fL (80-95); MPV 10.5 fL (8.0-11.0); Platelet Count 174 10^3/uL (130-400); RBC 4.56 10^6/uL (4.36-5.78); RDW 12.3 % (11.8-14.1); RDW-SD 39.5 fL; WBC 7.98 10^3/uL (4.4-10.8)
[2024-04-22 06:51] LABS: Prothrombin Time 10.5 sec (9.1-11.1)
[2024-04-22 07:01] LABS: BUN 21 mg/dL (7-18); Calcium 8.7 mg/dL (8.5-10.1); Chloride 105 mmol/L (98-107); Estimated GFR 77.04 (mL/min/1.73m2); Glucose 166 mg/dL (74-106); Magnesium 1.9 mg/dL (1.8-2.4); Potassium 3.6 mmol/L (3.5-5.1); Sodium 142 mmol/L (136-145); Troponin I < 50 ng/L (< or =60)
[2024-04-22 07:04] LABS: ALT 727 U/L (16-63); AST 561 U/L (15-37); Albumin 3.5 g/dL (3.4-5.0); Alkaline Phosphatase 97 U/L (46-116); Bilirubin, Direct 2.3 mg/dL (0.0-0.2); Bilirubin, Total 3.17 mg/dL (0.2-1.0); Total Protein 6.4 g/dL (6.4-8.2)
[2024-04-22 07:06] LABS: Calculated LDL 74 mg/dL (<100); Cholesterol 138 mg/dL (<200); HDL Cholesterol 51 mg/dL (40-60); Triglyceride 66 mg/dL (<150)
[2024-04-22 07:08] LABS: TSH (W/Ref FT4) 4.23 uIU/mL (0.36-3.74)
[2024-04-22 07:11] LABS: Anion Gap 10.2 mmol/L (3-11); CO2 26.8 mmol/L (21.0-32.0)
[2024-04-22 07:44] LABS: FREE T4 1.31 ng/dL (0.76-1.46)
[2024-04-22] MEDS: Normal Saline Flush 10 ML SYR IVP ×2 (07:53→17:25)
[2024-04-22 07:55] LABS: Lipase > 375 U/L (16-77)
--- NOTE | 2024-04-22 08:00 | DI.US_ITS ---
Exam(s) US ABDOMEN LIMITED EXAM: US ABDOMEN LIMITED CLINICAL HISTORY: Cholelithiasis with acute pancreatitis TECHNIQUE: Ultrasound abdomen performed using standard protocol. COMPARISON: CT CT THORAX ABD/PEL CTA from 04/21/2024 FINDINGS: Some perihepatic ascites is noted. LIVER: Uniformly hyperechoic indicating steatosis. There no discrete focal hepatic lesions. No obvi ous dilated intrahepatic ducts. GALLBLADDER/BILIARY: There are calculi and sludge in the gallbladder lumen. Mild wall thickening is noted and there is a small amount of pericholecystic fluid. The common hepatic duct isupper normal diameter, measuring 6mm at the level of jonas hepatis. No obv ious calculi seen within the CBD although the lower part of the CBD is obscured by bowel gas. PANCREAS: Incompletely visualized due to overlying bowel gas. No evidence of pancreatic mass. No ob vious dilatation of the pancreatic duct. No formed peripancreatic fluid collection. RIGHT KIDNEY:No evidence of solid mass, calculus, nor hydronephrosis. Small benign 1.2 cm cyst noted which does not require follow-up. IMPRESSION: 1. Cholelithiasis and evidence of acute cholecystitis. CBD diameter is upper normal. There are no obvious calculi seen in the upper-mid CBD. Lower CBD is not able to be seen due to overlying bowel g as. 2. In this patient who as pancreatitis on recent CT scan there is no evidence of formed pseudocyst w ithin nor around the pancreas. The pancreatic duct is not dilated. 3. There is some perihepatic ascites which is most probably related to the acute pancreatitis. DATA REPOSITORY:
--- NOTE | 2024-04-22 10:50 | INITIAL_ITS ---
Date of service: 04/22/24 Time of Service: 10:50 Care Management Initial Assmt Initial Assessment Reason for Hospitalization: Acute pancreatitis Functional Status/Living Situation Patient Presentation: Michael was lying in bed visiting with his and daughter when CM met with him. Michael was very sleepy and kept dozing off during the conversation. He was admitted with pancreatitis and also has cholelithiasis and cholecystitis. At this time his plan of care is unclear and a surgical consult has been requested. Michael remains NPO and is receiving prn pain medication as needed. Town of Residence: [place] Resides with: Spouse (Kasie) Significant Other/Family: Local (daughter and son angelika) Employment Status: Retired Medications Medication Management: No Issues/Barriers identified Advance Directives Advance Directives: Do you have an Advance Directive: Y 11/18/13 20:29 AD On File at [facility]: N 11/18/13 20:29 Date Asked 04/22/24 04/22/24 01:35 AD Date Reviewed COLST On File at [facility] COLST Date Scanned Code Status Resuscitation Status Full Code Portal Pt does not currently have a portal and education provided: No Insurance Coverage/Financial Issues Insurance: [facility] Care Team Visit Care Team Role Provider Type Chan Martinez Primary Care Provider [facility] STAFF PHYSICIAN Dina Cobian, DO Other Providers OSTEOPATHIC DOCTOR Michael Martin MD Emergency Provider [facility] STAFF PHYSICIAN Ronald Posey Admit Provider [facility] STAFF PHYSICIAN Attending Provider Discharge Potential Discharge Needs: PCP F/U Appt Anticipated Barriers to Discharge: None Identified Patient/Family Education Needs: Review discharge instructions, discuss Ask Me Three Transportation: Private vehicle Plan: Anticipate Michael will be discharged home, possibly with new home health services, when medically cleared. He will follow up with his PCP and plan of care and transport with family. PFSH All Active Problems (Updated 04/22/24 @ 01:29 by Ronald Posey) Arteriosclerotic vascular disease (Chronic) Hypokalemia (Acute) Hypertriglyceridemia (Chronic) Cholelithiasis (Acute) Elevated liver function tests (Acute) Acute pancreatitis (Acute) Epigastric abdominal pain (Acute) Arthritis of right shoulder region (Acute) Left rotator cuff tear (Acute ~12/09/22) Shoulder pain (Acute) Closed head injury with concussion (Acute) Hematoma of left parietal scalp (Acute) Chest wall contusion (Acute) Medical History Hypercholesterolemia Hypothyroid HTN (hypertension) BPH (benign prostatic hyperplasia) Social History Smoking/Tobacco Use Status: Never Smoking risk assessment performed?: Yes Alcohol Intake: current Alcohol Intake frequency: a few times a month Drug use: Never Substance use type: does not use Housing: house Current gender identity: male Do you feel safe at home: Yes Do you feel safe in your relationship?: Yes Additional Social history: at bedside SDOH(Care Management) Screening Will the Patient Participate in the Screening?: Yes Do you worry about having a steady place to live?: no Problems where you live: no known problems In the past 12 months, have you had to go without electric, gas, oil or water in your home?: no Have you or anyone in your house had to go without enough food to eat?: no Has lack of transportation kept you from medical appointments or from doing things needed for daily living?: no Has anyone in your support network made you feel unsafe for any reason?: no
[2024-04-22] MEDS: Finasteride 5 MG TAB PO (11:19)
[2024-04-22] MEDS: Aspirin E.C. 81 MG TABEC PO (11:19)
[2024-04-22] MEDS: amLODIPine 10 MG TAB PO (11:19)
[2024-04-22] MEDS: Lisinopril 20 MG TAB PO (11:19)
[2024-04-22] MEDS: Gabapentin 100 MG CAP PO (11:20)
[2024-04-22] MEDS: LORazepam 1 MG TAB PO (14:35)
--- NOTE | 2024-04-22 15:46 | W.SURGCON ---
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 I believe this issue should be addressed with an arteriogram and intervention prior to any abdominal surgical procedures. The patient may need to be transferred to a center of higher level of care for this type of workup and intervention. (2) Acute pancreatitis: Status: Acute Assessment and plan: The patient's history, physical exam and imaging studies are suspicious for gallstone pancreatitis. MRCP is pending to evaluate the bile ducts for obstruction with biliary stones. If biliary stones in the common bile duct are present the patient will need ERCP at a center at high level of care. If stones are not present the patient should still be evaluated at a higher level center of care for possible intervention of severe celiac artery stenosis prior to cholecystectomy. Continue medical management at this time with IV fluid resuscitation and pain control. We added IV Zosyn for possible biliary tract obstruction. It was noted on today's labs that the patient total bilirubin, conjugated bilirubin and liver function enzymes are elevated compared to admission suggestive of biliary tract obstruction. Maintain n.p.o. Gentle IV fluid resuscitation. Qualifiers: Pancreatitis type: biliary Acute pancreatitis complication: no infection or necrosis Qualified Code(s): K85.10 - Biliary acute pancreatitis without necrosis or infection History of Present Illness Narrative: This patient is a 78-year-old male with past medical history of hypertension, hypothyroidism and close head injury and arthritis of the right shoulder. He presented to the emergency department overnight with complaints of postprandial abdominal pain that radiated to the chest. Cardiac workup was negative. The patient did have a CTA scan of the abdomen pelvis which was suggestive of severe celiac artery stenosis and gallbladder pancreatitis. White cell count on presentation was 10. AST ALT 399 and 378. Bilirubin total 2.3. Lipase greater than 375. As of note the patient was also found to have a hypokalemia. The patient was subsequently admitted with IV fluid resuscitation, potassium replacement, n.p.o. and ultrasound of the abdomen. Ultrasound the abdomen today demonstrated dilated common bile duct of 6 mm, gallbladder wall thickening with pericholecystic fluid. There was sludge and gallstones within the lumen of the gallbladder. There is an MRCP pending. Today, the patient is resting in bed. He states that the pain comes and goes and is only minimally alleviated with pain medication the patient denies any vomiting.. Review of Systems Gastrointestinal Gastrointestinal: Reports system reviewed and no additional complaints, except as documented PFSH All Active Problems (Updated 04/22/24 @ 01:29 by Ronald Posey) Arteriosclerotic vascular disease (Chronic) Hypokalemia (Acute) Hypertriglyceridemia (Chronic) Cholelithiasis (Acute) Elevated liver function tests (Acute) Acute pancreatitis (Acute) Epigastric abdominal pain (Acute) Arthritis of right shoulder region (Acute) Left rotator cuff tear (Acute ~12/09/22) Shoulder pain (Acute) Closed head injury with concussion (Acute) Hematoma of left parietal scalp (Acute) Chest wall contusion (Acute) Medical History Hypercholesterolemia Hypothyroid HTN (hypertension) BPH (benign prostatic hyperplasia) Social History Smoking/Tobacco Use Status: Never Smoking risk assessment performed?: Yes Alcohol Intake: current Alcohol Intake frequency: a few times a month Drug use: Never Substance use type: does not use Housing: house Current gender identity: male Do you feel safe at home: Yes Do you feel safe in your relationship?: Yes Additional Social history: at bedside Exam Const General: cooperative and no acute distress Nutritional Appearance: well nourished Eyes General: appearance normal, both eyes and all related structures Sclera: sclerae normal Resp Effort & Inspection: normal respiratory effort and able to speak in complete sentences Auscultation: clear to auscultation bilaterally Cardio Jugular venous pressure: no JVD Rate: regular rate Rhythm: regular rhythm GI Inspection: visible herniation Palpation: soft Percussion: normal to percussion Auscultation: normal bowel sounds Other: Small diastases recti present the patient has generalized nonspecific abdominal tenderness with palpation Extrem General: normal to inspection, no calf tenderness and edema (No edema) Results Last Vital Signs Temp 98.2 F 04/22/24 11:25 Pulse 70 04/22/24 11:25 Resp 19 04/22/24 11:25 BP 206/90 H 04/22/24 11:25 Pulse Ox 97 04/22/24 11:25 Labs 04/22/24 06:33 04/22/24 06:33 Labs: Laboratory Results - last 24 hr 04/21/24 04/21/24 04/22/24 21:32 21:32 00:22 WBC 10.67 RBC 4.85 Hgb 15.2 Hct 43.2 MCV 89 MCH 31.3 MCHC 35.2 RDW 12.1 Plt Count 172 MPV 9.9 Immature Gran % 0.5 Neutrophils % 85.7 Lymphocytes % 7.2 Monocytes % 5.3 Eosinophils % 0.7 Basophils % 0.6 Nucleated RBC % 0.0 Absolute Neutrophils 9.14 H Absolute Lymphocytes 0.77 L Absolute Monocytes 0.57 Absolute Eosinophils 0.08 Absolute Basophils 0.06 PT 10.4 INR 1.0 Sodium 141 Potassium 3.4 L Chloride 101 Carbon Dioxide 33.0 H Anion Gap 7.0 BUN 22 H Creatinine 1.2 Est GFR (CKD-EPI 2020) 61.90 Glucose 211 H Calcium 9.4 Magnesium 1.9 Total Bilirubin 2.39 H Conjugated Bilirubin AST 399 H ALT 378 H Alkaline Phosphatase 90 Troponin I < 50 < 50 NT-Pro-B Natriuret Pep 45 Total Protein 7.0 Albumin 3.8 Triglycerides Total Cholesterol LDL Cholesterol, Calc HDL Cholesterol Lipase > 375 H > 375 H TSH Free T4 04/22/24 06:33 WBC 7.98 RBC 4.56 Hgb 14.3 Hct 40.0 MCV 88 MCH 31.4 MCHC 35.8 RDW 12.3 Plt Count 174 MPV 10.5 Immature Gran % Neutrophils % Lymphocytes % Monocytes % Eosinophils % Basophils % Nucleated RBC % Absolute Neutrophils Absolute Lymphocytes Absolute Monocytes Absolute Eosinophils Absolute Basophils PT 10.5 INR 1.0 Sodium 142 Potassium 3.6 Chloride 105 Carbon Dioxide 26.8 Anion Gap 10.2 BUN 21 H Creatinine 1.0 Est GFR (CKD-EPI 2020) 77.04 Glucose 166 H Calcium 8.7 Magnesium 1.9 Total Bilirubin 3.17 H Conjugated Bilirubin 2.3 H AST 561 H ALT 727 H Alkaline Phosphatase 97 Troponin I < 50 NT-Pro-B Natriuret Pep Total Protein 6.4 Albumin 3.5 Triglycerides 66 Total Cholesterol 138 LDL Cholesterol, Calc 74 HDL Cholesterol 51 Lipase > 375 H TSH 4.23 H Free T4 1.[address] scan - chest: report reviewed CT scan - pelvis: report reviewed and other (I personally reviewed the CTA of the abdomen pelvis with the radiologist Dr. Lozoya. He pointed out to me significant atherosclerosis at the origin of the celiac artery. He also noted 1 cm distal to the atherosclerosis narrowing of the celiac artery with the artery being less than 15% patent) Abdominal ultrasound report/results: report reviewed
[2024-04-22] MEDS: PIPERACILLIN/TAZO 3.375 GM in Normal Saline 50 ML IVPB ×2 (16:59→22:45)
[2024-04-22] MEDS: HYDROmorphone 2 MG/ML SYR 1 MG IVP (17:25)
[2024-04-22] MEDS: Tamsulosin 0.4 MG CAPCR PO (20:30)
[2024-04-23] VITALS (7 sets, daily range): BP systolic 164–183; BP diastolic 74–102; PULSE 84–99; RESP 17–20; TEMP 37.3–38.2; O2SAT 92–98
[2024-04-23] MEDS: HYDROmorphone 2 MG/ML SYR 1 MG IVP ×3 (01:41→17:52)
[2024-04-23] MEDS: PIPERACILLIN/TAZO 3.375 GM in Normal Saline 50 ML IVPB ×4 (04:50→22:28)
[2024-04-23] MEDS: Heparin 5,000 UNITS/ML VIAL 5000 UNITS SC ×3 (05:32→22:27)
[2024-04-23] MEDS: Levothyroxine 75 MCG TAB PO (05:34)
[2024-04-23 07:04] LABS: HCT 42.9 % (40.0-50.0); HGB 14.8 g/dL (13.5-17.5); MCH 31.4 pg (27.0-33.0); MCHC 34.5 % (32.0-36.0); MCV 91 fL (80-95); MPV 10.4 fL (8.0-11.0); Platelet Count 150 10^3/uL (130-400); RBC 4.72 10^6/uL (4.36-5.78); RDW 12.7 % (11.8-14.1); RDW-SD 41.3 fL; WBC 10.34 10^3/uL (4.4-10.8)
[2024-04-23] MEDS: POTASSIUM CHLORIDE/0.9% NACL 1,000 ML 150 MEQ IV ×3 (07:10→22:28)
[2024-04-23 07:24] LABS: ALT 566 U/L (16-63); AST 210 U/L (15-37); Albumin 3.2 g/dL (3.4-5.0); Alkaline Phosphatase 114 U/L (46-116); BUN 17 mg/dL (7-18); Calcium 8.5 mg/dL (8.5-10.1); Chloride 105 mmol/L (98-107); Estimated GFR 77.04 (mL/min/1.73m2); Glucose 134 mg/dL (74-106); Potassium 3.4 mmol/L (3.5-5.1); Sodium 142 mmol/L (136-145); Total Protein 6.2 g/dL (6.4-8.2)
[2024-04-23] MEDS: Normal Saline Flush 10 ML SYR IVP ×4 (07:42→17:51)
--- NOTE | 2024-04-23 08:42 | PDOC.CMPRO ---
Date of service: 04/23/24 Time of Service: 08:42 Care Management Progress Note Progress Note Text Progress Note Text: Michael was lying in bed visiting with his when CM met with him. He was much more awake than yesterday although he stated he is still sleepy. Michael is waiting for transfer to a tertiary care center, likely [facility], for an ERCP. He has stenosis of the celiac artery and, per the surgeon, it may need to be addressed before any abdominal surgical interventions are undertaken. Michael informed CM that he has not eaten since Monday and requested at least a popsicle. CM discussed with the provider, but based on the degree of abdominal pain he has and the fact he may get transferred for an ERCP, he will remain NPO. Discharge Potential Discharge Needs: Other (transfer to tertiary care) Anticipated Barriers to Discharge: Bed availability Patient/Family Education Needs: Review discharge instructions, discuss Ask Me Three Transportation: Other (to be determined by disposition) Plan: Michael likely needs surgery for the cholecystitis and cholelithiasis. Because he has been found to have significant stenosis of his celiac artery, the providers feel he should be transferred to a tertiary care center. Since [facility], [facility] to determine bed availability. CM will follow and continue to assess for discharge needs. SDOH(Care Management) Screening Will the Patient Participate in the Screening?: Yes Do you worry about having a steady place to live?: no Problems where you live: no known problems In the past 12 months, have you had to go without electric, gas, oil or water in your home?: no Have you or anyone in your house had to go without enough food to eat?: no Has lack of transportation kept you from medical appointments or from doing things needed for daily living?: no Has anyone in your support network made you feel unsafe for any reason?: no
--- NOTE | 2024-04-23 09:12 | W.PM.PROGNOT ---
Date of Service Date of service: 04/23/24 Time of Service: 09:13 Assessment and Plan Assessment and plan (1) Arteriosclerotic vascular disease: Status: Chronic Assessment and plan: I personally reviewed the CTA with the radiologist. He demonstrated on the films a moderate plaque at the celiac artery origin. there is narrowing of the lumen of the celiac artery one cm distal to it's origin. the lumen is less than 15% patent. We recommend evaluation at a center of higher care by vascular surgery or interventional radiology for possible intervention prior to cholecystectomy. (2) Choledocholithiasis with acute cholecystitis: Status: Acute Assessment and plan: MRI demonstrated multiple stones in the common bile duct. This appears to be causing a partial obstruction. We recommend patient by evaluated at higher center of care for ERCP by GI specialist. (3) Acute pancreatitis: Status: Acute Assessment and plan: Gallstone pancreatitis. Transfer to higher center of care for ERCP and intervention for celiac artery stenosis. medical management for gallstone pancreatitis and cholecystectomy when appropriate. Qualifiers: Pancreatitis type: biliary Acute pancreatitis complication: no infection or necrosis Qualified Code(s): K85.10 - Biliary acute pancreatitis without necrosis or infection Subjective Subjective Patient reports: no new complaints and still having pain Interval history since last seen: pain unchanged. no acute events overnight Exam GI Inspection: distended Palpation: firm Auscultation: hypoactive bowel sounds Other: no percussion or rebound tenderness Objective Last Vital Signs Temp 99.1 F 04/23/24 03:12 Pulse 85 04/23/24 03:12 Resp 17 04/23/24 03:12 BP 167/79 H 04/23/24 03:12 Pulse Ox 95 04/23/24 03:12 Laboratory Results - last 24 hr 04/23/24 06:13 WBC 10.34 RBC 4.72 Hgb 14.8 Hct 42.9 MCV 91 MCH 31.4 MCHC 34.5 RDW 12.7 Plt Count 150 MPV 10.4 Sodium 142 Potassium 3.4 L Chloride 105 Carbon Dioxide 25.0 Anion Gap 12.0 H BUN 17 Creatinine 1.0 Est GFR (CKD-EPI 2020) 77.04 Glucose 134 H Calcium 8.5 Total Bilirubin 3.70 H AST 210 H ALT 566 H Alkaline Phosphatase 114 Total Protein 6.2 L Albumin 3.2 L Time Spent with Patient Time Spent with Patient: 25-34 minutes Time was spent: preparing to see the patient(eg.review tests), indepentently interpreting results and counseling the patient
[2024-04-23] MEDS: Lisinopril 20 MG TAB PO (10:06)
[2024-04-23] MEDS: Finasteride 5 MG TAB PO (10:06)
[2024-04-23] MEDS: Gabapentin 100 MG CAP PO (10:07)
[2024-04-23] MEDS: Aspirin E.C. 81 MG TABEC PO (10:07)
[2024-04-23] MEDS: amLODIPine 10 MG TAB PO (10:07)
[2024-04-23 13:14] LABS: Lab Add On Test DONE
[2024-04-23 13:34] LABS: Magnesium 1.8 mg/dL (1.8-2.4)
[2024-04-23] MEDS: POTASSIUM CHLORIDE 10 MEQ/100 ML BAG 100 MEQ IVINF ×2 (13:34→14:48)
[2024-04-23] MEDS: Acetaminophen 325 MG TAB PO ×2 (15:04→20:52)
[2024-04-23] MEDS: Ondansetron 4 MG/2 ML VIAL IVP (15:07)
--- NOTE | 2024-04-23 15:23 | W.PM.PROGNOT ---
Date of Service Date of service: 04/23/24 Time of Service: 15:23 Assessment and Plan Assessment and plan (1) Acute pancreatitis: Status: Acute Assessment and plan: Gallstone pancreatitis. attemps to transfer to [facility] for ERCP and intervention for celiac artery stenosis. Calls placed to [facility] and [facility] both who have declined patient. Also [facility]. Also discussed case with covering surgeon to help facilitate transfer to [facility] will continue to try to find tertiary care center to transfer to continue medical management for gallstone pancreatitis and cholecystectomy when appropriate. on zosyn no white count, fever or evidence of abscess. continue NPO, clears only if tolerated pain management pulmonary toilet and ambulate IV fluids. Qualifiers: Acute pancreatitis complication: no infection or necrosis Pancreatitis type: biliary Qualified Code(s): K85.10 - Biliary acute pancreatitis without necrosis or infection (2) Choledocholithiasis with acute cholecystitis: Status: Acute Assessment and plan: MRI demonstrated multiple stones in the common bile duct. This appears to be causing a partial obstruction. Surgery following and recommends patient by evaluated at [facility] for ERCP by GI specialist. (3) Arteriosclerotic vascular disease: Status: Chronic Assessment and plan: Surgeon reviewed the CTA with the radiologist. He demonstrated on the films a moderate plaque at the celiac artery origin. there is narrowing of the lumen of the celiac artery one cm distal to it's origin. the lumen is less than 15% patent. recommendation for evaluation at a center of higher care by vascular surgery or interventional radiology for possible intervention prior to cholecystectomy. Subjective Subjective Patient reports: still having pain, voiding w/o difficulty and afebrile; denies tolerating liquids well or shortness of breath Exam Const General: cooperative and ill appearing acutely Nutritional Appearance: overweight Orientation: alert, awake and oriented x3 HENMT Head: normal to inspection, normocephalic and atraumatic Face and sinus: normal facial exam Mouth: oral mucosae normal Eyes General: appearance normal, both eyes and all related structures Neck Neck: normal visual inspection and full ROM Chest Chest: normal inspection of the chest Resp Effort & Inspection: normal respiratory effort Cardio Rate: regular rate Rhythm: regular rhythm GI Inspection: distended Palpation: firm and tender Auscultation: hypoactive bowel sounds Skin General skin exam: no rashes or lesions noted Neuro General: patient alert, patient awake and patient oriented x3 Cognition: normal cognition Speech: speech normal Motor: muscle tone normal throughout Extrem General: normal to inspection, full ROM and no pedal edema Objective Last Vital Signs Temp 38.2 C H 04/23/24 15:04 Pulse 99 H 04/23/24 15:03 Resp 20 04/23/24 15:03 BP 170/102 H 04/23/24 15:03 Pulse Ox 97 04/23/24 15:03 Laboratory Results - last 24 hr 04/23/24 06:13 WBC 10.34 RBC 4.72 Hgb 14.8 Hct 42.9 MCV 91 MCH 31.4 MCHC 34.5 RDW 12.7 Plt Count 150 MPV 10.4 Sodium 142 Potassium 3.4 L Chloride 105 Carbon Dioxide 25.0 Anion Gap 12.0 H BUN 17 Creatinine 1.0 Est GFR (CKD-EPI 2020) 77.04 Glucose 134 H Calcium 8.5 Magnesium 1.8 Total Bilirubin 3.70 H AST 210 H ALT 566 H Alkaline Phosphatase 114 Total Protein 6.2 L Albumin 3.2 L Add-On Test Request DONE Time Spent with Patient Time Spent with Patient: >50 minutes Time was spent: preparing to see the patient(eg.review tests), obtaining and/or reviewing separately otained hiistory, ordering medications,tests, procedures, referring, communicating with other health career consultant and indepentently interpreting results
[2024-04-23] MEDS: Tamsulosin 0.4 MG CAPCR PO (20:43)
[2024-04-24] VITALS (7 sets, daily range): BP systolic 132–180; BP diastolic 73–104; PULSE 79–91; RESP 17–22; TEMP 37.1–37.6; O2SAT 92–96
[2024-04-24] MEDS: HYDROmorphone 2 MG/ML SYR 1 MG IVP ×7 (01:14→22:53)
[2024-04-24] MEDS: Polyethylene Glycol 3350 17 GM PACKET PO (01:19)
[2024-04-24] MEDS: PIPERACILLIN/TAZO 3.375 GM in Normal Saline 50 ML IVPB ×4 (03:56→22:39)
[2024-04-24] MEDS: Acetaminophen 325 MG TAB PO ×4 (03:56→20:23)
[2024-04-24] MEDS: Heparin 5,000 UNITS/ML VIAL 5000 UNITS SC ×3 (05:47→22:40)
[2024-04-24] MEDS: Levothyroxine 75 MCG TAB PO (05:48)
[2024-04-24] MEDS: POTASSIUM CHLORIDE/0.9% NACL 1,000 ML 150 MEQ IV ×3 (05:48→22:40)
[2024-04-24 06:55] LABS: Abs Immature Grans 0.08 10^3/uL (0.0-0.06); Absolute Basophil Count 0.03 10^3/uL (0.0-0.2); Absolute Eosinophil Count 0.06 10^3/uL (0.0-0.7); Absolute Lymphocyte Count 0.62 10^3/uL (1.2-3.4); Absolute Neutrophil Count 7.79 10^3/uL (1.2-6.7); Basophils % 0.3 %; Eosinophils % 0.6 %; HCT 37.2 % (40.0-50.0); Immature Grans % 0.8 %; Lymphocytes % 6.5 %; MCH 31.3 pg (27.0-33.0); MCHC 33.9 % (32.0-36.0); MCV 92 fL (80-95); Monocytes % 9.5 %; Neutrophils % 82.3 %; Platelet Count 140 10^3/uL (130-400); RBC 4.03 10^6/uL (4.36-5.78); RDW 12.7 % (11.8-14.1); RDW-SD 43.2 fL; WBC 9.48 10^3/uL (4.4-10.8)
[2024-04-24 06:58] LABS: HGB 12.6 g/dL (13.5-17.5)
[2024-04-24] MEDS: Gabapentin 100 MG CAP PO (08:21)
[2024-04-24] MEDS: Lisinopril 20 MG TAB PO (08:21)
[2024-04-24] MEDS: amLODIPine 10 MG TAB PO (08:21)
[2024-04-24] MEDS: Aspirin E.C. 81 MG TABEC PO (08:21)
[2024-04-24] MEDS: Finasteride 5 MG TAB PO (08:21)
--- NOTE | 2024-04-24 08:39 | PDOC.CMPRO ---
Date of service: 04/24/24 Time of Service: 08:39 Care Management Progress Note Progress Note Text Progress Note Text: Michael was sitting up in bed visiting with his and daughter when CM met with him. He is still waiting for a bed at a [place] tertiary care hospital for an ERCP and possible surgery to remove his GB. CM contacted the [place] hospitals in [place], [place] and [facility]. The [place] in [facility] has no beds and CM needed to leave a message at the other facilities. Michael's diet order has been changed from NPO to clear liquids, which he is tolerating. His LFTs and lipase are coming down however he still has pain ands is requiring IV Dialudid to control it. Discharge Potential Discharge Needs: Other (transfer to tertiary care) Anticipated Barriers to Discharge: Bed availability Patient/Family Education Needs: Review discharge instructions, discuss Ask Me Three Transportation: EMS Plan: Michael is waiting to be transferred to a tertiary care facility for further evaluation and treatment of his pancreatitis and biliary disease. Dr. Robb attempted transfer to [facility] but was unable to get an accepting physician. CM also reached out to several [place] hospitals with no success. CM will follow and continue to assess for discharge planning needs. SDOH(Care Management) Screening Will the Patient Participate in the Screening?: Yes Do you worry about having a steady place to live?: no Problems where you live: no known problems In the past 12 months, have you had to go without electric, gas, oil or water in your home?: no Have you or anyone in your house had to go without enough food to eat?: no Has lack of transportation kept you from medical appointments or from doing things needed for daily living?: no Has anyone in your support network made you feel unsafe for any reason?: no
[2024-04-24] MEDS: Docusate Sodium 100 MG CAP PO (08:42)
[2024-04-24] MEDS: Milk of Magnesia 30 ML CUP PO (08:43)
[2024-04-24] MEDS: Normal Saline Flush 10 ML SYR IVP ×3 (09:44→20:25)
[2024-04-24 10:50] LABS: ALT 330 U/L (16-63); AST 79 U/L (15-37); Albumin 2.9 g/dL (3.4-5.0); Alkaline Phosphatase 97 U/L (46-116); Anion Gap 8.2 mmol/L (3-11); BUN 19 mg/dL (7-18); Bilirubin, Total 2.53 mg/dL (0.2-1.0); CO2 25.8 mmol/L (21.0-32.0); CREATININE 0.9 mg/dL (0.70-1.30); Calcium 8.1 mg/dL (8.5-10.1); Chloride 108 mmol/L (98-107); Estimated GFR 87.42 (mL/min/1.73m2); Glucose 132 mg/dL (74-106); Potassium 3.7 mmol/L (3.5-5.1); Sodium 142 mmol/L (136-145); Total Protein 5.5 g/dL (6.4-8.2)
--- NOTE | 2024-04-24 11:28 | W.PM.PROGNOT ---
Date of Service Date of service: 04/24/24 Time of Service: 10:00 Assessment and Plan Assessment and plan (1) Adynamic ileus: Status: Acute Assessment and plan: suspect patient as an ileus secondary to acute pancreatitis and associated inflammation patient was given stool softener this am per nursing (2) Arteriosclerotic vascular disease: Status: Chronic Assessment and plan: appears stable requires further evaluation by vascular surgery request to [facility] requested for this (3) Choledocholithiasis with acute cholecystitis: Status: Acute Assessment and plan: Total bilirubin andLFTs are trending downwards. perhaps the stones are passing or only a partial obstruction is present patient should be evaluated by GI team for possible ERCP. transfer to [facility] pending. cholecystectomy when appropriate (4) Acute pancreatitis: Status: Acute Assessment and plan: continue medical management Qualifiers: Pancreatitis type: biliary Acute pancreatitis complication: no infection or necrosis Qualified Code(s): K85.10 - Biliary acute pancreatitis without necrosis or infection Subjective Subjective Patient reports: no new complaints, still having pain and no bowel movement Exam GI Inspection: distended Palpation: firm Auscultation: abnormal bowel sounds Objective Last Vital Signs Temp 98.8 F 04/24/24 08:01 Pulse 91 H 04/24/24 08:01 Resp 17 04/24/24 08:01 BP 160/91 H 04/24/24 08:01 Pulse Ox 96 04/24/24 08:01 Laboratory Results - last 24 hr 04/23/24 04/24/24 06:13 06:29 WBC 9.48 RBC 4.03 L Hgb 12.6 L D Hct 37.2 L MCV 92 MCH 31.3 MCHC 33.9 RDW 12.7 Plt Count 140 MPV 10.0 Immature Gran % 0.8 Neutrophils % 82.3 Lymphocytes % 6.5 Monocytes % 9.5 Eosinophils % 0.6 Basophils % 0.3 Nucleated RBC % 0.0 Absolute Neutrophils 7.79 H Absolute Lymphocytes 0.62 L Absolute Monocytes 0.90 H Absolute Eosinophils 0.06 Absolute Basophils 0.03 Sodium 142 Potassium 3.7 Chloride 108 H Carbon Dioxide 25.8 Anion Gap 8.2 BUN 19 H Creatinine 0.9 Est GFR (CKD-EPI 2020) 87.42 Glucose 132 H Calcium 8.1 L Magnesium 1.8 Total Bilirubin 2.53 H AST 79 H ALT 330 H Alkaline Phosphatase 97 Total Protein 5.5 L Albumin 2.9 L Add-On Test Request DONE Time Spent with Patient Time Spent with Patient: 25-34 minutes Time was spent: preparing to see the patient(eg.review tests), ordering medications,tests, procedures, indepentently interpreting results and counseling the patient
--- NOTE | 2024-04-24 12:28 | W.PM.PROGNOT ---
Date of Service Date of service: 04/24/24 Time of Service: 12:28 Assessment and Plan Assessment and plan (1) Acute pancreatitis: Status: Acute Assessment and plan: Gallstone pancreatitis. attemps to transfer to higher center of care for ERCP and intervention for celiac artery stenosis. Calls placed to [facility] and [facility] both who have declined patient. [facility] On zosyn Surgery following no white count, fever or evidence of abscess. continue NPO, clears only if tolerated pain management pulmonary toilet and ambulate IV fluids. Qualifiers: Pancreatitis type: biliary Acute pancreatitis complication: no infection or necrosis Qualified Code(s): K85.10 - Biliary acute pancreatitis without necrosis or infection (2) Choledocholithiasis with acute cholecystitis: Status: Acute Assessment and plan: MRI demonstrated multiple stones in the common bile duct. This appears to be causing a partial obstruction. Surgery following and recommends patient by evaluated at higher center of care for ERCP by GI specialist. (3) Arteriosclerotic vascular disease: Status: Chronic Assessment and plan: [facility] not concerned with artery compression Subjective Subjective Patient reports: still having pain, voiding w/o difficulty and afebrile; denies tolerating liquids well or shortness of breath Exam Const General: cooperative and ill appearing acutely Nutritional Appearance: overweight Orientation: alert, awake and oriented x3 HENAR Head: normal to inspection, normocephalic and atraumatic Face and sinus: normal facial exam Mouth: oral mucosae normal Eyes General: appearance normal, both eyes and all related structures Neck Neck: normal visual inspection and full ROM Chest Chest: normal inspection of the chest Resp Effort & Inspection: normal respiratory effort Cardio Rate: regular rate Rhythm: regular rhythm GI Inspection: distended Palpation: firm and tender Auscultation: hypoactive bowel sounds Skin General skin exam: no rashes or lesions noted Neuro General: patient alert, patient awake and patient oriented x3 Cognition: normal cognition Speech: speech normal Motor: muscle tone normal throughout Extrem General: normal to inspection, full ROM and no pedal edema Objective Last Vital Signs Temp 37.3 C 04/24/24 11:30 Pulse 89 04/24/24 11:30 Resp 20 04/24/24 11:30 BP 168/80 H 04/24/24 11:30 Pulse Ox 96 04/24/24 11:30 Laboratory Results - last 24 hr 04/23/24 04/24/24 06:13 06:29 WBC 9.48 RBC 4.03 L Hgb 12.6 L D Hct 37.2 L MCV 92 MCH 31.3 MCHC 33.9 RDW 12.7 Plt Count 140 MPV 10.0 Immature Gran % 0.8 Neutrophils % 82.3 Lymphocytes % 6.5 Monocytes % 9.5 Eosinophils % 0.6 Basophils % 0.3 Nucleated RBC % 0.0 Absolute Neutrophils 7.79 H Absolute Lymphocytes 0.62 L Absolute Monocytes 0.90 H Absolute Eosinophils 0.06 Absolute Basophils 0.03 Sodium 142 Potassium 3.7 Chloride 108 H Carbon Dioxide 25.8 Anion Gap 8.2 BUN 19 H Creatinine 0.9 Est GFR (CKD-EPI 2020) 87.42 Glucose 132 H Calcium 8.1 L Magnesium 1.8 Total Bilirubin 2.53 H AST 79 H ALT 330 H Alkaline Phosphatase 97 Total Protein 5.5 L Albumin 2.9 L Add-On Test Request DONE Time Spent with Patient Time Spent with Patient: 25-34 minutes Time was spent: preparing to see the patient(eg.review tests), ordering medications,tests, procedures, referring, communicating with other health rn patient care, indepentently interpreting results, counseling the patient and care coordination
--- NOTE | 2024-04-24 13:05 | PHA.REVIEW2 ---
Pharmacy Admission Review Admission Clinical Review Admission Pharmacy Review: Adynamic ileus (Acute) Choledocholithiasis with acute cholecystitis (Acute) Hypokalemia (Acute) Cholelithiasis (Acute) Elevated liver function tests (Acute) Acute pancreatitis (Acute) Gcfumub-MOQ-HfT Reductase Inhibitor Adverse Reaction (Unknown, Unverified 04/21/24 20:37) Other (See Comment) Resuscitation Status Full Code Height 6 ft Weight 106.3 kg Comments Comments/Follow Ups: Patient needs to be transferred but currently can't find a bed. [facility] and [facility] both declined patient per progress note. Pharmacy Admission Review Renal Dosing Renal Dosing: BUN 19 mg/dL (7-18) H 04/24/24 06:29 Creatinine 0.9 mg/dL (0.70-1.30) 04/24/24 06:29 Medications needing adjustments: Reviewed (CrCl 76.7 mL/min, BUN increased from 17) List of meds needing interventions: Current medications are okay Anticoagulation Anticoagulation: Hgb 12.6 g/dL (13.5-17.5) L D 04/24/24 06:29 Hct 37.2 % (40.0-50.0) L 04/24/24 06:29 Plt Count 140 10^3/uL (130-400) 04/24/24 06:29 INR 1.0 (0.9-1.1) 04/22/24 06:33 Creatinine 0.9 mg/dL (0.70-1.30) 04/24/24 06:29 DVT Prophylaxis: Reviewed (Hgb decreased from 14.8) Medications: Heparin (q8h) Opiate Usage Evaluate Pain Scale/Pains Meds: Reviewed (PRN hydromorphone - 4 doses given in last 24 hours) Scheduled Bowel Reg ordered if on Opiates?: No (PRN docusate/Miralax) Relevant Labs Relevant Labs: Sodium 142 mmol/L (136-145) 04/24/24 06:29 Potassium 3.7 mmol/L (3.5-5.1) 04/24/24 06:29 Chloride 108 mmol/L (98-107) H 04/24/24 06:29 Magnesium 1.8 mg/dL (1.8-2.4) 04/23/24 06:13 Electrolytes, C-Reactive P, ESR: Reviewed (AST/ALT decreased from 210/566 to 79/330, glucose 132) Cardiac Review Cardiac Review: Troponin I < 50 ng/L (< or =60) 04/22/24 06:33 NT-Pro-B Natriuret Pep 45 pg/mL (<300) 04/21/24 21:32 Blood Pressure 168/80 1130 Blood Pressure 160/91 0801 Blood Pressure 164/78 0351 BP, HR, EF%: Reviewed (HR WNL) QTc Review QTc: Reviewed (445 from 04/21/24) IV to PO Switch IV Medications: Reviewed (hydromorphone, ondansetron, Zosyn and potassium infusion. Patient is NPO.) Home Meds Home Med List reviewed: Reviewed Relevent Home Meds Not ordered & why?: ezetimibe, famotidine, HCTZ and tadalafil (PRN) Patient is currently NPO - if status changes then will reach out to provider about putting in orders Current Meds Current Medication Order Review: Reviewed Pharmacy Antibiotic Review Relevant Labs: WBC 9.48 10^3/uL (4.4-10.8) 04/24/24 06:29 Temperature 37.3 C 1130 Temperature 37.1 C 0801 Temperature 37.6 C 0356 Temperature 37.6 C 0351 Pharmacy Antibiotic Activity: Reviewed, no change Comments: Patient is on Zosyn, day 2, for cholelithiasis. Elevated temperature early this morning. Comments Comments/Follow Ups: Patient needs to be transferred but currently can't find a bed. [facility] and [facility] both declined patient per progress note.
--- NOTE | 2024-04-24 16:33 | CHAPLAIN ---
Michael was resting in bed when I visited. His nurse had just give him a shot. He said he's had a busy day with many people coming into his room. His and daughter were with him. He is waiting to be transferred to a tertiary center. I explained my role and offered support.
--- NOTE | 2024-04-24 17:08 | NUR.NOTE ---
Nursing Note: Charted in error under wrong patient
[2024-04-24] MEDS: Ondansetron 4 MG/2 ML VIAL IVP (19:19)
[2024-04-24] MEDS: Tamsulosin 0.4 MG CAPCR PO (20:23)
[2024-04-25] VITALS (7 sets, daily range): BP systolic 131–164; BP diastolic 64–98; PULSE 70–83; RESP 16–19; TEMP 36.8–37.6; O2SAT 92–93
[2024-04-25] MEDS: Normal Saline Flush 10 ML SYR IVP ×5 (02:00→16:28)
[2024-04-25] MEDS: HYDROmorphone 2 MG/ML SYR 1 MG IVP ×6 (02:00→16:27)
[2024-04-25] MEDS: Acetaminophen 325 MG TAB PO ×2 (04:48→14:11)
[2024-04-25] MEDS: PIPERACILLIN/TAZO 3.375 GM in Normal Saline 50 ML IVPB ×2 (04:50→09:46)
[2024-04-25] MEDS: POTASSIUM CHLORIDE/0.9% NACL 1,000 ML 150 MEQ IV (06:03)
[2024-04-25] MEDS: Levothyroxine 75 MCG TAB PO (06:03)
[2024-04-25] MEDS: Heparin 5,000 UNITS/ML VIAL 5000 UNITS SC (06:03)
[2024-04-25 06:45] LABS: HCT 34.1 % (40.0-50.0); HGB 11.8 g/dL (13.5-17.5); MCH 31.9 pg (27.0-33.0); MCHC 34.6 % (32.0-36.0); MCV 92 fL (80-95); MPV 10.2 fL (8.0-11.0); Platelet Count 136 10^3/uL (130-400); RDW 12.8 % (11.8-14.1); RDW-SD 43.1 fL; WBC 7.69 10^3/uL (4.4-10.8)
[2024-04-25 07:27] LABS: ALT 219 U/L (16-63); AST 45 U/L (15-37); Albumin 2.7 g/dL (3.4-5.0); Alkaline Phosphatase 90 U/L (46-116); Anion Gap 9.5 mmol/L (3-11); BUN 20 mg/dL (7-18); Bilirubin, Total 1.68 mg/dL (0.2-1.0); CO2 24.5 mmol/L (21.0-32.0); CREATININE 0.9 mg/dL (0.70-1.30); Calcium 8.4 mg/dL (8.5-10.1); Chloride 107 mmol/L (98-107); Estimated GFR 87.42 (mL/min/1.73m2); Glucose 111 mg/dL (74-106); Potassium 3.8 mmol/L (3.5-5.1); Sodium 141 mmol/L (136-145); Total Protein 6.2 g/dL (6.4-8.2)
[2024-04-25] MEDS: Gabapentin 100 MG CAP PO (07:54)
[2024-04-25] MEDS: Lisinopril 20 MG TAB PO (07:54)
[2024-04-25] MEDS: Finasteride 5 MG TAB PO (07:55)
[2024-04-25] MEDS: amLODIPine 10 MG TAB PO (07:55)
--- NOTE | 2024-04-25 09:41 | PDOC.CMPRO ---
Date of service: 04/25/24 Time of Service: 09:41 Care Management Progress Note Discharge Potential Discharge Needs: PCP F/U Appt and Surgical F/U Appt Anticipated Barriers to Discharge: Bed availability Patient/Family Education Needs: Review discharge instructions, discuss Ask Me Three Transportation: EMS Plan: Michael is waiting to be transferred to a tertiary care facility for further evaluation and treatment of his pancreatitis and biliary disease. Dr. Robb [facility] [place] [facility] but was unable to get an accepting physician. CM also reached out to several [place] hospitals with no success. CM will follow and continue to assess for discharge planning needs. SDOH(Care Management) Screening Will the Patient Participate in the Screening?: Yes Do you worry about having a steady place to live?: no Problems where you live: no known problems In the past 12 months, have you had to go without electric, gas, oil or water in your home?: no Have you or anyone in your house had to go without enough food to eat?: no Has lack of transportation kept you from medical appointments or from doing things needed for daily living?: no Has anyone in your support network made you feel unsafe for any reason?: no
--- NOTE | 2024-04-25 09:51 | PGE_ITS ---
Date of Service Date of service: 04/25/24 Time of Service: 09:51 Assessment and Plan Assessment and plan (1) Acute pancreatitis: Status: Acute Assessment and plan: Gallstone pancreatitis. Failed attemps to transfer to both [facility] and [facility] for ERCP and intervention for celiac artery stenosis. Calls placed to both who have declined patient. [facility]. Dr. Sang Eller [facility] [address]- Bed this PM Continue zosyn Surgery consulted with above recommendation no leukocytosis,afebrile no evidence of abscess, VSS continue NPO continue pain management continue pulmonary toilet with IS and ambulation IV fluids. Qualifiers: Acute pancreatitis complication: no infection or necrosis Pancreatitis type: biliary Qualified Code(s): K85.10 - Biliary acute pancreatitis without necrosis or infection (2) Choledocholithiasis with acute cholecystitis: Status: Acute Assessment and plan: MRI demonstrated multiple stones in the common bile duct. This appears to be causing a partial obstruction. Surgery following and recommends patient by evaluated at [facility] center of care for ERCP by GI specialist. Probable bed at [facility] this PM, accepted by Dr. Sang Eller (3) Arteriosclerotic vascular disease: Status: Chronic Assessment and plan: [facility] not concerned with artery compression Surgery recommendation was for : Arteriosclerotic vascular disease: Status: Chronic Assessment and plan: appears stable requires further evaluation by vascular surgery request to [facility] requested for this (4) Discharge planning issues: Status: Acute Assessment and plan: Probable bed at [facility] this PM, accepted by Dr. Sang Eller Objective Last Vital Signs Temp 37.2 C 04/25/24 08:02 Pulse 70 04/25/24 08:02 Resp 16 04/25/24 08:02 BP 137/64 04/25/24 08:02 Pulse Ox 92 04/25/24 08:02 Laboratory Results - last 24 hr 04/24/24 04/25/24 06:29 06:20 WBC 7.69 RBC 3.70 L Hgb 11.8 L Hct 34.1 L MCV 92 MCH 31.9 MCHC 34.6 RDW 12.8 Plt Count 136 MPV 10.2 Sodium 142 141 Potassium 3.7 3.8 Chloride 108 H 107 Carbon Dioxide 25.8 24.5 Anion Gap 8.2 9.5 BUN 19 H 20 H Creatinine 0.9 0.9 Est GFR (CKD-EPI 2020) 87.42 87.42 Glucose 132 H 111 H Calcium 8.1 L 8.4 L Magnesium 2.0 Total Bilirubin 2.53 H 1.68 H AST 79 H 45 H ALT 330 H 219 H Alkaline Phosphatase 97 90 Total Protein 5.5 L 6.2 L Albumin 2.9 L 2.7 L
--- NOTE | 2024-04-25 10:04 | W.PM.DS.N ---
Date of service: 04/25/24 Time of Service: 10:04 DS: Diagnosis Discharge Diagnosis (1) Acute pancreatitis: Status: Acute (2) Choledocholithiasis with acute cholecystitis: Status: Acute (3) Arteriosclerotic vascular disease: Status: Chronic (4) Discharge planning issues: Status: Acute Discharge Plan Disposition Patient Disposition: Transfer-Acute Inpatient Care Specific Acute Inpt Facility: [facility] Condition: Serious Discharge Details Reason For Visit: Acute Pancreatitis, Cholelithiasis, Hyperglycemia Admit Date/Time: 04/22/24 00:57 Admit Provider: Ronald Posey Attending Provider: Ronald Posey Primary Care Provider: Chan Martinez Hospital Course Hospital Course: This 78 years old male patient with a past medical history of hypertension, hyperlipidemia, gastric ulcers presented to the ED at [facility] via private vehicle for evaluation of abdominal pain. Patient reported pain as ripping sensation in his epigastric region radiating to his chest. On arrival to the ED the patient denied black or bloody stools, dysuria or frequency, loss of consciousness, shortness of breath, EtOH use, previous abdominal surgery. The patient reported nausea without vomiting. The workup in the ED ruled out ACS with negative troponin and EKG, aortic dissection with a negative by CT angiogram, necrotizing soft tissue infection was ruled out,cholecystitis and esophageal rupture were also ruled out. Significant findings were elevated lipase consistent with pancreatitis and marked transaminitis. No leukocytosis noted. CT angiogram of the chest abdomen and pelvis showed cholelithiasis without ductal dilation and severe stenosis at the origin and proximal artery without concern for mesenteric ischemia due to lack of intense or out of proportion pain as per the ED provider assessment. The hospitalist was consulted and the patient was admitted to the medical surgical floor for evaluation and management of acute pancreatitis with cholelithiasis and transaminitis. During the stay, the patient continued to receive IV fluid and was treated with piperacillin/tazobactam. An MRI was completed with findings as noted below. IMPRESSION: 1. Findings are consistent with acute pancreatitis in the setting of cholelithiasis. There are multiple tiny calculi in the gallbladder lumen which are better seen on MRI than on CT scan, and indeed there appear to be tiny calculi in the nondistended CBD, as seen on the MRCP images. Therefore suspect gallstone pancreatitis. 2. Pancreatic duct is not dilated. There is no pancreatic mass. There is increasing peripancreatic fluid but no evidence of intrapancreatic pseudocyst and there is no formed pseudocyst in the adjacent soft tissues at this time. Also no evidence of obvious pancreatic necrosis evident on this noninfused MRI study. An abdominal ultrasound was also completed with findings as noted below. IMPRESSION: 1. Cholelithiasis and evidence of acute cholecystitis. CBD diameter is upper normal. There are no obvious calculi seen in the upper-mid CBD. Lower CBD is not able to be seen due to overlying bowel gas. 2. In this patient who as pancreatitis on recent CT scan there is no evidence of formed pseudocyst within nor around the pancreas. The pancreatic duct is not dilated. 3. There is some perihepatic ascites which is most probably related to the acute pancreatitis. Surgery consult recommended transfer to a tertiary facility for severe celiac artery trunk cysts with less than 50% of patent vessel. Both [facility] were was consulted for transfer and were not able to accommodate the patient due to capacity. Surgery also recommended ERCP and cholecystectomy for partial obstruction due to cholelithiasis/severely inflamed gallbladder. The patient was accepted to [facility] to the care of Dr. Eller in hospital medicine. The patient will be discharged this afternoon, with improved transaminitis. Discussed with Dr. Conrad Home Meds and New Rx's Prescriptions: New hydromorphone 2 mg/mL Syringe 1 mg IVP Q2H PRN PRNQty: 1 0RF piperacillin-tazobactam 3.375 gram Recon Soln 3.375 g IVPB Q6H Qty: 1 0RF Continued aspirin [Aspir-81] 81 MG tablet,delayed release (DR/EC) 81 mg PO DAILY ezetimibe 10 mg tablet 10 mg PO DAILY finasteride 5 mg tablet 5 mg PO DAILY tadalafil 20 mg tablet 20 mg PO DAILY PRN Rx Instructions: administer approximately 30min before sexual activity; do not use more than 1 dose per 24hrs levothyroxine 25 MCG tablet 75 mcg PO DAILY@0600 amlodipine 10 MG tablet 10 mg PO DAILY lisinopril-hydrochlorothiazide 1 EACH tablet 1 tab PO DAILY Rx Instructions: Lisinopril 20mg/HCTZ 25mg tamsulosin [Flomax] 0.4 mg capsule 0.4 mg PO QHS docusate sodium [Colace] 100 mg Capsule 100 mg PO BID Qty: 30 0RF famotidine 20 mg Tablet 20 mg PO BID Qty: 60 0RF gabapentin 100 mg capsule 100 mg PO DAILY Discharge Instructions Activity:: Activity as Tolerated Equipment/Supplies:: No Equipment Needed Diet:: NPO Discharge Orders Discharge Orders: Discharge Order (Routine); Ordered 04/25/24 Ordered By: Katiuska Dong DS: Summary Time Spent with Patient providing and/or coordinating discharge services: Greater than 30 minutes Status at Discharge Functional status at discharge: independent ambulation Overall status at discharge: patient is not back to baseline Mental Status: mental status grossly normal Speech and Movement: speech and movement normal Mood: congruent mood Affect: normal affect Quality:SDOH Health Related Social Needs: No Data to Display Exam Narrative Exam Narrative: Constitutional The patient is ambulatory in room, increased respiratory rate but denies SOB, pain 5/10 with ambulation Appears well groomed without acute distress and has an obese body habitus HENMT: Facial structures with normal appearance Neuro:alert and oriented X4. No neurological focal deficit Resp:Clear lung bilaterally, with decreased lower lobes Cardio: regular rhythm, S1, S2, no murmur, capillary refill<3 sec., positive pulse to all 4 ext, trace edema to LE's GI: Abdomen semi-firm but not acute , distended, with epigastric tenderness, bowel sounds are present but high pitch and diminished : Negative Costovertebral angle tendernes Back/spine/Pelvis: No back tenderness, normal alignment Integumentary: No skin lesions or rash on exposed skin Extremities: strength 5/5 to bilateral lower and upper extremities Psych: RASS 0, congruent mood and normal affect. Psych Mental Status: mental status grossly normal Speech and Movement: speech and movement normal Mood: congruent mood Affect: normal affect DS: Data Vitals/I&O Vitals and I&O: Vital Signs Temperature 37.2 C 04/25/24 08:02 Temperature Source Skin 04/25/24 08:02 Pulse 70 04/25/24 08:02 Pulse Rhythm Regular 04/25/24 02:14 Pulse 80 04/22/24 01:40 Respiratory Rate 16 04/25/24 08:02 Respiratory Effort Normal, Non-Labored 04/25/24 02:14 Respiratory Depth Normal 04/25/24 02:14 Respiratory Pattern Normal 04/25/24 02:14 Blood Pressure 137/64 04/25/24 08:02 Blood Pressure Mean 106 04/22/24 01:31 Blood Pressure Position Sitting 04/21/24 20:28 Pulse Oximetry 92 04/25/24 08:02 Oxygen Delivery Method Room Air 04/25/24 08:02 Oxygen Flow Rate 0 04/25/24 08:02 Pain Level 6 04/25/24 09:44 Comment RN notified 04/23/24 11:04 Intake & Output 04/24/24 04/24/24 04/25/24 11:59 23:59 11:59 Intake Total 1050 / 4440 3390 / 4440 1050 / 1050 Output Total 0 / 0 Balance 1050 / 4440 3390 / 4440 1050 / 1050 Weight 110.631 kg Intake: IV 1050 / 4200 3150 / 4200 1050 / 1050 Oral 240 / 240 Output: Stool 0 / 0 Other: Urine Color Yellow Yellow Urine Appearance Clear Clear Clear Urine Odor None Comment ASSISTED PT WITH CHANGING UNDERGARMENTS AFTER URINARY INCONTINENCE independent in room, has not been measuring voids, states multiple trips to [employer] Voiding Methods Toilet Toilet Data Completed and Pending Labs on day of discharge: Labs from last 24 hours 04/25/24 04/24/24 06:20 06:29 WBC 7.69 RBC 3.70 L Hgb 11.8 L Hct 34.1 L MCV 92 MCH 31.9 MCHC 34.6 RDW 12.8 Plt Count 136 MPV 10.2 Sodium 141 142 Potassium 3.8 3.7 Chloride 107 108 H Carbon Dioxide 24.5 25.8 Anion Gap 9.5 8.2 BUN 20 H 19 H Creatinine 0.9 0.9 Est GFR (CKD-EPI 2020) 87.42 87.42 Glucose 111 H 132 H Calcium 8.4 L 8.1 L Magnesium 2.0 Total Bilirubin 1.68 H 2.53 H AST 45 H 79 H ALT 219 H 330 H Alkaline Phosphatase 90 97 Total Protein 6.2 L 5.5 L Albumin 2.7 L 2.9 L PFSH All Active Problems (Updated 04/25/24 @ 16:26 by Katiuska Dong APRN) Discharge planning issues (Acute) Adynamic ileus (Acute) Choledocholithiasis with acute cholecystitis (Acute) Arteriosclerotic vascular disease (Chronic) Hypokalemia (Acute) Hypertriglyceridemia (Chronic) Cholelithiasis (Acute) Elevated liver function tests (Acute) Acute pancreatitis (Acute) Epigastric abdominal pain (Acute) Arthritis of right shoulder region (Acute) Left rotator cuff tear (Acute ~12/09/22) Shoulder pain (Acute) Closed head injury with concussion (Acute) Hematoma of left parietal scalp (Acute) Chest wall contusion (Acute) Medical History Hypercholesterolemia Hypothyroid HTN (hypertension) BPH (benign prostatic hyperplasia) Social History Smoking/Tobacco Use Status: Never Smoking risk assessment performed?: Yes Alcohol Intake: current Alcohol Intake frequency: a few times a month Drug use: Never Substance use type: does not use Housing: house Current gender identity: male Do you feel safe at home: Yes Do you feel safe in your relationship?: Yes Additional Social history: at bedside Time Spent with Patient Time Spent with Patient: >85 minutes Time was spent: preparing to see the patient(eg.review tests), obtaining and/or reviewing separately otained hiistory, ordering medications,tests, procedures, referring, communicating with other health interior plant caretaker, indepentently interpreting results, counseling the patient and care coordination
[2024-04-25 11:19] LABS: Lipase 32 U/L (16-77)
--- NOTE | 2024-04-25 12:35 | W.PM.PROGNOT ---
Date of Service Date of service: 04/25/24 Time of Service: 12:35 Assessment and Plan Assessment and plan (1) Arteriosclerotic vascular disease: Status: Chronic Assessment and plan: Celiac artery stenosis. (2) Choledocholithiasis with acute cholecystitis: Status: Acute Assessment and plan: Total bilirubin and liver function enzymes are trending downward. It is possible that the patient is passing some of the stones in the common bile duct. It was also possible that the patient may have some residual stones. The patient should have evaluation of the common bile duct by ERCP. Patient accepted by [facility] for evaluation for ERCP and cholecystectomy. maintain IV abx Subjective Subjective Patient reports: no new complaints, feels better, still having pain and flatus Exam GI Inspection: distended Palpation: firm Objective Last Vital Signs Temp 99.7 F H 04/25/24 11:35 Pulse 78 04/25/24 11:35 Resp 19 04/25/24 11:35 BP 164/74 H 04/25/24 11:35 Pulse Ox 92 04/25/24 11:35 Laboratory Results - last 24 hr 04/25/24 06:20 WBC 7.69 RBC 3.70 L Hgb 11.8 L Hct 34.1 L MCV 92 MCH 31.9 MCHC 34.6 RDW 12.8 Plt Count 136 MPV 10.2 Sodium 141 Potassium 3.8 Chloride 107 Carbon Dioxide 24.5 Anion Gap 9.5 BUN 20 H Creatinine 0.9 Est GFR (CKD-EPI 2020) 87.42 Glucose 111 H Calcium 8.4 L Magnesium 2.0 Total Bilirubin 1.68 H AST 45 H ALT 219 H Alkaline Phosphatase 90 Total Protein 6.2 L Albumin 2.7 L Lipase 32 Time Spent with Patient Time Spent with Patient: 25-34 minutes Time was spent: preparing to see the patient(eg.review tests), obtaining and/or reviewing separately otained hiistory, ordering medications,tests, procedures, referring, communicating with other health care information associate, indepentently interpreting results, counseling the patient and care coordination
--- NOTE | 2024-04-25 16:16 | CMDISCH_ITS ---
Date of service: 04/25/24 Time of Service: 16:16 LACE Index Scoring Tool Questions: Length of Stay (in days): 3 Was the patient admitted via the E.D.?: Yes E.D. Visits: 2 Answers: Total Score: 8 Risk of Readmission: Low Risk Care Management Discharge Plan Reason for Hospitalization: pancreatitis Discharge Plan: Michael is waiting to be transferred to [facility] for further evaluation and treatment of his pancreatitis and biliary disease. A bed is now available and transportation will be coordinated with EMS by the nursing kitchen supervisor. Michael will follow up with the facility providers and plan of care. Patient/Family Education Needs: to be determined by [facility] staff Services Needed at Discharge: Transportation SDOH Health Related Social Needs: No Data to Display
--- NOTE | 2024-04-25 17:07 | NUR.NOTE ---
Report called to [facility] to Charge Nurse, Maeve. All questions answered, Maeve verbalized understanding of provided information. Provided call back number should any questions arise.
== END 2024-04-25 16:35 | disposition short-term general hospital (02) | DRG 439 ==
LOC: ER 04-22 01:35 → MS 04-22 02:15
PROVIDERS: Family Medicine; Nurse Practitioner Acute Care; Nurse Practitioner Family; Surgery; Admitting Provider Family Medicine; Emergency Provider Emergency Medicine; PCP Internal Medicine; Visit Provider Family Medicine
DX: K85.10 Biliary acute pancreatitis without necrosis or infection (principal); K56.0 Paralytic ileus; K80.43 Calculus of bile duct with acute cholecystitis with obstruction; N13.8 Other obstructive and reflux uropathy; K76.0 Fatty (change of) liver, not elsewhere classified; E87.6 Hypokalemia; I10 Essential (primary) hypertension; E03.9 Hypothyroidism, unspecified; E78.1 Pure hyperglyceridemia; M19.011 Primary osteoarthritis, right shoulder; R73.9 Hyperglycemia, unspecified; I70.8 Atherosclerosis of other arteries; N40.1 Benign prostatic hyperplasia with lower urinary tract symptoms; I77.1 Stricture of artery; R74.01 Elevation of levels of liver transaminase levels
CPT/HCPCS: 00123; 36415; 71275; 80048; 80053; 80061; 80076; 83690; 85027; 93005; 96361; 96374; 96376; 99285; 71045; 74174; 74181; 76705; 83735; 83880; 84439; 84443; 84484; 85025; 85610; 93010; 99223; 99231; 99233; 99239; J1170; J1644; J2270; J2405; J2543; J3480; J3490

== ENCOUNTER 2024-05-31 10:03 | Emergency (ER) | payer OTHER, SELFPAY ==
[2024-05-31 10:09] VITALS: BP 123/77; PULSE 74; RESP 18; TEMP 36.2
--- NOTE | 2024-05-31 10:29 | W.ED.GENAD ---
Discharge Plan Disposition Patient Disposition: Home Discharge Details Clinical Impression: Abdominal pain, right upper quadrant Primary Care Provider: Chan Martinez ED Provider: Michael Martin Home Meds and New Rx's Prescriptions: Continued aspirin [Aspir-81] 81 MG tablet,delayed release (DR/EC) 81 mg PO DAILY ezetimibe 10 mg tablet 10 mg PO DAILY finasteride 5 mg tablet 5 mg PO DAILY tadalafil 20 mg tablet 20 mg PO DAILY PRN Rx Instructions: administer approximately 30min before sexual activity; do not use more than 1 dose per 24hrs levothyroxine 25 MCG tablet 75 mcg PO DAILY@0600 amlodipine 10 MG tablet 10 mg PO DAILY lisinopril-hydrochlorothiazide 1 EACH tablet 1 tab PO DAILY Rx Instructions: Lisinopril 20mg/HCTZ 25mg tamsulosin [Flomax] 0.4 mg capsule 0.4 mg PO QHS docusate sodium [Colace] 100 mg Capsule 100 mg PO BID Qty: 30 0RF famotidine 20 mg Tablet 20 mg PO BID Qty: 60 0RF gabapentin 100 mg capsule 100 mg PO DAILY hydromorphone 2 mg/mL Syringe 1 mg IVP Q2H PRN PRNQty: 1 0RF piperacillin-tazobactam 3.375 gram Recon Soln 3.375 g IVPB Q6H Qty: 1 0RF Discharge Instructions Additional Instructions: You were seen in the emergency department for your abdominal pain. Your CAT scan showed that you had a small collection of fluid at your surgical site in the upper part of your abdomen on the right. As we discussed, there is no sign of any abscess. If you develop nausea vomiting worsening pain fevers or if you cannot eat or drink please return to the emergency department. Otherwise please follow-up with the general surgery clinic in the next 2 to 3 weeks by calling for an appointment. Referrals: [facility] [Provider Group] Discharge Data Discharge Date/Time-TO BE ENTERED AT DEPARTURE: 05/31/24 13:57 HPI General Date/Time Provider Initiated Documentation: 05/31/24 10:14. HPI Narrative: [facility] This is an overall very well-appearing afebrile and not tachycardic 78-year-old male with postoperative right upper quadrant pain status post lap maikel complicated by acute pancreatitis in the setting of choledocholithiasis with concern for retained stone for which patient will undergo a CT scan. No pain out of proportion to suggest necrotizing soft tissue infection. Patient's abdominal surgical incision sites appear to be healing well so I am not concerned for dehiscence. Will obtain a D-dimer as patient is otherwise low risk for PE but he does have shortness of breath and right upper quadrant pain concerning for the possibility of PE. If dimer is negative will order a two-view chest x-ray to assess for postoperative pneumonia. No rash to abdomen to suggest zoster. Will obtain troponin tests to assess for myocardial injury and will obtain ECG. No dysuria no frequency so doubt UTI. Will obtain lipase to assess for pancreatitis. No right lower quadrant tenderness and my suspicion is low for appendicitis. Considered AAA however the patient does not hypotensive nor is he a vasculopath so I did not feel he required a CT angiogram of his abdomen and pelvis. 11:30 AM Comprehensive metabolic panel showing mild hyperglycemia and normal anion gap normal bicarbonate??not consistent with DKA. Normal LFTs. Normal lipase?/not consistent with pancreatitis. Age-adjusted negative D-dimer. CBC shows mild leukopenia and mild improved normocytic anemia. Patient also has lymphopenia. No thrombocytosis. No thrombocytopenia. Reassuring initial troponin at 8 ng/L. 12 PM Reassuring repeat troponin with delta of 1 ng/L. 1:37 PM I spoke to Dr. Acevedo from general surgery who reviewed the patient's CT scan. She reported that the liquid did not appear concerning nor worsening. She advised an empiric trial of discharge w/expectant outpatient manamgent w/general surgery. If pain persists patient could benefit from a repeat RUQ US. I met with the patient and explained his CT results. We discussed that he should return to the emergency department if you develop fevers worsening pain nausea or vomiting. He understood his return indications. I have asked health neonatal intensive care unit nurse Parisa to have the patient seen general surgery clinic in the next 2 weeks. Patient and his understood return indications the patient was discharged with empiric trial of expectant outpatient management. ECG Narrow complex normal sinus rhythm at a rate of 62. Normal axis. First-degree AV block MI interval 201 ms. QTc within normal limits. T wave inversion in aVL. Q wave in lead III. Compared to prior dated last month Q wave in 3 and T wave version in aVL are persistent. T wave inversion in V2 has resolved. No acute injury pattern. HPI This is a 78-year-old male arrived to the emergency department with his in the setting of right upper quadrant pain. Patient is approximately 1 month status post laparoscopic cholecystectomy. About 1 week ago he developed pain in his right upper quadrant radiated to his back. He has occasional had some cough. His pain is worse when he takes a deep breath in. He said no chest pain no nausea no vomiting. He denies any black or bloody stools. He has never had a PE nor DVT. He has not had any calf pain or swelling. He denies routine tobacco, ethanol, and illicits. No dysuria nor frequency. Exam General: Well-appearing in no acute distress speaking in complete sentences. Head: Normocephalic, atraumatic. Eye: Extraocular eye movements intact. No conjunctival injection. No scleral icterus. Ear, nose, mouth, throat: Grossly normal inspection. Normal voice, handling secretions normally. Neck: Trachea midline. Cardiovascular: Well-perfused distal extremities. Regular rate and rhythm Respiratory: Nonlabored respiration. Clear lungs bilaterally Gastrointestinal: Nondistended abdomen. Surgical incision sites appear to be healing well. Soft nontender. Mild right upper quadrant tenderness. No rebound. No guarding. Musculoskeletal: No edema. Moving all 4 extremities spontaneously. Skin: Normal for age and race, grossly normal temperature and turgor. No acute rash. Neurologic: Alert and appropriate, no apparent acute deficits. Psychiatric: Mood and manner are appropriate. Grooming and personal hygiene are appropriate. Related Data Home Medications ?Medication ?Instructions ?Recorded ?Confirmed amlodipine 10 mg tablet 10 mg PO DAILY 11/18/13 04/21/24 levothyroxine 25 mcg tablet 75 mcg PO DAILY@0600 11/18/13 04/21/24 lisinopril 20 1 tab PO DAILY 11/18/13 04/21/24 mg-hydrochlorothiazide 25 mg tablet aspirin 81 mg tablet,delayed 81 mg PO DAILY 10/10/16 04/21/24 release (Aspir-) ezetimibe 10 mg tablet 10 mg PO DAILY 12/27/22 04/21/24 finasteride 5 mg tablet 5 mg PO DAILY 12/27/22 04/21/24 tadalafil 20 mg tablet 20 mg PO DAILY PRN 12/27/22 04/21/24 tamsulosin 0.4 mg capsule (Flomax) 0.4 mg PO QHS 12/13/23 04/21/24 docusate sodium 100 mg capsule 100 mg PO BID #30 caps 12/14/23 04/21/24 (Colace) famotidine 20 mg tablet 20 mg PO BID #60 tabs 12/14/23 04/21/24 gabapentin 100 mg capsule 100 mg PO DAILY 04/21/24 04/21/24 hydromorphone 2 mg/mL injection 1 mg (0.5 mL) IVP Q2H PRN PRN #1 mL 04/25/24 syringe piperacillin-tazobactam 3.375 gram 3.375 g IVPB Q6H #1 ea 04/25/24 intravenous solution Previous Rx's ?Medication ?Instructions ?Recorded docusate sodium 100 mg capsule 100 mg PO BID #30 caps 12/14/23 (Colace) famotidine 20 mg tablet 20 mg PO BID #60 tabs 12/14/23 hydromorphone 2 mg/mL injection 1 mg (0.5 mL) IVP Q2H PRN PRN #1 mL 04/25/24 syringe piperacillin-tazobactam 3.375 gram 3.375 g IVPB Q6H #1 ea 04/25/24 intravenous solution Allergies Allergy/AdvReac Type Severity Reaction Status Date / Time Dkgbdfb-LPD-CfP Reductase AdvReac Unknown Other (See Unverified 04/21/24 20:37 Inhibitor Comment) General Stated Complaint: Abd Prob SUE: 3 Course Vital Signs Vital signs: Vital Signs Temperature 36.2 C L 05/31/24 10:09 Pulse 74 05/31/24 10:09 Respiratory Rate 18 05/31/24 10:09 Blood Pressure 123/77 05/31/24 10:09 Temperature 36.2 C L 05/31/24 10:09 Pulse 74 05/31/24 10:09 Respiratory Rate 18 05/31/24 10:09 Blood Pressure 123/77 05/31/24 10:09 Blood Pressure Position Supine 05/31/24 10:09 Medical Decision Making Quality:SDOH Health Related Social Needs: No Data to Display PFSH All Active Problems (Updated 05/31/24 @ 13:48 by Michael Martin MD) Abdominal pain, right upper quadrant (Acute) Adynamic ileus (Acute) Choledocholithiasis with acute cholecystitis (Acute) Arteriosclerotic vascular disease (Chronic) Hypertriglyceridemia (Chronic) Cholelithiasis (Acute) Elevated liver function tests (Acute) Acute pancreatitis (Acute) Epigastric abdominal pain (Acute) Arthritis of right shoulder region (Acute) Left rotator cuff tear (Acute ~12/09/22) Shoulder pain (Acute) Closed head injury with concussion (Acute) Hematoma of left parietal scalp (Acute) Chest wall contusion (Acute) Medical History Hypercholesterolemia Hypothyroid HTN (hypertension) BPH (benign prostatic hyperplasia) Social History Smoking/Tobacco Use Status: Never Smoking risk assessment performed?: Yes Alcohol Intake: current Alcohol Intake frequency: a few times a month Alcohol type: beer Drug use: Never Substance use type: does not use Housing: house Current gender identity: male Do you feel safe at home: Yes Do you feel safe in your relationship?: Yes Additional Social history: at bedside
[2024-05-31 10:31] VITALS: BP 123/77; PULSE 74; RESP 18; TEMP 36.2
[2024-05-31 10:34] LABS: Abs Immature Grans 0.02 10^3/uL (0.0-0.06); Absolute Basophil Count 0.06 10^3/uL (0.0-0.2); Absolute Eosinophil Count 0.62 10^3/uL (0.0-0.7); Absolute Lymphocyte Count 1.09 10^3/uL (1.2-3.4); Absolute Monocyte Count 0.36 10^3/uL (0.1-0.8); Absolute Neutrophil Count 2.16 10^3/uL (1.2-6.7); Basophils % 1.4 %; Eosinophils % 14.4 %; HCT 37.7 % (40.0-50.0); HGB 12.9 g/dL (13.5-17.5); Immature Grans % 0.5 %; Lymphocytes % 25.3 %; MCHC 34.2 % (32.0-36.0); MCV 91 fL (80-95); MPV 10.2 fL (8.0-11.0); Monocytes % 8.4 %; Platelet Count 177 10^3/uL (130-400); RBC 4.16 10^6/uL (4.36-5.78); RDW 12.5 % (11.8-14.1); RDW-SD 40.8 fL; WBC 4.31 10^3/uL (4.4-10.8)
[2024-05-31 10:54] LABS: ALT 31 U/L (16-63); AST 20 U/L (15-37); Albumin 3.5 g/dL (3.4-5.0); Alkaline Phosphatase 95 U/L (46-116); BUN 14 mg/dL (7-18); Bilirubin, Total 0.44 mg/dL (0.2-1.0); Chloride 102 mmol/L (98-107); Estimated GFR 77.04 (mL/min/1.73m2); Glucose 125 mg/dL (74-106); Lipase 43 U/L (16-77); Potassium 3.5 mmol/L (3.5-5.1); Sodium 140 mmol/L (136-145); Total Protein 7.1 g/dL (6.4-8.2); Troponin I 8 ng/L (<or=76)
[2024-05-31 11:04] LABS: Calcium 9.3 mg/dL (8.5-10.1)
[2024-05-31 11:10] LABS: D-Dimer 644 ng/mlFEU (<500)
--- NOTE | 2024-05-31 11:30 | RT.EKG_ITS ---
APPROVED REPORT Exam: Resting ECG Reason for Exam: Right upper quadrant pain Patient Location: E HR:62 bpm ECG Measurements Heart Rate 62 AXIS NJ 201 P 40 QRSd 90 QRS 60 QT 438 T 86 QTc 444 Conclusion Sinus rhythm...normal P axis, V-rate 60- 99 Narrow complex normal sinus rhythm at a rate of 62. Normal axis. First-degree AV block NJ interval 201 ms. QTc within normal limits. T wave inversion in aVL. Q wave in lead III. Compared to prior dated last month Q wave in 3 and T wave version in aVL are persistent. T wave inversion in V2 has re solved. No acute injury pattern.
[2024-05-31 11:55] LABS: Troponin I 7 ng/L (<or=76)
[2024-05-31 12:27] LABS: COVID-19 PCR Negative (Negative); Influenza A PCR Negative (Negative); Influenza B PCR Negative (Negative); RSV PCR Negative (Negative)
[2024-05-31 12:35] LABS: Source Nasopharynx
[2024-05-31] MEDS: Omnipaque 350 MG/ML 500 ML BTL-Imaging package IJ (12:59)
--- NOTE | 2024-05-31 13:00 | DI.CT_ITS ---
Exam(s) CT ABDOMEN PELVIS W EXAM: CT ABDOMEN PELVIS W CLINICAL HISTORY: Right upper quadrant pain 1 month post lap maikel. TECHNIQUE: Imaging Protocol: Axial computed tomography images with coronal and sagittal reformatted images were created and reviewed CONTRAST MATERIAL: Intravenous: Omnipaque 350 Contrast volume:85 ml Oral: / no COMPARISON: CT CT THORAX ABD/PEL CTA from 04/21/2024 FINDINGS: ABDOMEN and PELVIS: Lung Bases: Minimal nonspecific densities noted in right middle lobe. Liver: Normal density. No suspicious mass. Small amount of fluid around liver. Gallbladder and biliary tract: Status post cholecystectomy. Small amount of residual fluid in the ga llbladder fossa in no findings to suggest an abscess. Air is noted within the common bile duct but t here is no biliary dilation. Pancreas: Normal density. No abnormal calcifications or inflammatory process. No evidence of mass. Spleen: Normal. Kidneys: Normal size, contour and axis. No radiodense stones. No obstructive uropathy. No suspicious masses seen. Adrenal glands: No masses seen. Vasculature: Abdominal aorta non-dilated. Three atherosclerotic changes peer Soft tissues: Mild stranding in the right upper quadrant abdominal wall and umbilical region of the r elated to laparoscopic cholecystectomy. Small fatty containing inguinal hernias Bladder: Mild diffuse wall thickening. No calculi.No focal mass. Bowel: No obstruction. No bowel wall thickening. Appendix normal. Moderate diverticulosis. No alberto dence of diverticulitis. Increased quantity of stool. Peritoneal cavity: Trace fluid in the on pelvis and along right paracolic gutter. No focal collectio n. No mesenteric inflammatory response. Bones: Unremarkable for age. Reproductive organs: Enlarged prostate. Lymph nodes: No pathologically enlarged lymph nodes. IMPRESSION:: Status post laparoscopic cholecystectomy. Small amount of residual fluid within gallbl adder fossa, along border of liver as well as in the low pelvis consistent with postoperative changes . No abscess. Air in the common bile duct but no abnormal dilatation or abnormal enhancement. No intrahepatic bili nick dilatation. Findings called to Dr. Martin of the emergency department. RADIATION DOSE DELIVERED: 461.53mGy.cm Total DLP DATA REPOSITORY: All CT scans at this facility are submitted to the National Radiology Data Registry (NRDR) Dose Index Registry (DIR) with the [employer] (ACR). RADIATION OPTIMIZATION: All CT scans at this facility use at least one of these dose optimization te chniques: automated exposure control; mA and/or kV adjustment per patient size (includes targeted exa ms where dose is matched to clinical indication); or iterative reconstruction.
[2024-05-31] MEDS: Normal Saline - Diluent 50 ML VIAL IJ (13:01)
--- NOTE | 2024-05-31 13:04 | DI.RAD_ITS ---
Exam(s) XR CHEST 2V PA LATERAL EXAM: XR CHEST 2V PA LATERAL CLINICAL HISTORY: Right upper quadrant pain postop TECHNIQUE: 2D digital imaging was performed. Two views. COMPARISON: CR,XR XR PORTABLE CHEST AP from 04/21/2024 FINDINGS: HEART: Normal size. Aorta: Not dilated. PULMONARY VASCULATURE: Normal. MEDIASTINUM: Unremarkable. LUNGS: Clear. PLEURAL SPACE: No pleural effusion or pneumothorax. BONE:Unremarkable for age. SOFT TISSUES: Unremarkable. IMPRESSION: No acute abnormality. DATA REPOSITORY: RADIATION DOSE DELIVERED:
== END 2024-05-31 13:57 | disposition home or self-care (01) ==
PROVIDERS: Emergency Provider Emergency Medicine; PCP Internal Medicine
DX: R10.11 Right upper quadrant pain (principal); R06.02 Shortness of breath; I44.0 Atrioventricular block, first degree; I10 Essential (primary) hypertension; Z79.82 Long term (current) use of aspirin; Z90.49 Acquired absence of other specified parts of digestive tract
CPT/HCPCS: 36415; 80053; 83690; 87637; 93005; 99285; 71046; 74177; 84484; 85025; 85379; 93010; 99284

== ENCOUNTER 2025-03-10 10:10 | Observation (INO) | payer OTHER, SELFPAY ==
[2025-03-10] VITALS (115 sets, daily range): BP systolic 121–217; BP diastolic 61–120; PULSE 51–90; RESP 11–29; TEMP 36.6–36.8; O2SAT 91–97
--- NOTE | 2025-03-10 10:00 | RT.EKG_ITS ---
APPROVED REPORT Exam: Resting ECG Reason for Exam: Chest pain Patient Location: E HR:73 bpm ECG Measurements Heart Rate 73 AXIS NH 201 P 47 QRSd 96 QRS 85 QT 397 T 115 QTc 439 Conclusion Sinus rhythm...normal P axis, V-rate 60- 99 Probable left atrial enlargement...P >50mS, <-0.10mV V1 Probable inferior infarct, age indeterminate...Q>35mS, T neg, II III aVF Nonspecific T abnormalities, lateral leads...T <-0.10mV, I aVL V5 V6
--- NOTE | 2025-03-10 10:30 | DI.CT_ITS ---
Exam(s) CT THORAX ABD/PEL CTA EXAM: CT THORAX ABD/PEL CTA CLINICAL HISTORY: sharp substern cp, htn. TECHNIQUE: Imaging Protocol: Axial CT angiography was performed with multi- slice acquisition and multi-planar and/or 3D reconstructions. CONTRAST MATERIAL: Intravenous: Omnipaque 350 Contrast volume:100 mL Oral: / no COMPARISON: CT CT THORAX ABD/PEL CTA from 04/21/[address] ABDOMEN PELVIS W from 05/31/2024 FINDINGS: CHEST: Pulmonary Arteries: No evidence of filling defect to suggest pulmonary emboli. Tracheobronchial tree: Patent where visualized. Mediastinum and Huong: No dominant adenopathy or fluid collection. Pulmonary parenchyma: No consolidation or dominant measurable mass. No architectural distortion. Pleura: No effusion or pneumothorax. Heart: The heart is mildly dilated. Coronary artery calcifications are seen. Aorta: Thoracic aorta non-dilated. Mild to moderate atherosclerotic calcification. Bones: Degenerative changes with prominent endplate osteophytes. No evidence of compression fractures. Tubes, Catheters, and Lines: ABDOMEN AND PELVIS: Abdomen: Celiac axis/: Focal calcific plaque causing moderate to severe stenosis focal severe stenosis also seen 1 cm distally. The findings are unchanged from the prior exam. Mesenteric arteries: No evidence of occlusion or significant stenosis. Renal Arteries: No evidence of occlusion or significant stenosis. There is a single renal artery perfusing each kidney. Aorta: No evidence of occlusion or significant stenosis. No aneurysm or dissection. Moderate atherosclerotic calcification. Pelvis: Iliac Arteries: No evidence of occlusion or significant stenosis. Common Femoral Arteries: No evidence of occlusion or significant stenosis. Liver: Normal density. No measurable mass. Portal, Superior Mesenteric, and Splenic Veins: Unremarkable. Gallbladder and Biliary Tract: Cholecystectomy. No biliary dilatation.. Pancreas: Normal density, no abnormal calcifications or inflammatory process. Spleen: Normal. Adrenals: No masses seen. Kidneys: Normal size, contour and axis. No radiodense stones or obstructive uropathy. No masses seen. Bowel: No obstruction or bowel wall thickening. Appendix is unremarkable. Diverticulosis. No evidence of diverticulitis. Peritoneal Cavity: Small amount of fluid around the liver and spleen, increased from prior exams.. Small amount of fluid noted in both lower quadrants and paracolic gutters. No focal collection or mesenteric inflammatory response. Lymph Nodes: Within normal limits. Bones: Unremarkable. Soft Tissues: Small fat containing bilateral inguinal hernias. Bladder: Symmetric distention, no gross wall thickening. Reproductive Organs: Unremarkable enlarged prostate. Lymph Nodes: Within normal limits. Bones: Advanced degenerative disc changes. IMPRESSION: No evidence of aortic dissection or pulmonary emboli. 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 Small amount of ascites around the liver and spleen and in the paracolic colic gutters and lower quadrants. RADIATION DOSE DELIVERED: 961.51mGy.cm Total DLP DATA REPOSITORY: All CT scans at this facility are submitted to the National Radiology Data Registry (NRDR) Dose Index Registry (DIR) with the [employer] (ACR). RADIATION OPTIMIZATION: All CT scans at this facility use at least one of these dose optimization techniques: automated exposure control; mA and/or kV adjustment per patient size (includes targeted exams where dose is matched to clinical indication); or iterative reconstruction.
[2025-03-10 10:47] LABS: Abs Immature Grans 0.06 10^3/uL (0.0-0.06); HCT 40.4 % (40.0-50.0); HGB 14.4 g/dL (13.5-17.5); Immature Grans % 1.4 %; MCH 31.7 pg (27.0-33.0); MCHC 35.6 % (32.0-36.0); MCV 89 fL (80-95); MPV 10.0 fL (8.0-11.0); Platelet Count 171 10^3/uL (130-400); RBC 4.54 10^6/uL (4.36-5.78); RDW 12.1 % (11.8-14.1); RDW-SD 39.6 fL; WBC 4.29 10^3/uL (4.4-10.8)
[2025-03-10 11:04] LABS: PTT Activated 25.9 sec (20.6-30.2)
[2025-03-10] MEDS: nitroGLYcerin 0.4 MG TAB SL ×6 (11:14→20:41)
[2025-03-10 11:23] LABS: ALT 52 U/L (16-63); AST 30 U/L (15-37); Albumin 3.7 g/dL (3.4-5.0); Alkaline Phosphatase 71 U/L (46-116); Anion Gap 6.5 mmol/L (3-11); BUN 26 mg/dL (7-18); Bilirubin, Total 0.7 mg/dL (0.2-1.0); CO2 30.5 mmol/L (21.0-32.0); Calcium 8.9 mg/dL (8.5-10.1); Chloride 101 mmol/L (98-107); Estimated GFR 86.88 (mL/min/1.73m2); Glucose 182 mg/dL (74-106); Lipase 34 U/L (<78); Potassium 3.8 mmol/L (3.5-5.1); Sodium 138 mmol/L (136-145); Total Protein 6.9 g/dL (6.4-8.2); Troponin I 8 ng/L (<or=76)
[2025-03-10 11:59] LABS: Troponin I 8 ng/L (<or=76)
[2025-03-10] MEDS: Omnipaque 350 MG/ML 100 ML BTL IJ (12:32)
[2025-03-10] MEDS: Normal Saline - Diluent 50 ML VIAL IJ (12:33)
--- NOTE | 2025-03-10 13:36 | W.ED.GENAD ---
Discharge Plan Disposition Patient Disposition: Admit to [facility] Condition: Serious Discharge Details Clinical Impression: Chest pain, Hypertension, Hyperglycemia Primary Care Provider: Chan Martinez ED Provider: Paul Mackey Home Meds and New Rx's Prescriptions: No Action aspirin [Aspir-81] 81 MG tablet,delayed release (DR/EC) 81 mg PO DAILY ezetimibe 10 mg tablet 10 mg PO DAILY tadalafil 20 mg tablet 20 mg PO DAILY PRN Rx Instructions: administer approximately 30min before sexual activity; do not use more than 1 dose per 24hrs levothyroxine 25 MCG tablet 75 mcg PO DAILY@0600 amlodipine 10 MG tablet 10 mg PO DAILY lisinopril-hydrochlorothiazide 1 EACH tablet 1 tab PO DAILY Rx Instructions: Lisinopril 20mg/HCTZ 25mg tamsulosin [Flomax] 0.4 mg capsule 0.4 mg PO QHS HPI General Mode of arrival: ambulatory. Date/Time Provider Initiated Documentation: 03/10/25 10:26. Limitations to Documentation: no limitations. Information obtained by: patient. HPI Narrative: HISTORY OF PRESENT ILLNESS Male with history of pancreatitis and cholecystectomy presenting with chest pain. Arrived in ED with . Reports sudden onset of sharp, stabbing right-sided chest pain at 0830 hours while preparing coffee, severity 9/10, causing nausea. Took nitroglycerin, rested, pain reduced to 5/10 but recurred after 10-15 minutes. Pain located under sternum, non-radiating, likened to being kicked. Pain intensified en route to ED. 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 Normal stress tests, last one last year. No catheterization. 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 No issues post-cholecystectomy, usual diet. Advised to use nitroglycerin for similar chest pains. BP elevated at 174/74, typically mid-140s. Adherent to antihypertensive medication. PAST SURGICAL HISTORY: Cholecystectomy Related Data Home Medications ?Medication ?Instructions ?Recorded ?Confirmed amlodipine 10 mg tablet 10 mg PO DAILY 11/18/13 03/10/25 levothyroxine 25 mcg tablet 75 mcg PO DAILY@0600 11/18/13 03/10/25 lisinopril 20 1 tab PO DAILY 11/18/13 03/10/25 mg-hydrochlorothiazide 25 mg tablet aspirin 81 mg tablet,delayed 81 mg PO DAILY 10/10/16 03/10/25 release (Aspir-) ezetimibe 10 mg tablet 10 mg PO DAILY 12/27/22 03/10/25 tadalafil 20 mg tablet 20 mg PO DAILY PRN 12/27/22 03/10/25 tamsulosin 0.4 mg capsule (Flomax) 0.4 mg PO QHS 12/13/23 03/10/25 Allergies Allergy/AdvReac Type Severity Reaction Status Date / Time Bxojywa-OVZ-MaO Reductase AdvReac Unknown Other (See Unverified 03/10/25 10:17 Inhibitor Comment) General Stated Complaint: Chest Pain SUE: 3 Review of Systems All systems reviewed & are unremarkable except as noted in HPI and below Constitutional Constitutional: Denies fever(s) Cardiovascular Cardiovascular: Reports as per HPI Exam Const General: cooperative HENMT Mouth: moist mucous membranes Eyes Conjunctivae: normal conjunctivae Sclera: normal sclerae Resp Auscultation: clear to auscultation bilaterally, no rales, no rhonchi and no wheezes Cardio Jugular venous pressure: no JVD Rate: regular rate and not tachycardic Rhythm: regular rhythm GI Palpation: soft, not firm, no guarding, no masses, not rigid and nontender Skin General skin exam: no rashes or lesions noted Neuro General: patient alert, patient awake, patient oriented x3 and tone normal Extrem General: no calf tenderness and no edema Psych Appearance: grossly normal Mental Status: mental status grossly normal Speech and Movement: speech and movement normal Course Vital Signs Vital signs: Vital Signs Pulse 69 03/10/25 10:13 Respiratory Rate 18 03/10/25 10:13 Blood Pressure 181/77 H 03/10/25 10:13 Pulse Oximetry 96 03/10/25 10:13 Temperature 36.8 C 03/10/25 10:40 Pulse 65 03/10/25 12:01 Pulse 67 03/10/25 12:10 Respiratory Rate 21 03/10/25 12:10 Respiratory Effort Normal, Non-Labored 03/10/25 10:49 Respiratory Depth Normal 03/10/25 10:49 Respiratory Pattern Normal 03/10/25 10:49 Blood Pressure 152/75 H 03/10/25 12:01 Blood Pressure Mean 104 03/10/25 12:01 Pulse Oximetry 95 03/10/25 12:01 Pain Level 1 03/10/25 11:19 Lab/Test Results Lab/Test Results: Laboratory Tests Range/Units 03/10/25 03/10/25 10:33 11:33 WBC (4.4-10.8) 10^3/uL 4.29 L RBC (4.36-5.78) 10^6/uL 4.54 Hgb (13.5-17.5) g/dL 14.4 Hct (40.0-50.0) % 40.4 MCV (80-95) fL 89 MCH (27.0-33.0) pg 31.7 MCHC (32.0-36.0) % 35.6 RDW (11.8-14.1) % 12.1 Plt Count (130-400) 10^3/uL 171 MPV (8.0-11.0) fL 10.0 Immature Gran % % 1.4 Neutrophils % % 64.8 Lymphocytes % % 21.7 Monocytes % % 7.0 Eosinophils % % 4.4 Basophils % % 0.7 Nucleated RBC % (0.0-0.3) % 0.0 Absolute Neutrophils (1.2-6.7) 10^3/uL 2.78 Absolute Lymphocytes (1.2-3.4) 10^3/uL 0.93 L Absolute Monocytes (0.1-0.8) 10^3/uL 0.30 Absolute Eosinophils (0.0-0.7) 10^3/uL 0.19 Absolute Basophils (0.0-0.2) 10^3/uL 0.03 APTT (20.6-30.2) sec 25.9 Sodium (136-145) mmol/L 138 Potassium (3.5-5.1) mmol/L 3.8 Chloride (98-107) mmol/L 101 Carbon Dioxide (21.0-32.0) mmol/L 30.5 Anion Gap (3-11) mmol/L 6.5 BUN (7-18) mg/dL 26 H Creatinine (0.70-1.30) mg/dL 0.9 Est GFR (CKD-EPI 2020) (mL/min/1.73m2) 86.88 Glucose (74-106) mg/dL 182 H Calcium (8.5-10.1) mg/dL 8.9 Total Bilirubin (0.2-1.0) mg/dL 0.7 AST (15-37) U/L 30 ALT (16-63) U/L 52 Alkaline Phosphatase (46-116) U/L 71 Troponin I (<or=76) ng/L 8 8 Total Protein (6.4-8.2) g/dL 6.9 Albumin (3.4-5.0) g/dL 3.7 Lipase (<78) U/L 34 Medical Decision Making ASSESSMENT AND PLAN Initial Assessment: Sudden onset severe right-sided chest pain, 10, with nausea. Pain reduced with nitroglycerin, recurred intermittently. History of pancreatitis and cholecystectomy. EKG normal. Differential Diagnosis: - Cardiac event: Severe chest pain, nausea. EKG normal. Blood tests for cardiac function. - Pancreatitis: History, similar pain location. Check lipase levels. CT scan pancreas. - Aortic dissection: Severe chest pain. CT scan aorta. ED Course: - 10 March 2025 0830 hours - Onset of chest pain while preparing coffee. - EKG normal. - Ordered blood tests for cardiac function and lipase levels. - Ordered CT scan for aorta and pancreas. - BP 174/74, monitored. - CTA of the chest abdomen pelvis interpreted by radiology:No evidence of aortic dissection or pulmonary emboli. 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 Small amount of ascites around the liver and spleen and in the paracolic colic gutters and lower quadrants. - Delta troponin at 1 hour negative. Given concerning presentation, plan to hospitalize for further observation rule out NSTEMI. Final Assessment: Severe chest pain, reduced with nitroglycerin, recurred intermittently. EKG normal. Blood tests and CT scan for further evaluation. Elevated BP, monitored. Clinical Impression: - Chest pain - Elevated BP This document was written with the assistance of JOSLYN Sanford. The patient consented to its use. Medical Records Medical records reviewed: Yes I reviewed the patient's medical records. Medical records narrative: MPI 12/14/2023: Stress ECG Conclusion 1. Resting EKG showed nondiagnostic ST abnormalities 2. Patient underwent testing using pharmacologic stress with regadenosan 3. Peak heart rate achieved was 74% of predicted for age 4. The electrocardiographic portion of the test was nondiagnostic 5. See MPI report Stress Test Summary [id number] 1 min post Lexiscan [id number] 3 min post Lexiscan [id number]/10 chest pain 6 min post Lexiscan [id number]/74 9 min post Lexiscan [id number]/70 12 min post Lexiscan [id number]/[id number]/[address] depressions noted and not returning to baseline by 12 minutes post lexiscan injection. Patient notes 1/10 chest pressure at this time and is in no apparent distress. Dr. Nicole notified and ok for patient to proceed to imaging. MPI Conclusion Myocardial perfusion is normal. There is no ischemia or evidence of prior infarction EF is 60%. Wall motion is normal Lab Data Lab results reviewed: Yes I reviewed the patient's lab results. Labs: Laboratory Tests Range/Units 03/10/25 03/10/25 03/10/25 10:33 11:33 13:29 WBC (4.4-10.8) 10^3/uL 4.29 L RBC (4.36-5.78) 10^6/uL 4.54 Hgb (13.5-17.5) g/dL 14.4 Hct (40.0-50.0) % 40.4 MCV (80-95) fL 89 MCH (27.0-33.0) pg 31.7 MCHC (32.0-36.0) % 35.6 RDW (11.8-14.1) % 12.1 Plt Count (130-400) 10^3/uL 171 MPV (8.0-11.0) fL 10.0 Immature Gran % % 1.4 Neutrophils % % 64.8 Lymphocytes % % 21.7 Monocytes % % 7.0 Eosinophils % % 4.4 Basophils % % 0.7 Nucleated RBC % (0.0-0.3) % 0.0 Absolute Neutrophils (1.2-6.7) 10^3/uL 2.78 Absolute Lymphocytes (1.2-3.4) 10^3/uL 0.93 L Absolute Monocytes (0.1-0.8) 10^3/uL 0.30 Absolute Eosinophils (0.0-0.7) 10^3/uL 0.19 Absolute Basophils (0.0-0.2) 10^3/uL 0.03 APTT (20.6-30.2) sec 25.9 Sodium (136-145) mmol/L 138 Potassium (3.5-5.1) mmol/L 3.8 Chloride (98-107) mmol/L 101 Carbon Dioxide (21.0-32.0) mmol/L 30.5 Anion Gap (3-11) mmol/L 6.5 BUN (7-18) mg/dL 26 H Creatinine (0.70-1.30) mg/dL 0.9 Est GFR (CKD-EPI 2020) (mL/min/1.73m2) 86.88 Glucose (74-106) mg/dL 182 H Calcium (8.5-10.1) mg/dL 8.9 Total Bilirubin (0.2-1.0) mg/dL 0.7 AST (15-37) U/L 30 ALT (16-63) U/L 52 Alkaline Phosphatase (46-116) U/L 71 Troponin I (<or=76) ng/L 8 8 9 Total Protein (6.4-8.2) g/dL 6.9 Albumin (3.4-5.0) g/dL 3.7 Lipase (<78) U/L 34 PFSH All Active Problems (Updated 03/10/25 @ 15:00 by Paul Mackey MD) Hyperglycemia (Acute) Hypertension (Chronic) Chest pain (Acute) Adynamic ileus (Acute) Choledocholithiasis with acute cholecystitis (Acute) Arteriosclerotic vascular disease (Chronic) Hypertriglyceridemia (Chronic) Cholelithiasis (Acute) Elevated liver function tests (Acute) Acute pancreatitis (Acute) Epigastric abdominal pain (Acute) Arthritis of right shoulder region (Acute) Left rotator cuff tear (Acute ~12/09/22) Shoulder pain (Acute) Closed head injury with concussion (Acute) Hematoma of left parietal scalp (Acute) Chest wall contusion (Acute) Medical History Hypercholesterolemia Hypothyroid HTN (hypertension) BPH (benign prostatic hyperplasia) Social History Smoking/Tobacco Use Status: Never Smoking risk assessment performed?: Yes Alcohol Intake: current Alcohol Intake frequency: holidays/special occasions only Alcohol type: beer Drug use: Never Substance use type: does not use Housing: house Current gender identity: male Do you feel safe at home: Yes Do you feel safe in your relationship?: Yes Additional Social history: at bedside
[2025-03-10 13:59] LABS: Troponin I 9 ng/L (<or=76)
--- NOTE | 2025-03-10 14:24 | NUR.NOTE ---
[facility]. Bahman stated that if they call within 3 days that the [facility] would [facility]. The phone number to [facility] was given to the of the patient to call once the patient is admitted. [phone]. Nursing Note:
--- NOTE | 2025-03-10 14:29 | W.PM.HP.N ---
Date of service: 03/10/25 Time of Service: 14:29 Assessment and Plan Assessment and plan (1) Chest pain: Status: Inactive Assessment and plan: - Patient initially presented with chest pain concerning for ACS - EKG without any changes or ST elevation, depression or T wave inversions - First 2 troponins negative - Will follow-up third troponin as well as a.m. troponin - Will continue to monitor patient on telemetry overnight (2) Hypertriglyceridemia: Status: Chronic Assessment and plan: - Continue home ezetimibe (3) HTN (hypertension): Assessment and plan: - Continue home amlodipine and lisinopril/HCTZ (4) Hypothyroid: Assessment and plan: - Continue home levothyroxine History of Present Illness History of Present Illness Chief Complaint: chest pain Narrative: 79-year-old male with a past medical history hypertension hyperlipidemia, hypothyroidism who presents to the emergency department with chest pain. Patient reports prior to arrival he experienced sudden onset of sharp substernal chest pain at around 830 while making his coffee, stating he was about 9 out of 10 and felt like he was kicked in the chest. He took nitroglycerin, rested that resulted in reduction of his pain to about a 5 out of 10 but it recurred 10 to 15 minutes later. He denies pain radiating, any headache, lightheadedness, dizziness, shortness of breath, nausea, vomiting or diaphoresis. In the emergency department the patient was noted as having normal vital signs with exception of slightly elevated blood pressure with systolic 174/74. Physical exam was unremarkable and EKG was without any acute findings including ST elevations, depressions, or T wave inversions. CBC and CMP were unremarkable, and initial 2 troponins were both negative. However, given patient's presenting symptoms emergency room provider paged hospitalist for admission for patient to observation status for ongoing cardiac monitoring and repeat troponins. Review of Systems All systems reviewed & are unremarkable except as noted in HPI and below PFSH All Active Problems (Updated 03/10/25 @ 15:35 by AMARI FINN) Hyperglycemia (Acute) Hypertension (Chronic) Chest pain (Acute) Adynamic ileus (Acute) Choledocholithiasis with acute cholecystitis (Acute) Arteriosclerotic vascular disease (Chronic) Hypertriglyceridemia (Chronic) Cholelithiasis (Acute) Elevated liver function tests (Acute) Acute pancreatitis (Acute) Epigastric abdominal pain (Acute) Arthritis of right shoulder region (Acute) Left rotator cuff tear (Acute ~12/09/22) Shoulder pain (Acute) Closed head injury with concussion (Acute) Hematoma of left parietal scalp (Acute) Chest wall contusion (Acute) Medical History Hypercholesterolemia Hypothyroid HTN (hypertension) BPH (benign prostatic hyperplasia) Social History Smoking/Tobacco Use Status: Never Smoking risk assessment performed?: Yes Alcohol Intake: current Alcohol Intake frequency: holidays/special occasions only Alcohol type: beer Drug use: Never Substance use type: does not use Housing: house Current gender identity: male Do you feel safe at home: Yes Do you feel safe in your relationship?: Yes Additional Social history: at bedside Meds Allergies and Home Medications Allergies Allergy/AdvReac Type Severity Reaction Status Date / Time Tyldogg-DPP-TkH Reductase AdvReac Unknown Other (See Unverified 03/10/25 10:17 Inhibitor Comment) Home Medications ?Medication ?Instructions ?Recorded ?Confirmed ?Type amlodipine 10 mg tablet 10 mg PO DAILY 11/18/13 03/10/25 History levothyroxine 25 mcg tablet 75 mcg PO DAILY@0600 11/18/13 03/10/25 History lisinopril 20 1 tab PO DAILY 11/18/13 03/10/25 History mg-hydrochlorothiazide 25 mg tablet aspirin 81 mg tablet,delayed 81 mg PO DAILY 10/10/16 03/10/25 History release (Aspir-) ezetimibe 10 mg tablet 10 mg PO DAILY 12/27/22 03/10/25 History tadalafil 20 mg tablet 20 mg PO DAILY PRN 12/27/22 03/10/25 History tamsulosin 0.4 mg capsule (Flomax) 0.4 mg PO QHS 12/13/23 03/10/25 History Exam Narrative Exam Narrative: Well-appearing older gentleman laying in bed in no acute distress, ANO x 4, heart regular rhythm, lungs good auscultation bilaterally, abdomen soft, nontender, nondistended Results Labs 03/10/25 10:33 03/10/25 10:33 Labs: Laboratory Results - last 24 hr 03/10/25 03/10/25 03/10/25 10:33 11:33 13:29 WBC 4.29 L RBC 4.54 Hgb 14.4 Hct 40.4 MCV 89 MCH 31.7 MCHC 35.6 RDW 12.1 Plt Count 171 MPV 10.0 Immature Gran % 1.4 Neutrophils % 64.8 Lymphocytes % 21.7 Monocytes % 7.0 Eosinophils % 4.4 Basophils % 0.7 Nucleated RBC % 0.0 Absolute Neutrophils 2.78 Absolute Lymphocytes 0.93 L Absolute Monocytes 0.30 Absolute Eosinophils 0.19 Absolute Basophils 0.03 APTT 25.9 Sodium 138 Potassium 3.8 Chloride 101 Carbon Dioxide 30.5 Anion Gap 6.5 BUN 26 H Creatinine 0.9 Est GFR (CKD-EPI 2020) 86.88 Glucose 182 H Calcium 8.9 Total Bilirubin 0.7 AST 30 ALT 52 Alkaline Phosphatase 71 Troponin I 8 8 9 Total Protein 6.9 Albumin 3.7 Lipase 34 Last Vital Signs Temp 98.2 F 03/10/25 10:40 Pulse 66 03/10/25 14:15 Resp 17 03/10/25 14:15 BP 183/89 H 03/10/25 14:15 Pulse Ox 93 03/10/25 14:15 Time Spent Time spent with Patient: >75 minutes Time was spent: preparing to see the patient(eg.review tests), obtaining and/or reviewing separately otained hiistory, ordering medications,tests, procedures, referring, communicating with other health weekend caregiver, indepentently interpreting results, counseling the patient and care coordination
[2025-03-10] MEDS: Aspirin 325 MG TAB PO (14:35)
--- NOTE | 2025-03-10 15:15 | W.PC.ACHO ---
Registration Status: REG ER Primary Language: Preferred Language: Indonesian ED Information & Data Chief Complaint Chest Pain 03/10/25 13:43 Triage Note Patient complaining of 03/10/25 10:13 epigastric pain started around 0830 today while eating breakfast. Some relief with 1 nitro Medical / Surgical History (Last Reviewed 03/10/25 @ 13:39 by Paul Mackey MD) Hypercholesterolemia Hypothyroid HTN (hypertension) BPH (benign prostatic hyperplasia) Most Recent Vital Signs Temperature 36.8 C 03/10/25 10:40 Pulse 68 03/10/25 15:13 Pulse 67 03/10/25 15:10 Respiratory Rate 18 03/10/25 15:13 Respiratory Effort Normal, Non-Labored 03/10/25 10:49 Respiratory Depth Normal 03/10/25 10:49 Respiratory Pattern Normal 03/10/25 10:49 Blood Pressure 217/90 H 03/10/25 15:01 Blood Pressure Mean 137 03/10/25 15:01 Pulse Oximetry 97 03/10/25 15:13 Pain Level 1 03/10/25 11:19 Allergies Bcmcdja-TQO-TzC Reductase Inhibitor Adverse Reaction (Unknown, Unverified 03/10/25 10:17) Other (See Comment) Active Medications Generic Name Dose Route Start Last Admin Trade Name Freq PRN Reason Stop Dose Admin Iohexol 100 ml 03/10/25 12:45 03/10/25 12:32 Omnipaque 350 Mg/Ml 100 Ml Btl IJ 04/09/25 23:59 100 ml DIRECTED MARCELINO Administration Nitroglycerin 0.4 mg 03/10/25 11:09 03/10/25 11:14 Nitroglycerin 0.4 Mg Tab SL 0.4 mg Q5 MIN PRN X3 PRN Administration Sodium Chloride 50 ml 03/10/25 12:45 03/10/25 12:33 Normal Saline - Diluent 50 Ml Vial IJ 50 ml .FOR DI USE MARCELINO Administration IV IV Catheter Type [Right Diffusics Antecubital] IV Catheter Gauge [Right 20 Antecubital] Diagnostics 03/10/25 03/10/25 03/10/25 Range/Units 13:29 11:33 10:33 WBC 4.29 L (4.4-10.8) 10^3/uL RBC 4.54 (4.36-5.78) 10^6/uL Hgb 14.4 (13.5-17.5) g/dL Hct 40.4 (40.0-50.0) % MCV 89 (80-95) fL MCH 31.7 (27.0-33.0) pg MCHC 35.6 (32.0-36.0) % RDW 12.1 (11.8-14.1) % Plt Count 171 (130-400) 10^3/uL MPV 10.0 (8.0-11.0) fL Immature Gran % 1.4 % Neutrophils % 64.8 % Lymphocytes % 21.7 % Monocytes % 7.0 % Eosinophils % 4.4 % Basophils % 0.7 % Nucleated RBC % 0.0 (0.0-0.3) % Absolute Neutrophils 2.78 (1.2-6.7) 10^3/uL Absolute Lymphocytes 0.93 L (1.2-3.4) 10^3/uL Absolute Monocytes 0.30 (0.1-0.8) 10^3/uL Absolute Eosinophils 0.19 (0.0-0.7) 10^3/uL Absolute Basophils 0.03 (0.0-0.2) 10^3/uL APTT 25.9 (20.6-30.2) sec Sodium 138 (136-145) mmol/L Potassium 3.8 (3.5-5.1) mmol/L Chloride 101 (98-107) mmol/L Carbon Dioxide 30.5 (21.0-32.0) mmol/L Anion Gap 6.5 (3-11) mmol/L BUN 26 H (7-18) mg/dL Creatinine 0.9 (0.70-1.30) mg/dL Est GFR (CKD-EPI 2020) 86.88 (mL/min/1.73m2) Glucose 182 H (74-106) mg/dL Calcium 8.9 (8.5-10.1) mg/dL Total Bilirubin 0.7 (0.2-1.0) mg/dL AST 30 (15-37) U/L ALT 52 (16-63) U/L Alkaline Phosphatase 71 (46-116) U/L Troponin I 9 8 8 (<or=76) ng/L Total Protein 6.9 (6.4-8.2) g/dL Albumin 3.7 (3.4-5.0) g/dL Lipase 34 (<78) U/L Intake and Output - 24 Hour Total 03/10/25 10:10 thru 03/10/25 10:13 Weight 102.058 kg Falls Risk Assessment History of Falls No History 03/10/25 10:51 Contributing Factors No Factors 03/10/25 10:51 Ambulatory Aids Independent 03/10/25 10:51 Tubes/Lines None 03/10/25 10:51 Gait Evaluation No gait disturbance 03/10/25 10:51 Cognition No cognitive impairment 03/10/25 10:51 Fall Total Score 0 03/10/25 10:51 Level of Risk Standard/Low Risk 03/10/25 10:51 Problems (Last Reviewed 03/10/25 @ 13:39 by Paul Mackey MD) Hypertriglyceridemia (Chronic) Notes 03/10/25 14:24 Nursing Notes by Lilly Alicea [facility]. Bahman stated that if they call within 3 days that the [facility] would [facility]. The phone number to [facility] was given to the of the patient to call once the patient is admitted. [phone]. Nursing Note: Initialized on 03/10/25 14:24 - END OF NOTE v v v v v v v v v Sending and/or Receiving Nurses: Please use comment section below to note any information pertinent to the patient hand-off not included above. Information / Comments: Report received from: Michael TONG (Emergency department [id number])
--- NOTE | 2025-03-10 15:45 | RT.EKG_ITS ---
APPROVED REPORT Exam: Resting ECG Reason for Exam: Chest pain Patient Location: I HR:73 bpm ECG Measurements Heart Rate 73 AXIS AZ 179 P 15 QRSd 96 QRS 61 QT 392 T 121 QTc 432 Conclusion Sinus rhythm...normal P axis, V-rate 50- 99 Abnormal inferior Q waves...Qs add to 80 mS in II III aVF Nonspecific T abnormalities, lateral leads...T <-0.10mV, I aVL V5 V6
[2025-03-10 17:11] LABS: Troponin I 10 ng/L (<or=76)
[2025-03-10] MEDS: MORPHine 2 MG/ML SYR 1 MG IVP (18:07)
--- NOTE | 2025-03-10 18:15 | RT.EKG_ITS ---
APPROVED REPORT Exam: Resting ECG Reason for Exam: chest pain Patient Location: I HR:72 bpm ECG Measurements Heart Rate 72 AXIS MD 165 P -10 QRSd 94 QRS 67 QT 413 T 87 QTc 453 Conclusion Sinus rhythm...normal P axis, V-rate 50- 99 Atrial premature complex...SV complex w/ short R-R interval Abnormal inferior Q waves...Qs add to 80 mS in II III aVF Nonspecific T abnrm, anterolateral leads...T <-0.10mV, I aVL V2-V6
[2025-03-10 19:08] LABS: Troponin I 14 ng/L (<or=76)
--- NOTE | 2025-03-10 20:50 | SCONE_ITS ---
Date of service: 03/11/25 Time of Service: 07:36 Assessment and Plan Assessment and plan (1) Median arcuate ligament syndrome: Status: Acute Assessment and plan: Although the symptoms are a bit non-specific, and while there certainly might be some celiac stenosis, I think the imaging is most consistent with median arcuate ligament syndrome. This is most obvious on the sagittal imaging, where the origin of the celiac is clearly seen above the diaphragm with caudal depression and agulation of the trifurcation. There also appears to be post stenotic dilation of the celiac after it passes below the median arcuate ligament. I dont think there is any concern for life threatening ischemia here. He has a widely patent SMA and what appear to be a healthy collateral system with perfusion of the splenic, common hepatic and even left gastric arteries. I suggest referral to a center with experience treating this problem, which might be as far as [place] or [place]. Ganglion plexus block can be used to help prove the diagnosis, but I think the imaging is fairly conclusive. I suspect this will requre division of the median arcuate ligament, but endovascular therapies have also been described. History of Present Illness History of Present Illness Chief Complaint: Midepigastric pain Narrative: Michael is 79 years old. Came to the emergency department yesterday after the acute onset of midepigastric pain. He describes it as sharp and stabbing. It radiated across both the right and left sides of the abdomen along the costal margin. It started when he was preparing some coffee in the microwave around breakfast time. It sounds like it had a little bit of a waxing and waning characteristic to it, but it never really improved, so he came to the ER with concerns of a heart attack. Pain eventually did resolve, but came back last evening around 6. He does not recall doing anything out of the ordinary. As he remembers, he had already eaten dinner. He denied any nausea or vomiting. He had a mild elevation of serum lactate around that time. Pain is similar to what he has experienced in the past, although that was attributed to gallstone pancreatitis. It is hard for him to recall if he is had similar episodes in the interim. [facility] All Active Problems (Updated 03/10/25 @ 20:51 by Irvin Lozoya MD) Median arcuate ligament syndrome (Acute) Hyperglycemia (Acute) Hypertension (Chronic) Chest pain (Acute) Adynamic ileus (Acute) Choledocholithiasis with acute cholecystitis (Acute) Arteriosclerotic vascular disease (Chronic) Hypertriglyceridemia (Chronic) Cholelithiasis (Acute) Elevated liver function tests (Acute) Acute pancreatitis (Acute) Epigastric abdominal pain (Acute) Arthritis of right shoulder region (Acute) Left rotator cuff tear (Acute ~12/09/22) Shoulder pain (Acute) Closed head injury with concussion (Acute) Hematoma of left parietal scalp (Acute) Chest wall contusion (Acute) Medical History Hypercholesterolemia Hypothyroid HTN (hypertension) BPH (benign prostatic hyperplasia) Social History Smoking/Tobacco Use Status: Never Smoking risk assessment performed?: Yes Alcohol Intake: current Alcohol Intake frequency: holidays/special occasions only Alcohol type: beer Drug use: Never Substance use type: does not use Housing: house Current gender identity: male Do you feel safe at home: Yes Do you feel safe in your relationship?: Yes Additional Social history: at bedside Exam GI Other: His abdomen is soft, nondistended, and not at all tender. He has no guarding. He has got well-healed surgical scars. Results Last Vital Signs Temp 97.9 F 03/10/25 15:49 Pulse 62 03/10/25 19:09 Resp 18 03/10/25 19:09 BP 153/71 H 03/10/25 19:09 Pulse Ox 94 03/10/25 19:09 Labs 03/11/25 05:44 03/11/25 05:44 Labs: Laboratory Results - last 24 hr 03/10/25 03/10/25 03/10/25 10:33 11:33 13:29 WBC 4.29 L RBC 4.54 Hgb 14.4 Hct 40.4 MCV 89 MCH 31.7 MCHC 35.6 RDW 12.1 Plt Count 171 MPV 10.0 Immature Gran % 1.4 Neutrophils % 64.8 Lymphocytes % 21.7 Monocytes % 7.0 Eosinophils % 4.4 Basophils % 0.7 Nucleated RBC % 0.0 Absolute Neutrophils 2.78 Absolute Lymphocytes 0.93 L Absolute Monocytes 0.30 Absolute Eosinophils 0.19 Absolute Basophils 0.03 APTT 25.9 Sodium 138 Potassium 3.8 Chloride 101 Carbon Dioxide 30.5 Anion Gap 6.5 BUN 26 H Creatinine 0.9 Est GFR (CKD-EPI 2020) 86.88 Glucose 182 H Calcium 8.9 Total Bilirubin 0.7 AST 30 ALT 52 Alkaline Phosphatase 71 Troponin I 8 8 9 Total Protein 6.9 Albumin 3.7 Lipase 34 03/10/25 03/10/25 16:45 18:42 WBC RBC Hgb Hct MCV MCH MCHC RDW Plt Count MPV Immature Gran % Neutrophils % Lymphocytes % Monocytes % Eosinophils % Basophils % Nucleated RBC % Absolute Neutrophils Absolute Lymphocytes Absolute Monocytes Absolute Eosinophils Absolute Basophils APTT Sodium Potassium Chloride Carbon Dioxide Anion Gap BUN Creatinine Est GFR (CKD-EPI 2020) Glucose Calcium Total Bilirubin AST ALT Alkaline Phosphatase Troponin I 10 14 Total Protein Albumin Lipase
--- NOTE | 2025-03-10 21:20 | CE_ITS ---
Date of service: 03/10/25 Time of Service: 23:00 Event Note: This is a 79-year-old male patient who had recurrent epigastric and retrosternal discomfort beginning last spring 2023 resulted in cardiac evaluation with myocardial perfusion stress test 12/14/2023 which was negative with no previous scars indicating infarction or reduced left ventricular ejection fraction. He had had a CTA of the chest/abdomen and pelvis 12/13/2023 which was essentially normal with a normal celiac axis perfusion. He presented with retrosternal chest pain after that cardiac evaluation and was eventually diagnosed with choledocholithiasis with acute pancreatitis in April 2024. 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 He did have nitroglycerin sublingually prescribed during the spring 2023 because of his possibility of angina Yahaira during the workup. After ERCP and laparoscopic cholecystectomy, the patient stopped having his retrosternal chest pressure symptoms which were intermittent and recurrent before the procedure. He was able to eat normally except for heavily fried food which will cause diarrhea. The day of presentation this hospitalization patient had sudden onset of retrosternal chest pain in the lower chest similar to his previous episodes with nausea and was prompted by drinking coffee with no meals and was at rest. It slowly improved with nitroglycerin sublingually which was old and not causing headache, but when he ate breakfast it worsened. He reports the ED with his retrosternal chest pain described as greater than 8 out of 10 and it did respond to scription sublingually. He had negative troponins and negative EKG changes with his episodes. His pain persisted but was waxing and waning after he was hospitalized with the pain never completely resolved. He was given morphine and nitroglycerin for his ches t discomfort. Repeated EKGs and troponins were negative. At the time I saw the patient he was having residual retrosternal chest discomfort which increased to over 5 out of 10 and was responding to nitroglycerin sublingually. His EKG and troponin measurements were negative. His lactate was slightly up at 2.4 and I did consult general surgery about his persistent celiac artery stenosis by CTA debby fletcher. Dr. Lozoya thought that the defect in the celiac artery was more of a median arcuate ligament syndrome with compression and this was confirmed by review with [place] [facility] [facility] and evaluation of his celiac artery stenosis with them deferring transfer stating that tertiary care would be a better transfer with still the question of nitroglycerin responsive chest pain despite negative cardiac evaluation with these events. I did discuss case with [facility] [place] who agreed with Dr. Lozoya and although there was no vascular intervention needed for his defect on static artery. They thought it most likely was not resulting in his symptoms and with nitroglycerin responsive chest pain when recurring, cardiology should be considered for evaluation with cardiac catheterization if persisting. The patient's chest pain did completely resolve later in my shift before midnight and did not recur. I did not discuss case with [facility] [place] and did not heparinize the patient because of surgery stating this most likely was not an ischemic bowel event. There is no evidence of ischemic cardiac process unless this is unstable angina with no change in EKG and troponins during events. If he has recurrent chest pain I will reach out again to [facility] [place] to discuss the possibility of initiating heparin and transferring for cardiac catheterization for unstable angina. The patient was agreeable with this plan and was comfortable the rest of the night with no calls for recurrent retrosternal chest pain. Throughout his episodes his abdominal pain was essentially benign with only minimal discomfort over his left abdomen but my exam and bowel sounds were slightly decreased but present in all quadrants. His heart exam was also unrevealing. He is a full code. Assessment/plan: 79-year-old gentleman with recurrent respiratory chest pain responsive to nitroglycerin with unclear etiology but not appearing to be associated with ischemic bowel disease by discussion with at least 2 surgeons. Because he is pain-free he will be no further investigations tonight and if he does have recurrent chest pain at rest, cardiology at [facility] will be called and be engaged with his care. It is reassuring he had a negative myocardial perfusion scan in December 2023. At this point this is atypical chest pain with no clear etiology. Time Spent with Patient Time spent in critical care(minutes): 60 Time Spent Included: Coordination of care, Chart review, Documenting critically ill care, Time at immediate bedside, Discussing critically ill care with other medical staff, Discussing Hx and/or treatment with family and Other (I reviewed the patient's case and care plan with the [facility] for possible transfer which was declined and [facility] [place] through the transfer center who reassured that this was not an acute vascular surgery issue but recommended discussion with cardiology if recurring.)
[2025-03-10 21:22] LABS: Troponin I 19 ng/L (<or=76)
[2025-03-10] MEDS: Atorvastatin 40 MG TAB 80 MG PO (22:30)
[2025-03-10] MEDS: Tamsulosin 0.4 MG CAPCR PO (22:31)
[2025-03-10] MEDS: Insulin Aspart 300 UNITS/3 ML PEN SC (23:06)
[2025-03-11] VITALS (21 sets, daily range): BP systolic 132–159; BP diastolic 70–96; PULSE 59–82; RESP 7–26; TEMP 36.9–37.1; O2SAT 90–96
[2025-03-11] MEDS: Levothyroxine 75 MCG TAB PO (05:32)
[2025-03-11 05:54] LABS: HCT 41.8 % (40.0-50.0); HGB 14.7 g/dL (13.5-17.5); MCH 30.8 pg (27.0-33.0); MCHC 35.2 % (32.0-36.0); MCV 88 fL (80-95); MPV 9.9 fL (8.0-11.0); Platelet Count 160 10^3/uL (130-400); RBC 4.77 10^6/uL (4.36-5.78); RDW 12.0 % (11.8-14.1); RDW-SD 38.7 fL; WBC 7.02 10^3/uL (4.4-10.8)
[2025-03-11 06:21] LABS: Anion Gap 7.9 mmol/L (3-11); BUN 19 mg/dL (7-18); CO2 30.1 mmol/L (21.0-32.0); Calcium 9.3 mg/dL (8.5-10.1); Chloride 103 mmol/L (98-107); Estimated GFR 90.02 (mL/min/1.73m2); Glucose 114 mg/dL (74-106); Magnesium 2.0 mg/dL (1.8-2.4); Potassium 3.5 mmol/L (3.5-5.1); Sodium 141 mmol/L (136-145); Troponin I 12 ng/L (<or=76)
[2025-03-11] MEDS: Lisinopril 20 MG TAB PO (09:00)
[2025-03-11] MEDS: hydroCHLOROthiazide 25 MG TAB PO (09:03)
[2025-03-11] MEDS: amLODIPine 10 MG TAB PO (09:03)
[2025-03-11] MEDS: Aspirin E.C. 81 MG TABEC PO (09:04)
[2025-03-11] MEDS: Ezetimibe 10 MG TAB PO (09:04)
[2025-03-11] MEDS: Normal Saline Flush 10 ML SYR IVP (09:09)
--- NOTE | 2025-03-11 13:25 | W.PM.DS.N ---
Date of service: 03/11/25 Time of Service: 13:25 DS: Diagnosis Discharge Diagnosis (1) Median arcuate ligament syndrome: Status: Acute Discharge Plan Disposition Patient Disposition: Home Condition: Good Discharge Details Reason For Visit: Atypical chest pain Admit Date/Time: 03/10/25 14:29 Admit Provider: Adi Conrad Attending Provider: Adi Conrad Primary Care Provider: Chan Martinez Hospital Course Hospital Course: Patient initially presented with signs and symptoms concerning for ACS. However, EKG was without any concerning findings and troponins remained negative. Upon further investigation patient had cardiac catheterization about a year ago that did not have any coronary artery disease. 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 Prior to discharge, discussed with [facility] who said cardiothoracic surgery typically handles these patients, and would be amenable to a referral being placed. Was explained to the patient that if he does not hear from [facility] cardiothoracic surgery to set up an appointment within the next week that he should reach out to them and let them know that referral was sent. However, at this time is determined the patient was stable for discharge home. Home Meds and New Rx's Prescriptions: Continued aspirin [Aspir-81] 81 MG tablet,delayed release (DR/EC) 81 mg PO DAILY ezetimibe 10 mg tablet 10 mg PO DAILY tadalafil 20 mg tablet 20 mg PO DAILY PRN Rx Instructions: administer approximately 30min before sexual activity; do not use more than 1 dose per 24hrs levothyroxine 25 MCG tablet 75 mcg PO DAILY@0600 amlodipine 10 MG tablet 10 mg PO DAILY lisinopril-hydrochlorothiazide 1 EACH tablet 1 tab PO DAILY Rx Instructions: Lisinopril 20mg/HCTZ 25mg tamsulosin [Flomax] 0.4 mg capsule 0.4 mg PO QHS Discharge Instructions Referrals: [facility] [Outside, Cardiovascular/Thoracic Surg] - 03/17/25 Referral Note: MALS, has had CTs and negative cardiac workup Activity:: Activity as Tolerated Equipment/Supplies:: No Equipment Needed Diet:: As Tolerated Discharge Orders Discharge Orders: Discharge Order (Routine); Ordered 03/11/25 Ordered By: Adi Conrad DS: Summary Time Spent with Patient providing and/or coordinating discharge services: Greater than 30 minutes Status at Discharge Functional status at discharge: independent ambulation Overall status at discharge: patient is back to baseline Mental Status: mental status grossly normal Speech and Movement: speech and movement normal Mood: congruent mood Affect: normal affect Quality:SDOH Health Related Social Needs: Health related social needs risk of homeless education Health related social needs details Steady housing, no fear of loosing housing. Health related social needs details: Steady housing, no fear of loosing housing. Exam Narrative Exam Narrative: Well-appearing older gentleman laying in bed in no acute distress, ANO x 4, heart regular rhythm, lungs good auscultation bilaterally, abdomen soft, nontender, nondistended Psych Mental Status: mental status grossly normal Speech and Movement: speech and movement normal Mood: congruent mood Affect: normal affect DS: Data Vitals/I&O Vitals and I&O: Vital Signs Temperature 98.8 F 03/11/25 13:04 Temperature Source Temporal Artery Scan 03/11/25 13:04 Pulse 74 03/11/25 13:04 Pulse Rhythm Regular 03/10/25 15:49 Pulse 78 03/11/25 12:55 Respiratory Rate 15 03/11/25 12:55 Respiratory Effort Normal 03/10/25 19:09 Respiratory Depth Normal 03/10/25 19:09 Respiratory Pattern Normal 03/10/25 19:09 Blood Pressure 152/96 H 03/11/25 13:04 Blood Pressure Mean 114 03/11/25 13:04 Blood Pressure Position Supine 03/10/25 19:09 Pulse Oximetry 96 03/11/25 12:55 Oxygen Delivery Method Room Air 03/11/25 13:04 Oxygen Flow Rate 0 03/11/25 13:04 Pain Level 0 03/11/25 13:04 Intake & Output 03/10/25 03/11/25 03/11/25 17:59 05:59 17:59 Intake Total 420 / 420 Output Total 1300 / 1300 700 / 700 Balance -1300 / -1300 -280 / -280 Weight 228 lb 2.855 oz 227 lb 11.8 oz Intake: Oral 420 / 420 Output: Urine 1300 / 1300 700 / 700 Other: Urine Color Pale Yellow Urine Appearance Clear Clear Urine Odor None Stool Size Small Stool Characteristics Formed Data Completed and Pending Labs on day of discharge: Labs from last 24 hours 03/11/25 03/10/25 03/10/25 05:44 20:45 18:42 WBC 7.02 RBC 4.77 Hgb 14.7 Hct 41.8 MCV 88 MCH 30.8 MCHC 35.2 RDW 12.0 Plt Count 160 MPV 9.9 VBG Lactate 1.9 2.4 H* Sodium 141 Potassium 3.5 Chloride 103 Carbon Dioxide 30.1 Anion Gap 7.9 BUN 19 H Creatinine 0.8 Est GFR (CKD-EPI 2020) 90.02 Glucose 114 H Calcium 9.3 Magnesium 2.0 Troponin I 12 19 14 03/10/25 03/10/25 16:45 13:29 WBC RBC Hgb Hct MCV MCH MCHC RDW Plt Count MPV VBG Lactate Sodium Potassium Chloride Carbon Dioxide Anion Gap BUN Creatinine Est GFR (CKD-EPI 2020) Glucose Calcium Magnesium Troponin I 10 9 PFSH All Active Problems (Updated 03/10/25 @ 20:51 by Irvin Lozoya MD) Median arcuate ligament syndrome (Acute) Hyperglycemia (Acute) Hypertension (Chronic) Chest pain (Acute) Adynamic ileus (Acute) Choledocholithiasis with acute cholecystitis (Acute) Arteriosclerotic vascular disease (Chronic) Hypertriglyceridemia (Chronic) Cholelithiasis (Acute) Elevated liver function tests (Acute) Acute pancreatitis (Acute) Epigastric abdominal pain (Acute) Arthritis of right shoulder region (Acute) Left rotator cuff tear (Acute ~12/09/22) Shoulder pain (Acute) Closed head injury with concussion (Acute) Hematoma of left parietal scalp (Acute) Chest wall contusion (Acute) Medical History Hypercholesterolemia Hypothyroid HTN (hypertension) BPH (benign prostatic hyperplasia) Social History Smoking/Tobacco Use Status: Never Smoking risk assessment performed?: Yes Alcohol Intake: current Alcohol Intake frequency: holidays/special occasions only Alcohol type: beer Drug use: Never Substance use type: does not use Housing: house Current gender identity: male Do you feel safe at home: Yes Do you feel safe in your relationship?: Yes Additional Social history: at bedside Time Spent with Patient Time Spent with Patient: <45 minutes Time was spent: preparing to see the patient(eg.review tests), obtaining and/or reviewing separately otained hiistory, ordering medications,tests, procedures, referring, communicating with other health transitional care nurse, indepentently interpreting results, counseling the patient and care coordination
== END 2025-03-11 13:40 | disposition home or self-care (01) ==
LOC: ER 15:00 → MS 15:34 → ICU 20:00
PROVIDERS: Family Medicine; Admitting Provider Family Medicine; Emergency Provider Student in an Organized Health Care Education/Training Program; PCP Internal Medicine; Responsible Provider Family Medicine; Visit Provider Family Medicine
DX: R07.89 Other chest pain (principal); I77.4 Celiac artery compression syndrome; I10 Essential (primary) hypertension; E87.1 Hypo-osmolality and hyponatremia; E03.9 Hypothyroidism, unspecified; R94.31 Abnormal electrocardiogram [ECG] [EKG]; R10.13 Epigastric pain; N40.0 Benign prostatic hyperplasia without lower urinary tract symptoms; Z79.899 Other long term (current) drug therapy
CPT/HCPCS: 00123; 36415; 71275; 80048; 80053; 83690; 85027; 93005; 96374; 99285; 74174; 83605; 83735; 84484; 85025; 85730; 93010; 99223; 99239; 99291; G0378; J1815; J2270; J3490

== ENCOUNTER 2025-05-07 12:03 | Outpatient (CLI) | payer OTHER, SELFPAY ==
--- NOTE | 2025-05-07 11:10 | DI.RAD_ITS ---
Exam(s) XR SHOULDER LT COMPLETE 2+V EXAM: XR SHOULDER LT COMPLETE 2+V CLINICAL HISTORY: LEFT SHOULDER PAIN. TECHNIQUE: 2D digital imaging was performed of the left shoulder. Two images were obtained. Grashey and axillary views were obtained. COMPARISON: CR XR SHOULDER LT COMPLETE 2+V from 01/04/2023 MR MRI, UPPER EXT, JOINT S/ CONTRA from 03/20/[address] UPPER EXTREMITY LT WO from 04/28/2025 FINDINGS: BONES: No acute fracture is present. No bony destructive lesion is seen. JOINTS: No dislocation present. There are mild degenerative changes seen at the acromioclavicular joint. The glenohumeral joint is well maintained. There is mild irregularity seen at the lateral aspect of the acromion. SOFT TISSUE: Normal. IMPRESSION: Mild degenerative changes seen at the acromioclavicular joint. DATA REPOSITORY: RADIATION DOSE DELIVERED:
== END 2025-05-07 12:04 | disposition home or self-care (01) ==
LOC: DIORS 12:03
PROVIDERS: PCP Internal Medicine; Visit Provider Student in an Organized Health Care Education/Training Program
DX: M75.102 Unspecified rotator cuff tear or rupture of left shoulder, not specified as traumatic (principal); M12.812 Other specific arthropathies, not elsewhere classified, left shoulder
CPT/HCPCS: 73030

== ENCOUNTER 2025-06-05 05:52 | Day surgery (SDC) | payer OTHER, SELFPAY ==
--- NOTE | 2025-06-04 14:10 | W.ANESPRE ---
General Info Height: 6 ft 1 in Weight: 103.419 kg Body Mass Index (BMI): 30.0 Surgical Procedure: Operation Date: 06/05/25 07:40 Proposed Procedure Side Surgeon p Shoulder Reverse Total Arthroplasty, Biceps Tenodesis (Arthrex) Left Arvin Casillas MD Meds Allergies and Home Medications Allergies Allergy/AdvReac Type Severity Reaction Status Date / Time [id number] Reductase AdvReac Unknown malaise Unverified 06/05/25 05:58 Inhibitor Home Medication ?Medication ?Instructions ?Recorded amlodipine 10 mg tablet 10 mg PO DAILY 11/18/13 levothyroxine 25 mcg tablet 75 mcg PO DAILY@0600 11/18/13 lisinopril 20 1 tab PO DAILY 11/18/13 mg-hydrochlorothiazide 25 mg tablet aspirin 81 mg tablet,delayed 81 mg PO DAILY 10/10/16 release (Aspir-) ezetimibe 10 mg tablet 10 mg PO DAILY 12/27/22 tadalafil 20 mg tablet 20 mg PO DAILY PRN 12/27/22 tamsulosin 0.4 mg capsule (Flomax) 0.4 mg PO QHS 12/13/23 finasteride 5 mg tablet 5 mg PO DAILY 04/21/25 Current Visit Medications: Current Medications Generic Name Dose Route Start Last Admin Trade Name Freq PRN Reason Stop Dose Admin Ringer's Solution 1,000 mls @ 30 mls/hr 06/05/25 06:00 IV 06/05/25 23:59 INFUSION MARCELINO Cefazolin Sodium/Dextrose 2 gm in 50 mls @ 100 mls/hr 06/05/25 06:00 Ancef Duplex IVPB 06/05/25 23:59 PREOP MARCELINO Tranexamic Acid/Sodium Chloride 1,000 mg in 100 mls @ 600 mls/hr 06/05/25 06:00 IVPB 06/05/25 23:59 PREOP MARCELINO IV Miscellaneous Supplies 1 each 06/05/25 06:00 Iv Access IV 06/05/25 23:59 DIRECTED MARCELINO Sodium Chloride 0 ml 06/05/25 06:00 Normal Saline Flush 10 Ml Syr IV 06/05/25 23:59 PRN PRN Sodium Chloride 0 ml 06/05/25 06:00 Normal Saline 10 Ml Vial IJ 06/05/25 23:59 DIRECTED PRN Sterile Water 0 ml 06/05/25 06:00 Water,Injection,Sterile 10 Ml Vial IJ 06/05/25 23:59 DIRECTED PRN PFSH Active Problems Active Problems: Problem Status Onset Code Left rotator cuff tear arthropathy Acute M75.102, M12.812 Median arcuate ligament syndrome Acute I77.4 Hyperglycemia Acute R73.9 Hypertension Chronic I10 Adynamic ileus Acute K56.0 Choledocholithiasis with acute cholecystitis Acute K80.42 Arteriosclerotic vascular disease Chronic I70.90 Hypertriglyceridemia Chronic E78.1 Cholelithiasis Acute K80.20 Elevated liver function tests Acute R79.89 Acute pancreatitis Acute K85.90 Epigastric abdominal pain Acute R10.13 Arthritis of right shoulder region Acute M19.011 Left rotator cuff tear Acute ~12/09/22 M75.102 Shoulder pain Acute M25.519 Chest wall contusion Acute S20.219A Hematoma of left parietal scalp Acute S00.03XA Closed head injury with concussion Acute S06.0XAA Medical History Medical History Hypercholesterolemia Hypothyroid HTN (hypertension) BPH (benign prostatic hyperplasia) Surgical History Surgical History History of back surgery Lumbar L4-L5 H/O shoulder surgery History of cholecystectomy Tobacco Smoking/Tobacco Use Status: Never Alcohol Alcohol Intake: current Alcohol intake frequency: holidays/special occasions only Alcohol type: beer Substance Use Substance use: Never Substance use type: does not use Details: drinks a beer if it gets above 84 degrees Vital Signs and Lab Results Vital Signs Most Recent Vital Signs in EMR: Temp Pulse Resp BP Pulse Ox 36.6 C 63 16 142/80 H 97 06/05/25 06:01 06/05/25 06:01 06/05/25 06:01 06/05/25 06:01 06/05/25 06:01 Anesthesia Assessment and Plan Anesthesia History Personal History: No History of Anesthesia Complications Family History: No Family History of Anesthesia Complications Implantable Cardiac Device Does patient have a Pacemaker or an ICD?: No Anesthesia Plan Resuscitation Status: Full Code Anesthesia Technique: General Anesthesia Airway Planned: Endotracheal Tube Pain Management: Surgeon and patient request nerve block Monitors Used: Standard Monitors Preoperative Comments:: 79 yo for total shoulder. Sig PMHx: HTN (lisinopril/HCTZ, amlodipine), hypothyroid (levothyroxine), BPH. Never smoker, occ EtOH. Stress: no diagnostic ECG. LVEF 60%, no ischemia or prior infarction. ECG: sinus.
[2025-06-05] VITALS (25 sets, daily range): BP systolic 91–149; BP diastolic 42–92; PULSE 52–76; RESP 14–27; TEMP 36–36.6; O2SAT 92–98; BMI 29.9
[2025-06-05] MEDS: Lactated Ringers 1,000 ML 30 ML IV (06:29)
--- NOTE | 2025-06-05 07:00 | W.ANESPRE ---
General Info Date of Service Date Performed: 06/05/25 Height: 6 ft 1 in Weight: 102.8 kg Body Mass Index (BMI): 29.9 Surgical Procedure: Operation Date: 06/05/25 07:40 Proposed Procedure Side Surgeon p Shoulder Reverse Total Arthroplasty, Biceps Tenodesis (Arthrex) Left Arvin Casillas MD Meds Allergies and Home Medications Allergies Allergy/AdvReac Type Severity Reaction Status Date / Time Fopayof-SOL-GoS Reductase AdvReac Unknown malaise Unverified 06/05/25 05:58 Inhibitor Home Medication ?Medication ?Instructions ?Recorded amlodipine 10 mg tablet 10 mg PO DAILY 11/18/13 levothyroxine 25 mcg tablet 75 mcg PO DAILY@0600 11/18/13 lisinopril 20 1 tab PO DAILY 11/18/13 mg-hydrochlorothiazide 25 mg tablet aspirin 81 mg tablet,delayed 81 mg PO DAILY 10/10/16 release (Aspir-) ezetimibe 10 mg tablet 10 mg PO DAILY 12/27/22 tadalafil 20 mg tablet 20 mg PO DAILY PRN 12/27/22 tamsulosin 0.4 mg capsule (Flomax) 0.4 mg PO QHS 12/13/23 finasteride 5 mg tablet 5 mg PO DAILY 04/21/25 naproxen 250 mg tablet 250 mg PO BID PRN Moderate pain 06/05/25 #25 tabs tramadol 50 mg tablet 50 mg PO TID PRN #18 tabs 06/05/25 Current Visit Medications: Current Medications Generic Name Dose Route Start Last Admin Trade Name Freq PRN Reason Stop Dose Admin Ringer's Solution 1,000 mls @ 30 mls/hr 06/05/25 06:00 06/05/25 06:29 IV 06/05/25 23:59 30 mls/hr INFUSION MARCELINO Administration Cefazolin Sodium/Dextrose 2 gm in 50 mls @ 100 mls/hr 06/05/25 06:00 Ancef Duplex IVPB 06/05/25 23:59 PREOP MARCELINO Tranexamic Acid/Sodium Chloride 1,000 mg in 100 mls @ 600 mls/hr 06/05/25 06:00 IVPB 06/05/25 23:59 PREOP MARCELINO IV Miscellaneous Supplies 1 each 06/05/25 06:00 Iv Access IV 06/05/25 23:59 DIRECTED MARCELINO Sodium Chloride 0 ml 06/05/25 06:00 Normal Saline Flush 10 Ml Syr IV 06/05/25 23:59 PRN PRN Sodium Chloride 0 ml 06/05/25 06:00 Normal Saline 10 Ml Vial IJ 06/05/25 23:59 DIRECTED PRN Sterile Water 0 ml 06/05/25 06:00 Water,Injection,Sterile 10 Ml Vial IJ 06/05/25 23:59 DIRECTED PRN PFSH Active Problems Active Problems: Problem Status Onset Code Left rotator cuff tear arthropathy Acute M75.102, M12.812 Median arcuate ligament syndrome Acute I77.4 Hyperglycemia Acute R73.9 Hypertension Chronic I10 Adynamic ileus Acute K56.0 Choledocholithiasis with acute cholecystitis Acute K80.42 Arteriosclerotic vascular disease Chronic I70.90 Hypertriglyceridemia Chronic E78.1 Cholelithiasis Acute K80.20 Elevated liver function tests Acute R79.89 Acute pancreatitis Acute K85.90 Epigastric abdominal pain Acute R10.13 Arthritis of right shoulder region Acute M19.011 Left rotator cuff tear Acute ~12/09/22 M75.102 Shoulder pain Acute M25.519 Chest wall contusion Acute S20.219A Hematoma of left parietal scalp Acute S00.03XA Closed head injury with concussion Acute S06.0XAA Medical History Medical History Hypercholesterolemia Hypothyroid HTN (hypertension) BPH (benign prostatic hyperplasia) Surgical History Surgical History History of back surgery Lumbar L4-L5 H/O shoulder surgery History of cholecystectomy Tobacco Smoking/Tobacco Use Status: Former Tobacco Use Alcohol Alcohol Intake: current Alcohol intake frequency: holidays/special occasions only Alcohol type: beer Substance Use Substance use: Never Substance use type: does not use Details: drinks a beer if it gets above 84 degrees Vital Signs and Lab Results Vital Signs Most Recent Vital Signs in EMR: Most Recent Vital Signs Temp Pulse Resp BP Pulse Ox 36.6 C 63 16 142/80 H 97 06/05/25 06:01 06/05/25 06:01 06/05/25 06:01 06/05/25 06:01 06/05/25 06:01 Anesthesia Assessment and Plan Anesthesia History Personal History: No History of Anesthesia Complications Family History: No Family History of Anesthesia Complications Exercise Tolerance Exercise Tolerance: Metabolic Equivalents>4 Pertinent Negatives Pertinent Negatives: No Symptoms of GERD, No Major Cardiovascular Symptoms or Complaints, No Major Pulmonary Symptoms or Complaints and No History of CVA/TIA Cardiac & Pulmonary Exam Cardiac Exam: Normal S1/S2 Heart Sounds Pulmonary Exam: Clear Bilateral Breath Sounds Implantable Cardiac Device Does patient have a Pacemaker or an ICD?: No Airway Exam Known Difficult Airway: No Mallampati Class: 2 Mouth Opening: Normal (> 3cm) Thyromental Distance: Greater than 3 cm Neck Range of Motion: Full ROM Neck Circumference: Normal Teeth Condition: Generalized Poor Dentition and Other (broken bqckcright bottom tooth) ASA Classification ASA Score: ASA 2 Emergency Case?: No NPO Status NPO Status: NPO Clears >2 hours, Solids >8 hours Anesthesia Plan Resuscitation Status: Full Code Anesthesia Technique: General Anesthesia Airway Planned: Endotracheal Tube Pain Management: Surgeon and patient request nerve block Monitors Used: Standard Monitors and SedLine Preoperative Comments:: 79 yo for total shoulder. Sig PMHx: HTN (lisinopril/HCTZ, amlodipine), hypothyroid (levothyroxine), BPH. Never smoker, occ EtOH. Stress: no diagnostic ECG. LVEF 60%, no ischemia or prior infarction. ECG: sinus. Discussed regional anesthesia, risks including block failure, difficulty breathing, and nerve injury. Nerve injury from a nerve block is ~1:5000, but injury can also be associated with surgery and positioning.
--- NOTE | 2025-06-05 07:08 | PDOC.DSDIS_ITS ---
Date of service: 06/05/25 Discharge Plan Disposition Patient Disposition: Home Condition: Stable Discharge Details Attending Provider: Arvin Casillas Primary Care Provider: Chan Martinez Home Meds and New Rx's Prescriptions: New naproxen 250 mg tablet 250 mg PO BID PRN (Reason: Moderate pain) Qty: 25 0RF tramadol 50 mg tablet 50 mg PO TID PRNQty: 18 0RF Continued aspirin [Aspir-81] 81 MG tablet,delayed release (DR/EC) 81 mg PO DAILY ezetimibe 10 mg tablet 10 mg PO DAILY tadalafil 20 mg tablet 20 mg PO DAILY PRN Rx Instructions: administer approximately 30min before sexual activity; do not use more than 1 dose per 24hrs finasteride 5 mg tablet 5 mg PO DAILY levothyroxine 25 MCG tablet 75 mcg PO DAILY@0600 amlodipine 10 MG tablet 10 mg PO DAILY lisinopril-hydrochlorothiazide 1 EACH tablet 1 tab PO DAILY Rx Instructions: Lisinopril 20mg/HCTZ 25mg tamsulosin [Flomax] 0.4 mg capsule 0.4 mg PO QHS Patient Comments: pt is taking once every 3 days Discharge Instructions Additional Instructions: Surgery: Left reverse total shoulder arthroplasty (constrained liner) with biceps tenodesis 06/05/2025 Activity: Do not lift anything heavier than a coffee. You should keep your arm at your side in a relatively neutral position at all times except for gentle ra nge of motion exercises, physical therapy, and essential activities. You should use the sling whenever you are out of the house. At home it is best to remove the sling and rest the arm on a pillow at your side or support the operative side with your other hand. A physical therapy prescription will be sent electronically to start in about 3 weeks. STANDARD Reverse TSA Protocol. Resume 81 mg aspirin daily, starting tomorrow morning Prescriptions: Naproxen 250 mg take 1 every 12 hours with a meal as needed for moderate pain Tramadol 50 mg take 1 every 8 hours as needed for severe pain You may use lklb-rgm-nekfoev Tylenol (acetaminophen) as needed for mild pain. These pain medications may be taken all at once or in different combinations as needed. Also, recommend Colace (docusate) as a stool softener as surgery and pain medicine cause constipation. You may try vgfv-imw-paiwhjx diphenhydramine (Benadryl) 25-50 mg nightly as a sleep aid Dressings: Leave dressing in place until follow-up. Keep clean and dry at all times. No showers please. Follow-up: 10-[address] Casillas You may take off the leg compression stockings this evening at home. You may also leave them on a few days longer if you have a history of leg swelling or edema. Please call the office during business hours with any questions or concerns. Let us know right away if you develop any redness, drainage, fevers, chest pain, or trouble breathing. Do not drink alcohol or drive for at least 24 hours after anesthesia. Discharge Orders Discharge Orders: Discharge Order (Routine); Ordered 06/05/25 Ordered By: Grayson Blackburn DS: Diagnosis Discharge Diagnosis (1) Left rotator cuff tear arthropathy: Status: Acute (2) Tendinitis of long head of biceps brachii of left shoulder: Status: Acute
--- NOTE | 2025-06-05 07:25 | ROE_ITS ---
Operative Note Operative Note PRE-OP DIAGNOSIS: Left: 1. Rotator cuff arthropathy 2. Long head of the biceps tendinopathy POST-OP DIAGNOSIS: same PROCEDURE: Left: 1. Reverse total shoulder arthroplasty, CPT # [address] 2. Open biceps tenodesis, CPT # 74432 The orthodontist assistant was medically required as this procedure involves retraction, protection of neurovascular structures, and manipulation of multiple instruments and implants at the same time, which cannot be done without a skilled orthodontist assistant. SURGEON: Arvin Casillas GARMENT FORM ASSEMBLER: Grayson Blackburn ANESTHESIA TYPE: Local By Surgeon, General LMA/ETT and Primary Nerve Block Refer to Anesthesia Record ESTIMATED BLOOD LOSS: 250 COMPLICATIONS: None Patient was transported to: PACU Patient's condition: stable Implants: Arthrex [employer] modular glenoid system baseplate 24 mm with 10 degree full wedge augment standard Ar[employer]rex [employer] modular glenoid system central post 25 mm Arthrex [employer] modular glenoid system peripheral locking screws 36 mm inferior, 36 mm superior, 20 mm posterior, 20 mm anterior Ar[employer] modular glenoid system glenosphere 42 +4 mm lateralized Ar[employer] humeral stem 135 degrees size 8 Ar[employer]rex [employer] suture cup size 42 posterior offset Arthrex [employer] humeral insert size 42+6 mm constrained Indications: Please see complete medical record for details. Findings: Significant long head biceps tenosynovitis and partial tearing, high-grade partial tearing supraspinatus and subscapularis, significant adhesions from prior open trans deltoid rotator cuff surgery. Procedure Description: In the operating room, general anesthesia was induced. The patient was positioned beachchair on the operating room table. All bony prominences were well-padded. Preoperative antibiotics were administered. The shoulder was prepped and draped in the usual sterile fashion for shoulder arthroplasty. The correct patient, procedure, and side of the procedure were all verified prior to incision. The deltopectoral approach was preinjected with 0.25% bupivacaine containing epinephrine and taken to the anterior shoulder. Care was taken to bluntly dissect the interval between the deltoid and pectoralis major muscles and to identify the cephalic vein within its fat stripe. The the vein was mobilized laterally. Subdeltoid space and conjoined tendon were freed of abundant adhesions from prior over surgery. The long head of the biceps tendon was identified just lateral to the lesser tuberosity. The uppermost margin of the pectoralis major tendon was released from the proximal humerus. The long head of the biceps tendon was tenodesed in situ using SutureTape in a dcxycs-gi-wmedk fashion securing it superior margin the pectoralis major tendon. The biceps tendon was amputated and followed proximally to identify the rotator interval. Subscapularis tenotomy was done taking care to work on bone and also release the inferior capsule laterally off the inferior neck for adequate exposure. The supraspinatus remnant was debrided. Appropriate coagulation was achieved especially interiorly. The anatomic neck was cut using an oscillating saw with the humeral head bone brought back table in case there was a need for future bone grafting. The proximal humerus was delivered from the wound with adduction and external rotation. The proximal humeral protection plate was used to provisionally confirm suture cup and glenosphere size. Reamers were started appropriately posterior to the bicipital groove taking care to maintain in line approach with the humeral canal. Sequential reaming was done from size 5 up to size 8. Next, the broaches were sequentially used to open the proximal humerus starting with a size 5 and going up to size 8 and sunk to the appropriate depth while maintaining approximately 25 degrees retroversion. There was good metaphyseal fit and rotational control of the proximal humerus with this size. The posterior offset guide was used to ream for the suture cup. Attention was then turned to the glenoid and retractors were placed and a circumferential release performed using the long head of the biceps remnant to remove soft tissue about the glenoid rim. Care was taken inferiorly to work on bone only between 5 and 7:00 o'clock and bluntly elevate tissues inferiorly. The VIP guide was placed on the glenoid and used to confirm placement and trajectory of the central guidepin. The guidepin was inserted and advanced just through the far cortex ensuring adequate central fixation length. The glenoid was prepared according to retail management trainee specifications for a augmented baseplate and central post. The baseplate was impacted onto the glenoid surface. The locking guide was then used to drill and place appropriately lengthed inferior, superior, anterior, and posterior screws. The ytlr-jrq-ikhxheyxh reamer was used to confirm adequate peripheral reaming. The glenosphere was applied with the foundry worker general and then impacted to engage the Forbes taper. It was then locked with appropriate countersinking of the setscrew. The glenosphere was inspected and found to have good fit, appropriate positioning, and no soft tissue or bony impingement. Attention was then turned back to the proximal humerus. The humeral trial cup was connected. Trialing was commenced with +3 mm liner. The shoulder was reduced and taken through range of motion. Trial components were built up to +6 mm liner to achieve excellent stability and appropriate tension on the deltoid and conjoined tension. The trial components were removed from the proximal humerus. The wound was copiously irrigated with normal saline. The the proximal humeral stem and suture cup were assembled and brought over the proximal humerus. A small amount of vancomycin powder was distributed in the proximal humerus. The humeral component and suture cup were impacted into place. The trial liner was added, and the shoulder was reduced provisionally, and then the final liner was added, but testing with this regular liner left some instability that was not desired so it was removed and swapped for a constrained liner of the same +6 mm size with excellent stability achieved again and good motion and tension. The shoulder was copiously irrigated with Betadine and normal saline. Vancomycin powder was distributed deeply about the shoulder and through subcutaneous tissues. The deltopectoral interval was approximated with 2-0 Monocryl burying the cephalic vein. Subcutaneous tissue was irrigated then closed using 2-0 Monocryl in a buried interrupted fashion. Skin was closed using 3-0 Monocryl in a buried subcuticular fashion. Skin glue was applied to the incision. A silver impregnated bandage was placed over the incision. The extremity was placed into a shoulder immobilizer. The patient awoke from anesthesia without complication and was taken to the recovery room in stable condition. Date of Procedure: 06/05/25
[2025-06-05] MEDS: ceFAZolin 2 GM/50 ML BAG IVPB (08:00)
[2025-06-05] MEDS: TRANEXAMIC ACID/SOD. CHL. 1,000 MG/100 ML BAG 600 MG IVPB (08:06)
[2025-06-05] MEDS: Bupivacaine 0.25% Pres-Free W/EPI 30 ML VIAL (08:29)
--- NOTE | 2025-06-05 09:17 | W.ANESNERVE ---
Nerve Block Single Injection Procedure Date and Time Date Performed: 06/05/25 Procedure Start: 07:20 Location Where Procedure Performed Procedure Location: Day Surgery Unit Reason Performed: Postoperative Analgesia Requesting Provider: Arvin Casillas Timeout Performed Timeout Performed: Yes Monitoring Used Blood Pressure, SpO2 and See EMR for corresponding vital signs Sterility Sterility: Hand Hygiene, Surgical Cap, Surgical Mask, Sterile Gloves and Chlorhexidine Sedation Given During Procedure Sedation Given (Indicate Dose Given): Propofol IV Dose:: 2ml Patient Mental Status Patient Mental Status: Sedate with meaningful communication Nerve Block 1st Nerve Block: Laterality: Left Block Type: Interscalene Ultrasound Image Saved?: Yes Needle / Catheter Used: 100mm SonoPlex II Local Anesthetic Bolus (Indicate Dose Given): Lidocaine used for local infiltration of skin, Bupivacaine 0.5% Dose:: 10ml and Exparel Dose:: 10ml Additives (Indicate Dose Given): None Ultrasound: Sterile probe cover and gel used Nerve Stimulator: Supplement to Ultrasound use Paresthesia: None Procedure Tolerated: No Complications and Patient tolerated well Procedure Outcome: Successful Performed By: Verónica Braxton Supervised By: Chas Leo
[2025-06-05] MEDS: Vancomycin 1,000 MG VIAL 1000 MG (09:38)
--- NOTE | 2025-06-05 10:42 | W.ANESPOSTOP ---
Postoperative Evaluation Date, Time and Location Date Performed: 06/05/25 Time Performed: 10:43 Patient Location: PACU Vital Signs Most Recent Imported Vital Signs: Most Recent Vital Signs Temp Pulse Resp BP Pulse Ox 36.3 C L 64 24 126/73 95 06/05/25 10:39 06/05/25 07:31 06/05/25 07:31 06/05/25 07:31 06/05/25 07:31 Pain Score Most Recent Pain Score: Most Recent Pain Score Pain Level 6 06/05/25 10:39 Assessment Mental Status: Awake (Alert & Oriented to Patient Baseline) Airway and Respiratory Function: Patent airway with normal (patient baseline) respiratory exam Cardiovascular Function: Hemodynamically Stable Hydration Status: Adequately Hydrated Nausea & Vomiting: No Nausea or Vomiting Pain: Pain is tolerable per patient Peripheral Nerve Block: Regional nerve block not resolved at time of post operative discharge
[2025-06-05] MEDS: fentaNYL 100 MCG/2 ML VIAL IVP (10:48)
--- NOTE | 2025-06-05 11:00 | DI.RAD_ITS ---
Exam(s) XR SHOULDER LT COMPLETE 2+V EXAM: XR SHOULDER LT COMPLETE 2+V INDICATION: Shoulder Arthritis. COMPARISON: CR XR SHOULDER LT COMPLETE 2+V from 05/07/2025 TECHNIQUE: 2D digital imaging was performed. Two views, portable FINDINGS: A reverse shoulder prosthesis has been placed. The alignment appears satisfactory. There is residual postsurgical air in the soft tissues. DATA REPOSITORY: RADIATION DOSE DELIVERED:
[2025-06-05] MEDS: ceFAZolin 1 GM/50 ML BAG IVPB (11:50)
[2025-06-05] MEDS: Lactobacillus Acidophilus CAP 1 CAP PO (12:21)
== END 2025-06-05 12:58 | disposition home or self-care (01) ==
PROVIDERS: PCP Internal Medicine; Visit Provider Student in an Organized Health Care Education/Training Program
PROC: (CPT 23472; principal; 2025-06-05 07:30)
DX: M75.102 Unspecified rotator cuff tear or rupture of left shoulder, not specified as traumatic (principal); M12.812 Other specific arthropathies, not elsewhere classified, left shoulder; M75.22 Bicipital tendinitis, left shoulder; I10 Essential (primary) hypertension; G89.18 Other acute postprocedural pain
CPT/HCPCS: 23472; 23430; 64415; 73030; J0131; J0665; J0666; J0690; J1100; J1885; J2003; J2405; J2704; J3010; J3373

== ENCOUNTER 2025-06-17 11:43 | Outpatient (CLI) | payer OTHER, SELFPAY ==
--- NOTE | 2025-06-17 11:00 | DI.RAD_ITS ---
Exam(s) XR SHOULDER LT COMPLETE 2+V EXAM: XR SHOULDER LT COMPLETE 2+V CLINICAL HISTORY: F/U LEFT RTSA. TECHNIQUE: 2D digital imaging was performed. Two images were obtained. Y and Grashey views were obtained. COMPARISON: CR XR SHOULDER LT COMPLETE 2+V from 06/05/2025 FINDINGS: BONES: There are stable post operative changes of a left reverse total shoulder arthroplasty present. No fracture or dislocation. JOINTS: The orthopedic hardware is in good position. No evidence of hardware loosening. Degenerative changes are seen at the acromioclavicular joint. SOFT TISSUE: Normal. IMPRESSION: Stable left reverse total shoulder arthroplasty. DATA REPOSITORY: RADIATION DOSE DELIVERED:
== END 2025-06-17 11:44 | disposition home or self-care (01) ==
LOC: DIORS 11:43
PROVIDERS: PCP Internal Medicine; Visit Provider Student in an Organized Health Care Education/Training Program
DX: M75.102 Unspecified rotator cuff tear or rupture of left shoulder, not specified as traumatic (principal); M12.812 Other specific arthropathies, not elsewhere classified, left shoulder
CPT/HCPCS: 73030

== ENCOUNTER → 2025-07-17 13:24 | Outpatient (CLI) | payer OTHER, SELFPAY ==
--- NOTE | 2025-07-17 | DI.RAD_ITS ---
Exam(s) XR KNEE RT 3V AP,LAT,LAMONTE EXAM: XR KNEE RT 3V AP,LAT,LAMONTE CLINICAL HISTORY: RT KNEE PAIN,M25.561, [id number]. TECHNIQUE: 2D digital imaging was performed. COMPARISON: No exams were available for comparison FINDINGS: 3 views No evidence of acute fracture but there is a moderate size joint effusion. There are mild degenerative changes in the medial compartment. No prominent joint space narrowing but there are small marginal osteophytes evident in the medial compartment. Lateral compartment appears unremarkable. Minimal degenerative changes in the patellofemoral compartment. Vascular calcification noted in the popliteal artery and proximal runoff vessels in the calf. IMPRESSION: Minimal bone findings. Moderate size joint effusion evident. This may signify the presence of an internal derangement. If clinically indicated follow-up MRI can be performed. DATA REPOSITORY: RADIATION DOSE DELIVERED:
== END ==
PROVIDERS: PCP Internal Medicine; Visit Provider Occupational Therapist
DX: M25.561 Pain in right knee (principal); M25.461 Effusion, right knee
CPT/HCPCS: 73562